=== PATIENT | female | born 1980 | race Caucasian/White ===

== ENCOUNTER 2022-03-02 10:07 | Outpatient (CLI) | payer BC, SELFPAY ==
--- NOTE | 2022-03-02 10:15 | CRLHL7_ITS ---
For Patients: As a result of the Century Cures Act, medical imaging exams and procedure reports are released immediately into your electronic medical record. You may view this report before your referring provider. If you have questions, please contact your health care provider. Indication: Neck pain and radiculopathy. Technique: MRI of the cervical spine was performed without the use of intravenous contrast. Comparison: None relevant available. Findings: The vertebral body heights appear maintained without evidence of fracture. No discrete T1 hypointense marrow infiltrating process. The disc space heights appear preserved. Hemangioma noted within the C4 vertebral body. No abnormal cord signal. C2-3: No spinal canal or neural foraminal narrowing. C3-4: No spinal canal or neural foraminal narrowing. C4-5: No spinal canal or neural foraminal narrowing. C5-6: Shallow disc bulge with minimal spinal canal narrowing. Mild neural foraminal narrowing secondary to uncovertebral joint and facet hypertrophy. C6-7: No spinal canal narrowing. Mild neural foraminal narrowing secondary to uncovertebral joint and facet hypertrophy. C7-T1: No spinal canal or neural foraminal narrowing. Impression: 1. At C5-6, shallow disc bulge with minimal spinal canal narrowing. Mild neural foraminal narrowing. 2. At C6-7, mild neural foraminal narrowing. 3. No abnormal cord signal. Dictated by Mariusz Cramer MD @ 03/02/2022 12:18:02 PM (Electronically Signed)
== END 2022-03-02 10:08 | disposition home or self-care (01) ==
PROVIDERS: PCP Physician Assistant Medical; Visit Provider Physician Assistant Medical
DX: M54.2 Cervicalgia (principal); M50.222 Other cervical disc displacement at C5-C6 level; M50.223 Other cervical disc displacement at C6-C7 level; R29.898 Other symptoms and signs involving the musculoskeletal system
CPT/HCPCS: 72141

== ENCOUNTER 2023-03-15 17:28 | Outpatient (CLI) | payer BC, SELFPAY | END 2023-03-15 17:29 | disposition home or self-care (01) | PROVIDERS: PCP Physician Assistant Medical; Visit Provider Emergency Medicine | DX: R25.3 Fasciculation (principal) | CPT/HCPCS: 82306; 82728; 83735; 84443 ==

== ENCOUNTER 2023-03-21 21:40 | Emergency (ER) | payer BC, SELFPAY ==
[2023-03-21 21:46] VITALS: BP 107/73; PULSE 81; RESP 18; TEMP 36.6; O2SAT 98; BMI 20.8
--- NOTE | 2023-03-21 22:00 | ED_ITS ---
HPI - General Adult General Time Seen by Provider: 22:01 Date Seen: 03/21/23 Chief complaint: Neuro Symptoms/Altered Deficit Stated complaint: Facial Numbness Time Seen by Provider: 03/21/23 21:41 Source: patient and RN notes reviewed Mode of arrival: ambulatory Limitations: no limitations History of Present Illness HPI narrative: This 42-year-old female is seen in exam room 5, coming in with symptoms that have been plaguing her for about a month now. She has had some numbness and tingling in her hands and feet, she has noticed it in her face. Last summer she had eye twitching, can not remember which 1. Now she notes she will get twitching muscles, can hit in different parts of her body. Mostly though she notes it in her feet and her legs at night. She did see a primary care provider in [place], notes reviewed. She had been concerned that the spironolactone that she had taken for acne had started this. She has been off this medicine for at least weeks now and symptoms have not changed. Over the course of the last couple weeks, is noticing more facial numbness, both sides of her face can be affected. Right now it seems to be largely her left cheek. She can feel her finger when she touches but she states it just feels numb otherwise. The refer of her mouth felt numb this morning. She denies any visual changes, no double vision. She denies any difficulty with speech or swallowing. She did go online, read about ALS. I have tried to reassure her that I do not think that this is likely ALS. She is not drinking any alcohol. She did try a gummy last night, she wonders if that is what affected her with a refer her mouth, she did not like the symptoms from this. She states she will never do that again. As far as sleeping, about every 4th night to get a good night sleep, she is up worried about her symptoms all night long. She notes that she has really had an increase in what is described as health anxiety, worrying about her health and different symptoms she is having. She had a fall on [place], did not hit her head. Her ferritin was found to be low, she was started on visit trauma and see about a week ago. I have advised her to continue taking that. We did discuss restless leg syndrome and low ferritin. She does not feel like her legs are necessarily restless legs syndrome, feels like it is more twitching. Related Data Home Medications Medication Instructions Recorded Confirmed cholecalciferol (vitamin D3) 25 25 mcg PO QDAY 01/29/22 03/21/23 mcg (1,000 unit) capsule elderberry fruit 350 mg capsule mg PO 01/29/22 03/15/23 magnesium 200 mg tablet 200 mg PO QDAY 01/29/22 03/21/23 omega-3 fatty acids-fish oil 300 cap PO 01/29/22 03/15/23 mg-500 mg capsule (Fish Oil) iron,carbonyl 65 mg-vitamin C 125 1 tab PO DAILY 03/21/23 03/21/23 mg tablet,delayed release (Vitron-C) Previous Rx's Medication Instructions Recorded trazodone 50 mg tablet 50 mg PO QHS PRN #14 tabs 03/21/23 Allergies Allergy/AdvReac Type Severity Reaction Status Date / Time Penicillins Allergy Mild Rash Verified 03/21/23 21:57 Review of Systems Narrative: [facility] per [facility]PI. [facility] Twitching ?R25.3 - Fasciculation (ICD-10) Surgical History History of ovarian cystectomy ?Z98.890 - Other specified postprocedural states (ICD-10) ?Z87.42 - Personal history of other diseases of the female genital tract (ICD-10) Social History Narrative: 2 children drinks alcohol occasionally non-smoker Smoking Status: Former smoker Do you use any of these nicotine containing products: None Second hand tobacco smoke exposure: No How often do you have a drink containing alcohol: monthly or less AUDIT-C Alcohol total score: 1 Non-prescribed substance use: denies use Little interest or pleasure in doing things: several days Feeling down, depressed, or hopeless: several days Exam Const: Vital Signs, click to edit/add: Vital Signs - 24 hr 03/21/23 21:46 Temperature 97.9 F Pulse Rate [Pulse Oximeter] 81 Respiratory Rate 18 Blood Pressure [Ri ght Upper Arm] 107/73 Pulse Oximetry 98 Oxygen Delivery Me thod Room Air This is a very pleasant 42-year-old female but do have a sense of anxiety. She is alert, interactive, ambulatory into the ED of her own accord. Pupils equal round reactive to light sclera clear extraocular muscles intact, symmetrical facial function. TMs canals normal. She can feel throughout her face, no true numbness. Neck is supple, no cervical adenopathy, no thyromegaly masses or nodules. Lungs are clear, good air entry, no wheezing or crackles. CV regular rate and rhythm, no murmur, normal S1-S2, no S3-S4. She has no lower extremity edema. DTRs are 1 to 2+ and symmetric throughout her extremities. Strength is 5 5 and symmetric. I do not see any tremor, no fasciculations or twitching while she is here. Documenting provider has reviewed patient's vital signs: yes Course Course ED Course: I spent some time discussing with patient and her her symptoms. I do think given that she is feeling numbness in not necessarily tingling in the face, would consider doing an MRI with and without to rule out any underlying [employer] disease. I unfortunately cannot order that for her, I do not have MRI capacity at this time to be able to do it and I cannot do outpatient orders for her. Discussed with her if her primary care provider does not want to do this, then perhaps she could ask for referral to Neurology and they could further evaluate her. I do think given her level of health anxiety, it might be necessary to do this either with a neurology consultation or just having a brain MRI done to ensure no underlying pathology. I have discussed trazodone for use of a sleep aid, encourage her to consider treatment of her anxiety. We discussed doing a head CT but given the nature of her symptoms, I highly doubt this is going to show anything it is just exposure to radiation. We discussed the rationale for deferring to an MRI. She does not need emergent MRI tonight. Vital Signs Vital signs: Initial Vital Signs Temperature 97.9 F 03/21/23 21:46 Temperature Source Temporal Artery Scan 03/21/23 21:46 Pulse Rate 81 03/21/23 21:46 Respiratory Rate 18 03/21/23 21:46 Blood Pressure 107/73 03/21/23 21:46 Blood Pressure Mean 84 03/21/23 21:46 Blood Pressure Position Sitting 03/21/23 21:46 Pulse Oximetry 98 03/21/23 21:46 Oxygen Delivery Method Room Air 03/21/23 21:46 Vital Signs Temperature 97.9 F 03/21/23 21:46 Pulse Rate 81 03/21/23 21:46 Respiratory Rate 18 03/21/23 21:46 Blood Pressure 107/73 03/21/23 21:46 Pulse Oximetry 98 03/21/23 21:46 Oxygen Delivery Method Room Air 03/21/23 21:46 Temperature 97.9 F 03/21/23 21:46 Pulse Rate 81 03/21/23 21:46 Respiratory Rate 18 03/21/23 21:46 Blood Pressure 107/73 03/21/23 21:46 Pulse Oximetry 98 03/21/23 21:46 Oxygen Delivery Method Room Air 03/21/23 21:46 Discharge Plan Discharge Clinical Impression: Facial numbness, Twitching, Numbness and tingling of both feet, Numbness and tingling of both legs Patient Disposition: Home, Self-Care Condition: Stable Instructions: Paresthesia (ED) Additional Instructions: Do recommend that you talk to her primary provider further and see if she would consider ordering MRI of your brain with and without IV contrast. This certainly will rule out any central process for your symptoms. Anxiety could be playing a large role but to affectively rule out any central nervous system abnormality, the MRI could be done. Neurology consultation could also be considered. I do think you should consider treating your anxiety regardless of workup of your symptoms. I will write for some trazodone which can be used to help with sleep. This is an old time antidepressant that has sleep properties. It does not necessarily have to be used every night. You could try melatonin and Tylenol p.m. or Benadryl. Activity Level: Activity as Tolerated Prescriptions: New trazodone 50 mg tablet 50 mg PO QHS PRNQty: 14 0RF No Action Fish Oil 300-500 mg capsule PO elderberry fruit 350 mg capsule PO cholecalciferol (vitamin D3) 25 mcg (1,000 unit) capsule 25 mcg PO QDAY Hold Instructions: Order Change magnesium 200 mg tablet 200 mg PO QDAY Hold Instructions: Order Change Vitron-C 65 mg iron- 125 mg tablet,delayed release (DR/EC) 1 tab PO DAILY Follow Up/Referrals: Hawa Dowling PA-C [Primary Care Provider] - Stand Alone Forms: MyHealth Info Instructions
== END 2023-03-21 22:54 | disposition home or self-care (01) ==
PROVIDERS: Emergency Provider Family Medicine; PCP Physician Assistant Medical
DX: G51.9 Disorder of facial nerve, unspecified (principal); R20.2 Paresthesia of skin; R25.3 Fasciculation
CPT/HCPCS: 99283; 99284

== ENCOUNTER 2023-05-17 15:49 | Outpatient (CLI) | payer BC, SELFPAY ==
--- NOTE | 2023-05-17 16:00 | US_ITS ---
Patient: JOSE L ROJAS Facility:?[facility] Patient ID:?[id number] Site Patient ID:?[id number]. Site :?[id number] Study:?US-Abdomen RUQ-05/17/2023 5:05:21 PM Ordering Physician:Hawa Osei Final Report: INDICATION: Abnormal appearing gallbladder wall on outside CT. TECHNIQUE: Ultrasound abdomen limited. Sonographic images of the right upper quadrant were obtained using putnam-scale and color Doppler images. COMPARISON: None. Specifically, the outside CT is not available. FINDINGS: Liver: Normal in size and echotexture. No masses. No intrahepatic biliary dilatation. Gallbladder: Gallbladder is incompletely distended. Adenomyomatosis in the gallbladder wall. No stones visible. Common bile duct: 5 mm. Pancreas: Normal. Right kidney: Normal in size. Normal echotexture and cortex. No suspicious masses, stones, or hydronephrosis. Vasculature: Proximal abdominal aorta and IVC are normal. IMPRESSION: Benign adenomyomatosis in the gallbladder wall. Otherwise normal. Dictated by Bari Malcolm MD @ 05/18/2023 11:40:48 AM Signed by:?Bari Malcolm MD @05/18/2023 11:40:48 AM (Electronic Signature)
== END 2023-05-17 15:50 | disposition home or self-care (01) ==
PROVIDERS: PCP Physician Assistant Medical; Visit Provider Physician Assistant Medical
DX: K82.8 Other specified diseases of gallbladder (principal)
CPT/HCPCS: 76705

== ENCOUNTER 2023-06-01 09:34 | Outpatient (CLI) | payer BC, SELFPAY | END 2023-06-01 09:35 | disposition home or self-care (01) | LOC: FRMREF 09:35 | PROVIDERS: PCP Physician Assistant Medical; Visit Provider Surgery | DX: R10.11 Right upper quadrant pain (principal) | CPT/HCPCS: 80076; 82728 ==

== ENCOUNTER 2023-06-15 08:50 | Outpatient (CLI) | payer BC, SELFPAY | END 2023-06-15 08:51 | disposition home or self-care (01) | LOC: NFLDREF 06-17 05:45 | PROVIDERS: PCP Physician Assistant Medical; Referring Provider Physician Assistant Medical; Visit Provider Physician Assistant Medical | DX: Z01.818 Encounter for other preprocedural examination (principal); R79.0 Abnormal level of blood mineral | CPT/HCPCS: 82728 ==

== ENCOUNTER 2023-06-20 06:16 | Day surgery (SDC) | payer BC, SELFPAY ==
[2023-06-20] VITALS (15 sets, daily range): BP systolic 91–113; BP diastolic 64–79; PULSE 60–77; RESP 12–16; TEMP 36.1–36.5; O2SAT 93–100; BMI 19.3
--- OUTSIDE RECORDS SUMMARY | 2023-06-20 06:18 | XMS_ITS | Clinical Summary ---
Author Name Unknown Organization [facility] Address [address] [place] [id number] Care Team Providers Care Manager Heavy Duty Name Role Phone Clinic, [facility] Primary Care Provider Allergies Active Allergy Reactions Criticality Noted Date Comments Blood-Group Specific Substance 06/09/2009 Patient has a Probable Passive Anti-D due to Rhogam. Blood product orders may be delayed. Penicillins Hives 04/21/2005 Medications Medication Sig Dispensed Refills Start Date End Date Status hydrOXYzine (ATARAX) 25 MG tablet Take 1 tablet (25 mg) by mouth 3 times daily as needed for anxiety 30 tablet 03/17/2022 Active Active Problems Problem Noted Date Diagnosed Date Myopia of both eyes with astigmatism 10/27/2015 Migraine headache 11/16/2005 Encounters Date Type Department Care Team Description 04/29/2023 2:51 PM CDT - 04/29/2023 5:09 PM CDT Emergency [facility] [address] [place] [address] Yazmin Whyte MD Generalized abdominal pain; Chest pain, unspecified type Discharge Disposition: Home or Self Care 04/29/2023 Travel 04/19/2023 9:26 AM SITE HEAD - 04/19/2023 11:59 PM SITE HEAD Hospital Encounter [facility] [address], [address] [place] [address] Jenelle Miranda MD Visit for screening mammogram Discharge Disposition: Home or Self Care 04/19/2023 Travel from Last 3 Months Immunizations Name Administration Dates Next Due [id number] Novel Flu 04/03/2009 HPV Quadrivalent 08/08/2008,09/21/2007, 8 Influenza (H1N1) 04/03/2009 Influenza (IIV3) PF 11/24/2005 Influenza Vaccine 18-64 (Flublok) 11/29/2019 Influenza,INJ,MDCK,PF,Quad >6mo(Flucelvax) 02/26,12/23/2017 TDAP (Adacel,Boostrix) 03/12/2020 Tdap (Adult) Unspecified Formulation 07/24/2007 Family History Medical History Relation Comments Depression Brother Unknown/Adopted Father Relation Status Comments Brother Alive Father Mother Alive Social History Tobacco Use Types Packs/Day Years Used Date Smoking Tobacco: Never Smokeless Tobacco: Never Alcohol Use Standard Drinks/Week Comments Yes 0 (1 standard drink = 0.6 oz pur e alcohol) occ. PHQ-2 Answer Date Recorded PHQ-2 Score 0 03/12/2020 Adolescent Education Answer Date Record ed Getting School Help Needed Not on file 11/27 Sex and Gender Information Value Date Recorded Sex Assigned at Not on file Gender Identity Not on file Sexual Orientation Not on file Last Filed Vital Signs Vital Sign Reading Time Taken Comments Blood Pressure 102/78 04/29/2023 5:06 PM CDT Pulse 85 04/29/2023 5:06 PM CDT Temperature 36.7 ??C (98 ??F) 04/29/2023 2:29 PM CDT Respiratory Rate 16 04/29/2023 5:06 PM CDT Oxygen Saturation 98% 04/29/2023 5:06 PM CDT Inhaled Oxygen Concentration - - Weight 63.9 kg (140 lb 14 oz) 04/29/2023 2:29 PM CDT Height 177.8 cm (5' 10) 04/29/2023 2:29 PM CDT Body Mass Index 20.21 04/29/2023 2:29 PM CDT Plan of Treatment Health Maintenance Due Date Last Done Comments ADVANCE CARE PLANNING 1981 ANNUAL REVIEW OF HM ORDERS 1981 HEPATITIS C SCREENING 11/07/1999 HEPATITIS B IMMUNIZATION (1 of 3 - 19+ 3-dose series) 2000 PAP 2002 COVID-19 Vaccine (1 - 2022- season) 2022 INFLUENZA VACCINE (#1) 2022 0, 02/26/2019, 12/23/2017, Additional history exists PHQ-2 (once per calendar year) 2023 03/12/2020 YEARLY PREVENTIVE VISIT 04/06/2023 04/06/19 23, 04/03/2021, 03/12/2020 LIPID 03/12/2025 03/12/2020 MAMMO SCREENING 04/18/2025 04/19/2023, 03/0 04/2022, 01/19/2017 GLUCOSE 04/28/2026 04/29/2023, 02/0 02/2022, 03/12/2020 DTAP/TDAP/TD IMMUNIZATION (3 - Td or Tdap) 03/12/2030 03/12/2020, 07/24/2007, 07/24/2007 HPV IMMUNIZATION Completed 08/08/2008, 08/2007, 07/24/2007 HIV SCREENING Completed 06/04/2009 IPV IMMUNIZATION Aged Out No longer e ligible based on patient's age to complete this topic MENINGITIS IMMUNIZATION Aged Out No l onger eligible based on patient's age to complete this topic Pneumococcal Vaccine: Pediatrics (0 to 5 Years) and At-Risk Patients (6 to 64 Years) Aged Out No longer eligible based on patient's age to complete this topic RSV MONOCLONAL ANTIBODY Aged Out No l onger eligible based on patient's age to complete this topic Procedures Procedure Name Priority Date/Time Associated Diagnosis Comments XR CHEST 2 VIEWS STAT 04/29/2023 4:[address] ABDOMEN PELVIS W CONTRAST STAT 04/29/2023 3:59 PM CDT EKG 12-LEAD, TRACING ONLY STAT 04/29/2023 3:37 PM CDT ROUTINE UA WITH MICROSCOPIC REFLEX TO CULTURE STAT 04/29/2023 3:21 PM CDT EXTRA RED TOP TUBE STAT 04/29/2023 3: 02 PM CDT CBC WITH PLATELETS & DIFFERENTIAL STAT 04/29/2023 2:58 PM CDT D DIMER QUANTITATIVE STAT 04/29/2023 2:58 PM CDT MAGNESIUM STAT 04/29/2023 2:58 PM CDT TSH WITH FREE T4 REFLEX STAT 04/29/2023 2:58 PM CDT HEPATIC FUNCTION PANEL STAT 04/29/2023 2:58 PM CDT EXTRA BLUE TOP TUBE STAT 04/29/2023 2 :58 PM CDT CBC WITH PLATELETS AND DIFFERENTIAL STAT 04/29/2023 2:58 PM CDT EXTRA TUBE STAT 04/29/2023 2:58 PM CDT HCG QUALITATIVE STAT 04/29/2023 2:58 PM CDT TROPONIN T, HIGH SENSITIVITY STAT 04/29/2023 2:58 PM CDT BASIC METABOLIC PANEL STAT 04/29/2023 2:58 PM CDT MA SCREENING WITH IMPLANTS BILATERAL W/ JOSE Routine 04/19/2023 10:07 AM SITE HEAD Visit for screening mammogram LIPID REFLEX TO DIRECT LDL PANEL Routine 03/12/2020 12:03 PM SITE HEAD Routine general medical examination at a health care facility REMOVE IMPACTED EAR WAX Routine 04/27/2000 1:35 PM SITE HEAD Impacted Cerumen from Last 3 Months or Most Recently Relevant to Health Maintenance Results * XR Chest 2 Views (04/29/2023 4:08 PM CDT) Anatomical Region Laterality Modality Chest Computed Radiogr aphy Impressions 04/29/2023 4:10 PM CDT IMPRESSION: No infiltrate, pleural effusion or pneumothorax. The cardiac and mediastinal silhouettes are normal. KAYLA EMERY MD Narrative 04/29/2023 4:10 PM CDT XR CHEST 2 VIEWS 04/29/2023 4:08 PM HISTORY: cp COMPARISON: 03/17/2022 Procedure Note Kayla Emery MD - 04/29/2023 XR CHEST 2 VIEWS 04/29/2023 4:08 PM HISTORY: cp COMPARISON: 03/17/2022 IMPRESSION: No infiltrate, pleural effusion or pneumothorax. The cardiac and mediastinal silhouettes are normal. KAYLA EMERY MD Yazmin Whyte MD IMG DIAGNOSTIC IMAGI NG ORDERABLES * CT Abdomen Pelvis w Contrast (04/29/2023 3:59 PM CDT) Anatomical Region Laterality Modality Abdomen/Pelvis, SUBRAD CT SOCRATES DY, UMP CT ABDOMEN PELVIS, RAD CT Computed Tomography Impressions 04/29/2023 4:13 PM CDT IMPRESSION: 1. ??Mild nonspecific circumferential bladder wall thickening which can be correlated with urinalysis as clinically indicated. 2. ??Otherwise, no acute findings within the abdomen or pelvis. 3. ??Focal soft tissue thickening of the gallbladder fundus which could represent gallbladder adenomyomatosis but should be further evaluated by right upper quadrant ultrasound which could be performed in the outpatient setting. SHANA GARCIA MD SYSTEM ID: ??[id number] Narrative 04/29/2023 4:[address] ABDOMEN PELVIS W CONTRAST 04/29/2023 3:59 PM CLINICAL HISTORY: Abdominal pain. abd pain, nausea TECHNIQUE: CT scan of the abdomen and pelvis was performed following injection of IV contrast. Multiplanar reformats were obtained. Dose reduction techniques were used. CONTRAST: 71mL Isovue-370 COMPARISON: None. FINDINGS: LOWER CHEST: Lung bases are clear. HEPATOBILIARY: Unremarkable liver. There is focal soft tissue thickening at the gallbladder at the fundus. No radiopaque gallstones. No biliary ductal dilatation. PANCREAS: No significant mass, duct dilatation, or inflammatory change. SPLEEN: Normal size. ADRENAL GLANDS: No significant nodules. KIDNEYS/BLADDER: Symmetric enhancement. No hydronephrosis. Right interpolar renal cyst, not requiring follow-up. Subcentimeter hypoattenuating lesion of the left kidney is too small to characterize but does not require specific follow-up. Mild circumferential wall thickening of the bladder. BOWEL: No obstruction or inflammatory change. Appendix is not definitely visualized; however, no focal inflammatory changes are seen in the right lower quadrant. PELVIC ORGANS: No pelvic masses. Tampon in the vagina. ADDITIONAL FINDINGS: No ascites. No adenopathy in the abdomen or pelvis. No abdominal aortic aneurysm. MUSCULOSKELETAL: No acute osseous findings. Partially imaged bilateral breast implants. Procedure Note Shana Garcia MD - 04/29/2023 CT ABDOMEN PELVIS W CONTRAST 04/29/2023 3:59 PM CLINICAL HISTORY: Abdominal pain. abd pain, nausea TECHNIQUE: CT scan of the abdomen and pelvis was performed following injection of IV contrast. Multiplanar reformats were obtained. Dose reduction techniques were used. CONTRAST: 71mL Isovue-370 COMPARISON: None. FINDINGS: LOWER CHEST: Lung bases are clear. HEPATOBILIARY: Unremarkable liver. There is focal soft tissue thickening at the gallbladder at the fundus. No radiopaque gallstones. No biliary ductal dilatation. PANCREAS: No significant mass, duct dilatation, or inflammatory change. SPLEEN: Normal size. ADRENAL GLANDS: No significant nodules. KIDNEYS/BLADDER: Symmetric enhancement. No hydronephrosis. Right interpolar renal cyst, not requiring follow-up. Subcentimeter hypoattenuating lesion of the left kidney is too small to characterize but does not require specific follow-up. Mild circumferential wall thickening of the bladder. BOWEL: No obstruction or inflammatory change. Appendix is not definitely visualized; however, no focal inflammatory changes are seen in the right lower quadrant. PELVIC ORGANS: No pelvic masses. Tampon in the vagina. ADDITIONAL FINDINGS: No ascites. No adenopathy in the abdomen or pelvis. No abdominal aortic aneurysm. MUSCULOSKELETAL: No acute osseous findings. Partially imaged bilateral breast implants. IMPRESSION: 1. Mild nonspecific circumferential bladder wall thickening which can be correlated with urinalysis as clinically indicated. 2. Otherwise, no acute findings within the abdomen or pelvis. 3. Focal soft tissue thickening of the gallbladder fundus which could represent gallbladder adenomyomatosis but should be further evaluated by right upper quadrant ultrasound which could be performed in the outpatient setting. SHANA GARCIA MD SYSTEM ID: [id number] Yazmin Whyte MD IMG CT ORDERABLES * EKG 12 lead (04/29/2023 3:37 PM CDT) Systolic Blood Pressure mmHg RADIOLOGY RESULTS Diastolic Blood Pressure mmHg RADIOLOGY RESULTS Ventricular Rate 70 BPM RAD IOLOGY RESULTS Atrial Rate 70 BPM RADIOLOG Y RESULTS CT Interval 158 ms RADIOLOG Y RESULTS QRS Duration 78 ms RADIOLO GY RESULTS QT 382 ms RADIOLOGY RESULTS QTc 412 ms RADIOLOGY RESULTS P [place] 70 degrees RADIOLOGY RESULTS R AXIS 66 degrees RADIOLOGY RESULTS T [place] 58 degrees RADIOLOGY RESULTS Interpretation ECG Sinus rhythm with sinus arrhythmia Normal ECG When compared with ECG of 17-MAR-2022 11:25, No significant change was found Unconfirmed report - interpretation of this ECG is computer generated - see medical record for final interpretation Confirmed by - EMERGENCY ROOM, PHYSICIAN ([id number]), legal editor [place] ([id number]) on 05/02/2023 7:38:39 AM RADIOLOGY RESULTS 04/29/2023 3:37 PM CDT 05/02/2023 7:38 AM CDT Yazmin Whyte MD ECG ORDERABLES RADIOLOGY RESULTS * UA with Microscopic reflex to Culture (04/29/2023 3:21 PM CDT) Color Urine Straw Colorless, Straw, Light Yellow, Yellow 04/29/2023 3:45 PM CDT [facility] Appearance Urine Clear Clear 04/29/19 24 3:45 PM CDT [facility] Glucose Urine Negative Negative mg/dL 04/29/2023 3:45 PM CDT [facility] Bilirubin Urine Negative Negative 3:45 PM CDT [facility] Ketones Urine Negative Negative mg/dL 04/29/2023 3:45 PM CDT [facility] Specific Honor Urine 1.004 1.003 - 1.035 04/29/2023 3:45 PM CDT [facility] Blood Urine Negative Negative 04/29/2023 3:45 PM CDT [facility] pH Urine 6.5 5.0 - 7.0 04/29/2023 3:45 PM CDT [facility] Protein Albumin Urine Negative Negative mg/dL 04/29/2023 3:45 PM CDT [facility] Urobilinogen Urine Normal Normal, 2.0 mg/dL 04/29/2023 3:45 PM CDT [facility] Nitrite Urine Negative Negative 04/29/2023 3:45 PM CDT [facility] Leukocyte Esterase Urine Negative Negative 04/29/2023 3:45 PM CDT [facility] RBC Urine 0 <=2 /HPF 04/29/2023 3:45 PM CDT [facility] WBC Urine <1 <=5 /HPF 04/29/2023 3:45 PM CDT [facility] Squamous Epithelials Urine 1 <=1 /HPF 04/29/2023 3:45 PM CDT [facility] Urine MID-STREAM URINE SPECIMEN / Unknown Non-blood Collection / Unknown 04/29/2023 3:21 PM CDT 04/29/2023 3:41 PM CDT Narrative [facility] - 04/29/2023 3:45 PM CDT Urine Culture not indicated Yazmin Whyte MD LAB - URINE ORDERABL ES [facility] [address] Lab (1st floor, no room number) [place] [address] [place] [address] * Extra Red Top Tube (04/29/2023 3:02 PM CDT) Hold Specimen [facility] 04/29/2023 4:06 PM CDT LABORATORY Blood BLOOD SPECIMEN / Unknown Venipuncture / Unknown 04/29/2023 3:02 PM CDT 04/29/2023 3:02 PM CDT Yazmin Whyte MD LAB - BLOOD ORDERABL ES [facility] [address] Lab (1st floor, no room number) [address] [place] [address] * Extra Blue Top Tube (04/29/2023 2:58 PM CDT) Hold Specimen [facility] 04/29/2023 4:06 PM CDT [facility] Blood STRUCTURE OF LEFT UPPER LIMB / Unknown Venipuncture / Unknown 04/29/2023 2:58 PM CDT 04/29/2023 3:03 PM CDT Yazmin Whyte MD LAB - BLOOD ORDERABL ES [facility] [address] Lab (1st floor, no room number) [place] [address], [facility] * CBC with platelets and differential (04/29/2023 2:58 PM CDT) WBC Count 5.4 4.0 - 11.0 10e3/uL 04/29/2023 3:06 PM CDT [facility] RBC Count 4.21 3.80 - 5.20 10e6/uL 04/29/2023 3:06 PM CDT [facility] Hemoglobin 13.4 11.7 - 15.7 g/dL 04/29/2023 3:06 PM CDT [facility] Hematocrit 40.0 35.0 - 47.0 % 04/29/2023 3:06 PM CDT [facility] MCV 95 78 - 100 fL 04/29/2023 3:06 PM CDT [facility] MCH 31.8 26.5 - 33.0 pg 04/29/2023 3:06 PM CDT [facility] MCHC 33.5 31.5 - 36.5 g/dL 04/29/2023 3:06 PM CDT [facility] RDW 13.2 10.0 - 15.0 % 04/29/2023 3:06 PM CDT [facility] Platelet Count 224 150 - 450 10e3/uL 04/29/2023 3:06 PM CDT [facility] % Neutrophils 70 % 04/29/2023 3:06 PM CDT [facility] % Lymphocytes 23 % 04/29/2023 3:06 PM CDT [facility] % Monocytes 6 % 04/29/2023 3:06 PM CDT [facility] % Eosinophils 1 % 04/29/2023 3:06 PM CDT [facility] % Basophils 0 % 04/29/2023 3:06 PM CDT [facility] % Immature Granulocytes 0 % 04/29/2023 3:06 PM CDT [facility] NRBCs per 100 WBC 0 <1 /100 024 3:06 PM CDT [facility] Absolute Neutrophils 3.8 1.6 - 8.3 10e3/uL 04/29/2023 3:06 PM CDT [facility] Absolute Lymphocytes 1.2 0.8 - 5.3 10e3/uL 04/29/2023 3:06 PM CDT [facility] Absolute Monocytes 0.3 0.0 - 1.3 10e3/uL 04/29/2023 3:06 PM CDT [facility] Absolute Eosinophils 0.1 0.0 - 0.7 10e3/uL 04/29/2023 3:06 PM CDT [facility] Absolute Basophils 0.0 0.0 - 0.2 10e3/uL 04/29/2023 3:06 PM CDT [facility] Absolute Immature Granulocytes 0.0 <=0.4 10e3/uL 04/29/2023 3:06 PM CDT [facility] Absolute NRBCs 0.0 10e3/uL 04/29/2023 3:06 PM CDT [facility] Blood STRUCTURE OF LEFT UPPER LIMB / Unknown Venipuncture / Unknown 04/29/2023 2:58 PM CDT 04/29/2023 3:03 PM CDT Yazmin Whyte MD LAB - BLOOD ORDERABL ES LABORATORY [facility] [address] [facility] Lab (1st floor, no room number) [place] [address] * Troponin T, High Sensitivity (now) (04/29/2023 2:58 PM CDT) Troponin T, High Sensitivity <6 <=14 ng/L 04/29/2023 3:33 PM CDT [facility] Comment: Either a High Sensitivity Troponin T baseline (0 hours) value = 100 ng/L, or an increase in High Sensitivity Troponin T = 7 ng/L at 2 hours compared to 0 hours (2-0 hours), suggests myocardial injury, and urgent clinical attention is required. ?? If the 2-0 hours increase is <7 ng/L, a High Sensitivity Troponin T result above gender-specific reference ranges warrants further evaluation. Recommendations for further evaluation include correlation with clinical decision-making tool (e.g., HEART), a 3rd High Sensitivity Troponin T test 2 hours after the 2nd (a 20% change from baseline would represent concern), admission for observation, close PCC/cardiology follow-up, or urgent outpatient provocative testing. Blood STRUCTURE OF LEFT UPPER LIMB / Unknown Venipuncture / Unknown 04/29/2023 2:58 PM CDT 04/29/2023 3:03 PM CDT Yazmin Whyte MD LAB - BLOOD ORDERABL ES [facility] [address] Lab (1st floor, no room number) [address] [place] [address] * TSH with free T4 reflex (04/29/2023 2:58 PM CDT) TSH 1.00 0.30 - 4.20 uIU/mL 04/29/2023 3:57 PM CDT [facility] Blood STRUCTURE OF LEFT UPPER LIMB / Unknown Venipuncture / Unknown 04/29/2023 2:58 PM CDT 04/29/2023 3:03 PM CDT Yazmin Whyte MD LAB - BLOOD ORDERABL ES Performing Organization Address City/[facility]/ZIP Co de Phone Number [facility] [address] Lab (1st floor, no room number) [place] [phone] [place] [address] * Magnesium (04/29/2023 2:58 PM CDT) Magnesium 2.3 1.7 - 2.3 mg/dL 04/29/2023 3:47 PM CDT [facility] Blood STRUCTURE OF LEFT UPPER LIMB / Unknown Venipuncture / Unknown 04/29/2023 2:58 PM CDT 04/29/2023 3:03 PM CDT Yazmin Whyte MD LAB - BLOOD ORDERABL ES [facility] [address] Lab (1st floor, no room number) [place] [phone] [place] [address] * Hepatic function panel (04/29/2023 2:58 PM CDT) Pathologist [facility] Protein Total 7.4 6.4 - 8.3 g/dL 04/29/2023 3:47 PM CDT [facility] Albumin 4.8 3.5 - 5.2 g/dL 04/29/2023 3:47 PM CDT [facility] Bilirubin Total 0.5 <=1.2 mg/dL 04/29/2023 3:47 PM CDT [facility] Alkaline Phosphatase 47 40 - 150 U/L 04/29/2023 3:47 PM CDT [facility] Comment:Reference intervals for this test were updated on 12/28/2022 to more accurately reflect our healthy population. There may be differences in the flagging of prior results with similar values performed with this method. Interpretation of those prior results can be made in the context of the updated reference intervals. AST 21 0 - 45 U/L 04/29/2023 3:47 PM CDT [facility] Comment:Reference intervals for this test were updated on 07/26/2022 to more accurately reflect our healthy population. There may be differences in the flagging of prior results with similar values performed with this method. Interpretation of those prior results can be made in the context of the updated reference intervals. ALT 14 0 - 50 U/L 04/29/2023 3:47 PM CDT [facility] Comment:Reference intervals for this test were updated on 07/26/2022 to more accurately reflect our healthy population. There may be differences in the flagging of prior results with similar values performed with this method. Interpretation of those prior results can be made in the context of the updated reference intervals. Bilirubin Direct <0.20 0.00 - 0.30 mg/dL 04/29/2023 3:47 PM CDT [facility] Blood STRUCTURE OF LEFT UPPER LIMB / Unknown Venipuncture / Unknown 04/29/2023 2:58 PM CDT 04/29/2023 3:03 PM CDT Yazmin Whyte MD LAB - BLOOD ORDERABL ES [facility] [address] [facility] [facility] Lab (1st floor, no room number) [place] [address], [place] * HCG QUALitative (blood) (04/29/2023 2:58 PM CDT) hCG Serum Qualitative Negative Negative MYRA 04/29/2023 3:38 PM CDT [facility] Comment:This test is for scr eening purposes. Results should be interpreted along with the clinical picture. Confirmation testing is available if warranted by ordering [id number], HCG Quantitative . Blood STRUCTURE OF LEFT UPPER LIMB / Unknown Venipuncture / Unknown 04/29/2023 2:58 PM CDT 04/29/2023 3:03 PM CDT Yazmin Whyte MD LAB - BLOOD ORDERABL ES Performing Organization Address City/[facility]/ZIP Co de Phone Number LABORATORY [facility] [address] Lab (1st floor, no room number) [place] [phone] * D dimer quantitative (04/29/2023 2:58 PM CDT) Pathologist [facility] D-Dimer Quantitative <0.27 0.00 - 0.50 ug/mL FEU 04/29/2023 3:31 PM CDT LABORATORY Blood STRUCTURE OF LEFT UPPER LIMB / Unknown Venipuncture / Unknown 04/29/2023 2:58 PM CDT 04/29/2023 3:03 PM CDT Narrative [facility] - 04/29/2023 3:31 PM CDT This D-dimer assay is intended for use in conjunction with a clinical pretest probability assessment model to exclude pulmonary embolism (PE) and deep venous thrombosis (DVT) in outpatients suspected of PE or DVT. The cut-off value is 0.50 ug/mL FEU. Yazmin Whyte MD LAB - BLOOD ORDERABL ES LABORATORY [facility] [address] Lab (1st floor, no room number) [place] [address], [facility] * Basic metabolic panel (BMP) (04/29/2023 2:58 PM CDT) Pathologist [facility] Sodium 140 135 - 145 mmol/L 04/29/2023 3:33 PM CDT [facility] Comment:Reference intervals for this test were updated on 11/09/2022 to more accurately reflect our healthy population. There may be differences in the flagging of prior results with similar values performed with this method. Interpretation of those prior results can be made in the context of the updated reference intervals. Potassium 4.3 3.4 - 5.3 mmol/L 04/29/2023 3:33 PM CDT [facility] Chloride 105 98 - 107 mmol/L 04/29/2023 3:33 PM CDT [facility] Carbon Dioxide (CO2) 25 22 - 29 mmol/L 04/29/2023 3:33 PM CDT [facility] Anion Gap 10 7 - 15 mmol/L 04/29/2023 3:33 PM CDT [facility] Urea Nitrogen 6.5 6.0 - 20.0 mg/dL 04/29/2023 3:33 PM CDT [facility] Creatinine 0.91 0.51 - 0.95 mg/dL 04/29/2023 3:33 PM CDT [facility] GFR Estimate 81 >60 mL/min/1. 73m2 04/29/2023 3:33 PM CDT [facility] Calcium 9.5 8.6 - 10.0 mg/dL 04/29/2023 3:33 PM CDT LABORATORY Glucose 96 70 - 99 mg/dL 04/29/2023 3:33 PM CDT LABORATORY Blood STRUCTURE OF LEFT UPPER LIMB / Unknown Venipuncture / Unknown 04/29/2023 2:58 PM CDT 04/29/2023 3:03 PM CDT Yazmin Whyte MD LAB - BLOOD ORDERABL ES LABORATORY [facility] [address] Lab (1st floor, no room number) [place] [address], [facility] * MA Screen with Implants Bilateral w/Jose (04/19/2023 10:07 AM SITE HEAD) Anatomical Region Laterality Modality Breast Bilateral Mammography Impressions 04/19/2023 10:30 AM SITE HEAD IMPRESSION: ACR BI-RADS Category 2: Benign BREAST CANCER SCREENING RECOMMENDATION: Routine yearly mammography beginning at age 40 or as discussed with your provider. The results and recommendations of this examination will be communicated to the patient. Reji Knight MD Narrative 04/19/2023 10:30 AM SITE HEAD BILATERAL FULL FIELD DIGITAL SCREENING MAMMOGRAM WITH TOMOSYNTHESIS Performed on: 04/19/23 Compared to: 04/16/2022 and 01/19/2017 Technique: ??This study was evaluated with the assistance of Computer-Aided Detection. ??Breast Tomosynthesis was used in interpretation. Findings: The breasts are heterogeneously dense, which may obscure small masses. ??There are breast augmentation changes in both breasts. There is no radiographic evidence of malignancy. Jenelle Miranda MD IMG MAMMOGRAPHY ANTOINE [facility] * Lipid panel reflex to direct LDL Fasting (03/12/2020 12:03 PM SITE HEAD) Cholesterol 149 <200 mg/dL 03/13/2020 11:22 AM SITE HEAD [facility] Triglycerides 63 <150 mg/dL 03/13/2020 11:22 AM SITE HEAD [facility] Comment:Non Fasting HDL Cholesterol 59 >49 mg/dL 11:29 AM SITE HEAD [facility] LDL Cholesterol Calculated 77 <100 mg/dL 03/13/2020 11:29 AM SITE HEAD [facility] Comment:Desirable: <100 mg/d l Non HDL Cholesterol 90 <130 mg/dL 03/13/2020 11:29 AM SITE HEAD [facility] Blood specimen (specimen) 03/12/2020 12:03 PM SITE HEAD 03/12/2020 12:04 PM SITE HEAD Asha Ashton APRN [employer] LAB - BLOO D ORDERABLES [facility] [address] [place] [address] from Last 3 Months or Most Recently Relevant to Health Maintenance Care Teams Manager Heavy Duty Relationship Specialty Start Date End Date Clinic, [address] [address] PCP - General 03/17/22
--- OUTSIDE RECORDS SUMMARY | 2023-06-20 06:19 | XMS_ITS | Encounter Summary ---
Author Name Unknown Organization [facility] Address [address] [place] [id number] Care Team Providers Care Adobe Layer Name Role Phone [facility] Primary Care Provider Encounter Details Date Type Department Care Team (Latest Contact Info) Description 04/29/2023 Travel Social History Tobacco Use Types Packs/Day Years [...] on file Sexual Orientation Not on file documented as of this encounter Plan of Treatment Not on file documented as of this encounter Visit Diagnoses Not on filedocumented in this encounter Care Teams Adobe Layer Relationship Specialty Start Date End Date [address] [id number] PCP - General 03/17/22 documented as of this encounter
--- OUTSIDE RECORDS SUMMARY | 2023-06-20 06:19 | XMS_ITS | Referral Summary ---
Author Name Unknown Organization [facility] Address [address] [place] [id number] Care Team Providers Care Mechanical Developer Prover Name Role Phone Clinic, [facility] Primary Care Provider Encounters Date Type Department Care Team Description 04/29/2023 Travel 04/29/2023 2:51 PM CDT - 04/29/2023 5:09 PM CDT Emergency [facility] Emergency Dept [address] [place] [address] Yazmin Whyte MD Generalized abdominal pain; Chest pain, unspecified type Discharge Disposition: Home or Self Care 04/19/2023 Travel 04/19/2023 9:26 AM DRAWING MACHINE OPERATOR - 04/19/2023 11:59 PM [facility] Hospital Encounter [facility] [address] [facility] [address] [place] [address] Jenelle Miranda MD Visit for screening mammogram Discharge Disposition: Home or Self Care from Last 3 Months Allergies Active Allergy Reactions Criticality Noted Date [...] eyes with astigmatism 10/27/2015 Migraine headache 11/16/2005 Immunizations Name Administration Dates Next Due [id number] Novel Flu 04/03/2009 HPV Quadrivalent 08/08/2008,09/21/2007, 8 Influenza (H1N1) 04/03/2009 Influenza (IIV3) PF 11/24/2005 Influenza Vaccine 18-64 (Flublok) 11/29/2019 Influenza,INJ,MDCK,PF,Quad >6mo(Flucelvax) 02/26,12/23/2017 TDAP (Adacel,Boostrix) 03/12/2020 Tdap (Adult) Unspecified Formulation 07/24/2007 Social History Tobacco Use Types Packs/Day Years [...] 04/29/2023 2:29 PM CDT Plan of Treatment Not on file Procedures Procedure Name Priority Date/Time Associated Diagnosis [...] BILATERAL W/ JOSE Routine 04/19/2023 10:07 AM DRAWING MACHINE OPERATOR Visit for screening mammogram LIPID REFLEX TO DIRECT LDL PANEL Routine 03/12/2020 12:03 PM DRAWING MACHINE OPERATOR Routine general medical examination at a health care facility REMOVE IMPACTED EAR WAX Routine 04/27/2000 1:35 PM DRAWING MACHINE OPERATOR Impacted Cerumen from Last 3 Months or [...] outpatient setting. SHANA GARCIA MD SYSTEM ID: [id number] Narrative 04/29/2023 4:[address] ABDOMEN [...] outpatient setting. SHANA GARCIA MD SYSTEM ID: [id number] Yazmin Whyte MD IMG CT ORDERABLES * EKG 12 lead (04/29/2023 3:37 PM CDT) Systolic Blood Pressure mmHg RADIOLOGY RESULTS Diastolic Blood Pressure mmHg RADIOLOGY RESULTS Ventricular Rate 70 BPM RAD IOLOGY RESULTS Atrial Rate 70 BPM RADIOLOG Y RESULTS WA Interval 158 ms RADIOLOG Y RESULTS QRS Duration 78 ms RADIOLO GY RESULTS QT 382 ms RADIOLOGY RESULTS QTc 412 ms RADIOLOGY RESULTS P [place] 70 degrees RADIOLOGY RESULTS R AXIS 66 degrees RADIOLOGY RESULTS T [place] 58 degrees RADIOLOGY RESULTS Interpretation ECG Sinus rhythm with sinus arrhythmia Normal ECG When compared with ECG of 17-MAR-2022 11:25, No significant change was found Unconfirmed report - interpretation of this ECG is computer generated - see medical record for final interpretation Confirmed by - EMERGENCY ROOM, PHYSICIAN ([id number]), department editor [place] ([id number]) on 05/02/2023 7:38:39 AM RADIOLOGY RESULTS 04/29/2023 [...] CDT [facility] Bilirubin Urine Negative Negative 4 3:45 PM CDT [facility] Ketones Urine Negative Negative mg/dL 04/29/2023 3:45 PM CDT [facility] Specific [place] Urine 1.004 1.003 - 1.035 04/29/2023 3:45 [...] 1 <=1 /HPF 04/29/2023 3:45 PM CDT LABORATORY Urine MID-STREAM URINE SPECIMEN / Unknown Non-blood Collection / Unknown 04/29/2023 3:21 PM CDT 04/29/2023 3:41 PM CDT Narrative [facility] - 04/29/2023 3:45 PM CDT Urine Culture not indicated Yazmin Whyte MD LAB - URINE ORDERABL ES [facility] [address] Lab (1st floor, no room number) [place] [address] * Extra Red Top Tube (04/29/2023 3:02 PM CDT) Pathologist [facility] Hold Specimen [facility] 04/29/2023 4:06 PM CDT LABORATORY Blood BLOOD SPECIMEN / Unknown Venipuncture / Unknown 04/29/2023 3:02 PM CDT 04/29/2023 3:02 PM CDT Yazmin Whyte MD LAB - BLOOD ORDERABL ES [facility] [address] Lab (1st floor, no room number) [place] [address], [facility] * Extra Blue Top Tube (04/29/2023 2:58 PM CDT) Hold Specimen [facility] 04/29/2023 4:06 PM CDT [facility] Blood STRUCTURE OF LEFT UPPER LIMB / Unknown Venipuncture / Unknown 04/29/2023 2:58 PM CDT 04/29/2023 3:03 PM CDT Yazmin Whyte MD LAB - BLOOD ORDERABL ES [facility] [address] Lab (1st floor, no room number) [place] [address], [facility] * CBC with platelets and differential (04/29/2023 [...] MD LAB - BLOOD ORDERABL ES LABORATORY [facility] [address] [facility] Lab (1st floor, no room number) [place] [address], [facility] * Troponin T, High Sensitivity (now) (04/29/2023 2:58 PM CDT) Pathologist [facility] Troponin T, High Sensitivity <6 <=14 ng/L [...] - BLOOD ORDERABL ES Performing Organization Address City/[facility]/ZIP Co de Phone Number [facility] Lab [address] Lab (1st floor, no room number) [address] [place] [address] * TSH with free T4 reflex (04/29/2023 2:58 PM CDT) TSH 1.00 0.30 - 4.20 uIU/mL 04/29/2023 3:57 PM CDT LABORATORY Blood STRUCTURE OF LEFT UPPER LIMB / Unknown Venipuncture / Unknown 04/29/2023 2:58 PM CDT 04/29/2023 3:03 PM CDT Yazmin Whyte MD LAB - BLOOD ORDERABL ES Performing Organization Address City/[facility]/ZIP Co de Phone Number [facility] [address] Lab (1st floor, no room number) [place] [phone] [place] [address] * Magnesium (04/29/2023 2:58 PM CDT) Magnesium 2.3 1.7 - 2.3 mg/dL 04/29/2023 3:47 PM CDT LABORATORY Blood STRUCTURE OF LEFT UPPER LIMB / Unknown Venipuncture / Unknown 04/29/2023 2:58 PM CDT 04/29/2023 3:03 PM CDT Yazmin Whyte MD LAB - BLOOD ORDERABL ES [facility] [address] Lab (1st floor, no room number) [place] [address], [facility] * Hepatic function panel (04/29/2023 2:58 PM CDT) Pathologist [facility] Protein Total 7.4 6.4 - 8.3 [...] - BLOOD ORDERABL ES Performing Organization Address [facility]/ZIP Co de Phone Number [facility] [address] Lab (1st floor, no room number) [place] [phone] * HCG QUALitative (blood) (04/29/2023 2:58 PM CDT) Pathologist [facility] hCG Serum Qualitative Negative Negative MYRA 04/29/2023 3:38 PM CDT [facility] Comment:This test is for scr eening purposes. Results should be interpreted along with the clinical picture. Confirmation testing is available if warranted by ordering [id number], HCG Quantitative . Blood STRUCTURE OF LEFT UPPER LIMB / Unknown Venipuncture / Unknown 04/29/2023 2:58 PM CDT 04/29/2023 3:03 PM CDT Yazmin Whyte MD LAB - BLOOD ORDERABL ES Performing Organization Address [facility] Co de Phone Number [facility] [address] Lab (1st floor, no room number) [place] [phone] * D dimer quantitative (04/29/2023 2:58 PM CDT) Pathologist [facility] D-Dimer Quantitative <0.27 0.00 - 0.50 ug/mL FEU 04/29/2023 3:31 PM CDT [facility] Blood STRUCTURE OF [...] LAB - BLOOD ORDERABL ES [facility] [address] Lab (1st floor, no room number) [place] [address], [facility] * Basic metabolic panel (BMP) (04/29/2023 2:58 PM CDT) Sodium 140 135 - 145 mmol/L 04/29/2023 [...] - 5.3 mmol/L 04/29/2023 3:33 PM CDT LABORATORY Chloride 105 98 - 107 mmol/L 04/29/2023 3:33 PM CDT LABORATORY Carbon Dioxide (CO2) 25 22 - 29 mmol/L 04/29/2023 3:33 PM CDT LABORATORY Anion Gap 10 7 - 15 mmol/L 04/29/2023 3:33 PM CDT [facility] Urea Nitrogen 6.5 6.0 - 20.0 mg/dL 04/29/2023 3:33 PM CDT [facility] Creatinine 0.91 0.51 - 0.95 mg/dL 04/29/2023 3:33 PM CDT LABORATORY GFR Estimate 81 >60 mL/min/1. 73m2 04/29/2023 3:33 PM CDT LABORATORY Calcium 9.5 8.6 - 10.0 mg/dL 04/29/2023 3:33 PM CDT LABORATORY Glucose 96 70 - 99 mg/dL 04/29/2023 3:33 PM CDT LABORATORY Blood STRUCTURE OF LEFT UPPER LIMB / Unknown Venipuncture / Unknown 04/29/2023 2:58 PM CDT 04/29/2023 3:03 PM CDT Yazmin Whyte MD LAB - BLOOD ORDERABL ES LABORATORY [facility] [address] Lab (1st floor, no room number) [place] [address], [facility] * MA Screen with Implants Bilateral w/Jose (04/19/2023 10:07 AM DRAWING MACHINE OPERATOR) Anatomical Region Laterality Modality Breast Bilateral Mammography Impressions 04/19/2023 10:30 AM DRAWING MACHINE OPERATOR IMPRESSION: ACR BI-RADS Category 2: Benign BREAST CANCER SCREENING RECOMMENDATION: Routine yearly mammography beginning at age 40 or as discussed with your provider. The results and recommendations of this examination will be communicated to the patient. Reji Knight MD Narrative 04/19/2023 10:30 AM DRAWING MACHINE OPERATOR BILATERAL FULL FIELD DIGITAL SCREENING MAMMOGRAM WITH [...] of malignancy. Jenelle Miranda MD IMG MAMMOGRAPHY [facility]FE * Lipid panel reflex to direct LDL Fasting (03/12/2020 12:03 PM DRAWING MACHINE OPERATOR) Cholesterol 149 <200 mg/dL 03/13/2020 11:22 AM DRAWING MACHINE OPERATOR [facility] Triglycerides 63 <150 mg/dL 03/13/2020 11:22 AM DRAWING MACHINE OPERATOR [facility] Comment:Non Fasting HDL Cholesterol 59 >49 mg/dL 11:29 AM DRAWING MACHINE OPERATOR [facility] LDL Cholesterol Calculated 77 <100 mg/dL 03/13/2020 11:29 AM DRAWING MACHINE OPERATOR [facility] Comment:Desirable: <100 mg/d l Non HDL Cholesterol 90 <130 mg/dL 03/13/2020 11:29 AM DRAWING MACHINE OPERATOR [facility] Blood specimen (specimen) 03/12/2020 12:03 PM DRAWING MACHINE OPERATOR 03/12/2020 12:04 PM DRAWING MACHINE OPERATOR Asha Ashton APRN INSURANCE CLAIMS ASSISTANT LAB - BLOO D ORDERABLES [facility] [address] [place] [address] from Last 3 Months or Most Recently Relevant to Health Maintenance Care Teams Mechanical Developer Prover Relationship Specialty Start Date End Date Clinic, [address] [address] PCP - General 03/17/22
--- OUTSIDE RECORDS SUMMARY | 2023-06-20 06:19 | XMS_ITS | Encounter Summary ---
Author Name Unknown Organization [facility] Address [address] [place] [address] Care Team Providers Care Information Technology Intern Name Role Phone Clinic, [facility] Primary Care Provider Reason for Referral * Diagnostic Imaging Ultrasound (Routine) - Pending Review Specialty Diagnoses / Procedures Referred By Contac t Referred To Contact Radiology. Diagnoses Generalized abdominal pain Procedures US Abdomen Complete Yazmin Whyte MD [facility] [address] [place] [address] Referral ID Status Reason Start Date Expiration Date V isits Requested Visits Authorized [id number] Pending Review 04/29/2023 04/28/2024 1 1 Reason for Visit * Reason Comments Abdominal Pain Encounter Details Date Type Department Care Team (Late st Contact Info) Description 04/29/2023 2:51 PM CDT - 04/29/2023 5:09 PM CDT Emergency [facility] Emergency Dept [address] [place] [address] Yazmin Whyte MD [facility] [address] [address] Generalized abdominal pain; Chest pain, unspecified type Discharge Disposition: Home or Self Care Social History Tobacco Use Types Packs/Day Years [...] on file documented as of this encounter Last Filed Vital Signs Vital Sign Reading [...] Mass Index 20.21 04/29/2023 2:29 PM CDT documented in this encounter Discharge Instructions * Discharge Instructions* Yazmin Whyte MD - 04/29/2023 4:53 PM CDT Radiology will call you to schedule ultrasound of your abdomen Follow up with your doctor next week * Attachments The following attachments cannot be sent through Care Everywhere. * Chest Pain (Tuvaluan) * Abdominal Pain ([place]uan) documented in this encounter Medications at Time of Discharge Medication Sig Dispensed Refills Start Date End Date hydrOXYzine (ATARAX) 25 MG tablet Take 1 tablet (25 mg) by mouth 3 times daily as needed for anxiety 30 tablet 03/17/2022 documented as of this encounter ED Notes * Yesenia Carrion RN - 04/29/2023 5:03 PM CDT Pt discharged with written instructions and order for an abdominal ultrasound. Pt verbalizes understanding of follow up and although nervous, states she will get the ultrasound to check her galbladder. No further questions at this time. Pt was able to walk to the ED lobby without issue. * Audra Barrera RN - 04/29/2023 2:28 PM CDT Arrives from home for several days of abd pain, palpitations, and dizziness. She states she pain inher abd is a intermittent twitching. Denies N/V. Mild diarrhea. ABCs intact. BP 124/89 Pulse 94 Temp 98 ??F (36.7 ??C) (Temporal) Resp 20 Ht 1.778 m (5' 10) Wt 63.9 kg (140 lb 14 oz) SpO2 100% BMI 20.21 kg/m?? Triage Assessment (Adult) Row Name 04/29/23 1428 Triage Assessment Airway WDL WDL Respiratory WDL Respiratory WDL WDL Cardiac WDL Cardiac WDL WDL Cognitive/Neuro/Behavioral WDL Cognitive/Neuro/Behavioral WDL WDL * Yazmin Whyte MD - 04/29/2023 2:24 PM CDT History Chief Complaint: Abdominal Pain HPI Anh Calderon is a 42 year old female who presents to the ED for evaluation of abdominal pain. Patient states for the last few days she began having pulsating pain in her central abdomen along with intermittent chest pain and palpitations. States she has also had some diarrhea, lightheadedness, andshortness of breath with exertion. States her symptoms are not due to anything in particular and not exacerbated with eating. Notes she had low iron the last time she had blood work done in March and has been taking iron supplements since. Denies nausea, vomiting, dizziness, urinary symptoms, and fever. Also denies recent abdominal surgery or history of heart problems. Independent Historian: None Review of External Notes: none Medications: Vitamin D Iron supplement Past Medical History: Myopia (B) Migraines Physical Exam Patient Vitals for the past 24 hrs: BP Temp Temp src Pulse Resp SpO2 Height Weight 04/29/23 1706 102/78 -- -- 85 16 98 % -- -- 04/29/23 1429 124/89 98 ??F (36.7 ??C) Temporal 94 20 100 % 1.778 m (5' 10) 63.9 kg (140 lb 14 oz) Physical Exam Constitutional: Appearance: She is well-developed. HENT: Right Ear: External ear normal. Left Ear: External ear normal. Mouth/Throat: Mouth: Mucous membranes are moist. Pharynx: Oropharynx is clear. No oropharyngeal exudate or posterior oropharyngeal erythema. Eyes: General: No scleral icterus. Extraocular Movements: Extraocular movements intact. Conjunctiva/sclera: Conjunctivae normal. Pupils: Pupils are equal, round, and reactive to light. Cardiovascular: Rate and Rhythm: Normal rate and regular rhythm. Heart sounds: Normal heart sounds. No murmur heard. No friction rub. No gallop. Pulmonary: Effort: Pulmonary effort is normal. No respiratory distress. Breath sounds: Normal breath sounds. No stridor. No wheezing, rhonchi or rales. Abdominal: General: Bowel sounds are normal. There is no distension. Palpations: Abdomen is soft. There is no mass. Tenderness: There is abdominal tenderness. There is no right CVA tenderness or left CVA tenderness. Comments: Mild diffuse BUQ TTP Musculoskeletal: General: Normal range of motion. Cervical back: Normal range of motion and neck supple. Skin: General: Skin is warm and dry. Capillary Refill: Capillary refill takes less than 2 seconds. Findings: No rash. Neurological: General: No focal deficit present. Mental Status: She is alert. Emergency Department Course ECG ECG taken at 1537, ECG read at 1542 Normal sinus rhythm with sinus arrhythmia Rate 70 bpm. IA interval 158 ms. QRS duration 78 ms. QT/QTc 382/412 ms. P-R-T axes 70 66 58. Imaging: XR Chest 2 Views Final Result IMPRESSION: No infiltrate, pleural effusion or pneumothorax. The cardiac and mediastinal silhouettes are normal. KAYLA EMERY MD CT Abdomen Pelvis w Contrast Final Result IMPRESSION: 1. Mild nonspecific circumferential bladder wall [...] outpatient setting. SHANA GARCIA MD SYSTEM ID: [id number] US Abdomen Complete (Results Pending) Laboratory: Labs Ordered and Resulted from Time of ED Arrival to Time of ED Departure BASIC METABOLIC PANEL - Normal Result Value Sodium 140 Potassium 4.3 Chloride 105 Carbon Dioxide (CO2) 25 Anion Gap 10 Urea Nitrogen 6.5 Creatinine 0.91 GFR Estimate 81 Calcium 9.5 Glucose 96 TROPONIN T, HIGH SENSITIVITY - Normal Troponin T, High Sensitivity <6 HCG QUALITATIVE - Normal hCG Serum Qualitative Negative HEPATIC FUNCTION PANEL - Normal Protein Total 7.4 Albumin 4.8 Bilirubin Total 0.5 Alkaline Phosphatase 47 AST 21 ALT 14 Bilirubin Direct <0.20 TSH WITH FREE T4 REFLEX - Normal TSH 1.00 MAGNESIUM - Normal Magnesium 2.3 ROUTINE UA WITH MICROSCOPIC REFLEX TO CULTURE - Normal Color Urine Straw Appearance Urine Clear Glucose Urine Negative Bilirubin Urine Negative Ketones Urine Negative Specific [place] Urine 1.004 Blood Urine Negative pH Urine 6.5 Protein Albumin Urine Negative Urobilinogen Urine Normal Nitrite Urine Negative Leukocyte Esterase Urine Negative RBC Urine 0 WBC Urine <1 Squamous Epithelials Urine 1 D DIMER QUANTITATIVE - Normal D-Dimer Quantitative <0.27 CBC WITH PLATELETS AND DIFFERENTIAL WBC Count 5.4 RBC Count 4.21 Hemoglobin 13.4 Hematocrit 40.0 MCV 95 MCH 31.8 MCHC 33.5 RDW 13.2 Platelet Count 224 % Neutrophils 70 % Lymphocytes 23 % Monocytes 6 % Eosinophils 1 % Basophils 0 % Immature Granulocytes 0 NRBCs per 100 WBC 0 Absolute Neutrophils 3.8 Absolute Lymphocytes 1.2 Absolute Monocytes 0.3 Absolute Eosinophils 0.1 Absolute Basophils 0.0 Absolute Immature Granulocytes 0.0 Absolute NRBCs 0.0 Emergency Department Course & Assessments: Interventions: Medications sodium chloride 0.9% BOLUS 1,000 mL (0 mLs Intravenous Stopped 04/29/23 165) CT Scan Flush (58 mLs Intravenous $Given 04/29/23 1553) iopamidol (ISOVUE-370) solution 500 mL (71 mLs Intravenous $Given 04/29/23 1553) Assessments: 1500 I obtained history and performed physical exam as noted above. 1645 I rechecked the patient and explained findings. Independent Interpretation (X-rays, CTs, rhythm strip): none Consultations/Discussion of Management or Tests: None Social Determinants of Health affecting care: None Disposition: The patient was discharged. Impression & Plan Medical Decision Making: Patient presents today for above complaints. She had mild upper abdominal tenderness on exam although she is more concerned about the pulsatile feeling that she has in her abdomen. I felt her aorta and it did not not feel enlarged and it was nontender. I reassured her. Her workup so far is negativeincluding a negative CT scan of the abdomen pelvis. There was a question about some thickening in her gallbladder wall. I refer her for an outpatient ultrasound. She is reassured that her labs today look normal. Her EKG and troponin were normal as well. I felt this is not consistent with ACS or anyconcerning pathology. D-dimer was negative therefore no need to further evaluate for PE. She is advised follow-up with her doctor next week. She can continue all her medications for now. Return precaution provided. Diagnosis: ICD-10-CM 1. Generalized abdominal pain R10.84 US Abdomen Complete 2. Chest pain, unspecified type R07.9 Discharge Medications: Discharge Medication List as of 04/29/2023 4:55 PM Scribe Disclosure: Mychal Bailey, am serving as a scribe animal trainer supervisor for Latanya Cardozo at 3:21 PM on 04/29/2023 Latanya Bailey, am serving as a scribe at 3:21 PM on 04/29/2023 to document services personally performed by Yazmin Whyte MD based on my observations and the provider's statements to me. 04/29/2023 Yazmin Whyte MD Cheng, Wenlan, MD 04/29/23 1800 documented in this encounter Plan of Treatment Scheduled Orders Name Type Priority Associated Diagnoses Orde r Schedule US Abdomen Complete Imaging Routine Generalized abdominal pain Expected: 04/29/2023 (Approximate), Expires: 07/28/2023 documented as of this encounter Procedures Procedure Name Priority Date/Time Associated Diagnosis Comments XR CHEST 2 VIEWS STAT 04/29/2023 4:[address] ABDOMEN PELVIS W CONTRAST STAT 04/29/2023 3:59 PM CDT EKG 12-LEAD, TRACING ONLY STAT 04/29/2023 3:37 PM CDT ROUTINE UA WITH MICROSCOPIC REFLEX TO CULTURE STAT 04/29/2023 3:21 PM CDT EXTRA RED TOP TUBE STAT 04/29/2023 3: 02 PM CDT EXTRA TUBE STAT 04/29/2023 2:58 PM CDT EXTRA BLUE TOP TUBE STAT 04/29/2023 2 :58 PM CDT CBC WITH PLATELETS AND DIFFERENTIAL STAT 04/29/2023 2:58 PM CDT TROPONIN T, HIGH SENSITIVITY STAT 04/29/2023 2:58 PM CDT CBC WITH PLATELETS & DIFFERENTIAL STAT 04/29/2023 2:58 PM CDT TSH WITH FREE T4 REFLEX STAT 04/29/2023 2:58 PM CDT MAGNESIUM STAT 04/29/2023 2:58 PM CDT HEPATIC FUNCTION PANEL STAT 04/29/2023 2:58 PM CDT HCG QUALITATIVE STAT 04/29/2023 2:58 PM CDT D DIMER QUANTITATIVE STAT 04/29/2023 2:58 PM CDT BASIC METABOLIC PANEL STAT 04/29/2023 2:58 PM CDT documented in this encounter Results * XR Chest 2 Views (04/29/2023 4:08 PM CDT) Anatomical Region Laterality Modality Chest Computed Radiogr aphy Impressions 04/29/2023 4:10 PM CDT IMPRESSION: No infiltrate, pleural effusion or pneumothorax. The cardiac and mediastinal silhouettes are normal. KAYLA EMERY MD Narrative 04/29/2023 4:10 PM CDT XR CHEST 2 VIEWS 04/29/2023 4:08 PM HISTORY: cp COMPARISON: 03/17/2022 Procedure Note Kayla Emeyr MD - 04/29/2023 XR CHEST 2 VIEWS [...] outpatient setting. SHANA GARCIA MD SYSTEM ID: [id number] Narrative 04/29/2023 4:[address] ABDOMEN [...] outpatient setting. SHANA GARCIA MD SYSTEM ID: [id number] Yazmin Whyte MD IMG CT ORDERABLES * EKG 12 lead (04/29/2023 3:37 PM CDT) Systolic Blood Pressure mmHg RADIOLOGY RESULTS Diastolic Blood Pressure mmHg RADIOLOGY RESULTS Ventricular Rate 70 BPM RAD IOLOGY RESULTS Atrial Rate 70 BPM RADIOLOG Y RESULTS IA Interval 158 ms RADIOLOG Y RESULTS QRS Duration 78 ms RADIOLO GY RESULTS QT 382 ms RADIOLOGY RESULTS QTc 412 ms RADIOLOGY RESULTS P Sheldon 70 degrees RADIOLOGY RESULTS R AXIS 66 degrees RADIOLOGY RESULTS T Sheldon 58 degrees RADIOLOGY RESULTS Interpretation ECG Sinus rhythm with sinus arrhythmia Normal ECG When compared with ECG of 17-MAR-2022 11:25, No significant change was found Unconfirmed report - interpretation of this ECG is computer generated - see medical record for final interpretation Confirmed by - EMERGENCY ROOM, PHYSICIAN ([id number]), science editor [place] ([id number]) on 05/02/2023 7:38:39 AM RADIOLOGY RESULTS 04/29/2023 3:37 PM CDT 05/02/2023 7:38 AM CDT Yazmin Whyte MD ECG ORDERABLES RADIOLOGY RESULTS * UA with Microscopic reflex to Culture (04/29/2023 3:21 PM CDT) Color Urine Straw Colorless, Straw, Light Yellow, Yellow 04/29/2023 3:45 PM CDT [facility] Appearance Urine Clear Clear 04/29/19 3:45 PM CDT [facility] Glucose Urine Negative Negative mg/dL 04/29/2023 3:45 PM CDT [facility] Bilirubin Urine Negative Negative 3:45 PM CDT [facility] Ketones Urine Negative Negative mg/dL 04/29/2023 3:45 PM CDT [facility] Specific [place] Urine 1.004 1.003 - 1.035 04/29/2023 3:45 [...] Whyte MD LAB - URINE ORDERABL ES [facility] Care Lab [address] Lab (1st floor, no room number) [address] [place] [address] * Extra Red Top Tube (04/29/2023 3:02 PM CDT) Hold Specimen JIC 04/29/2023 4:06 PM CDT [facility] Blood BLOOD SPECIMEN / Unknown Venipuncture / Unknown 04/29/2023 3:02 PM CDT 04/29/2023 3:02 PM CDT Yazmin Whyte MD LAB - BLOOD ORDERABL ES [facility] Care Lab [address] Lab (1st floor, no room number) [place] [id number] [place] [address] * D dimer quantitative (04/29/2023 2:58 PM CDT) D-Dimer Quantitative <0.27 0.00 - 0.50 ug/mL [...] - BLOOD ORDERABL ES Performing Organization Address City/[facility]/ZIP Co de Phone Number [facility] Acute Care Lab [address] Lab (1st floor, no room number) [address] [place] [address] * Magnesium (04/29/2023 2:58 PM CDT) Magnesium 2.3 1.7 - 2.3 mg/dL 04/29/2023 3:47 PM CDT LABORATORY Blood STRUCTURE OF LEFT UPPER LIMB / Unknown Venipuncture / Unknown 04/29/2023 2:58 PM CDT 04/29/2023 3:03 PM CDT Yazmin Whyte MD LAB - BLOOD ORDERABL ES Performing Organization Address [facility]/ZIP Co de Phone Number [facility] Lab [address] Lab (1st floor, no room number) [address] [place] [address] * TSH with free T4 reflex (04/29/2023 2:58 PM CDT) TSH 1.00 0.30 - 4.20 uIU/mL 04/29/2023 3:57 PM CDT LABORATORY Blood STRUCTURE OF LEFT UPPER LIMB / Unknown Venipuncture / Unknown 04/29/2023 2:58 PM CDT 04/29/2023 3:03 PM CDT Yazmin Whyte MD LAB - BLOOD ORDERABL ES Performing Organization Address City/[facility]/ZIP Co de Phone Number [facility] Care Lab [address] Lab (1st floor, no room number) [place] [address] [place] [address] * Hepatic function panel (04/29/2023 2:58 PM CDT) [facility] Protein Total 7.4 6.4 - 8.3 g/dL [...] MD LAB - BLOOD ORDERABL ES LABORATORY [facility] Acute Care Lab [address] [facility] Lab (1st floor, no room number) [place] [address], [facility] * Extra Blue Top Tube (04/29/2023 2:58 PM CDT) Hold Specimen JIC 04/29/2023 4:06 PM CDT [facility] Blood STRUCTURE OF LEFT UPPER LIMB / Unknown Venipuncture / Unknown 04/29/2023 2:58 PM CDT 04/29/2023 3:03 PM CDT Yazmin Whyte MD LAB - BLOOD ORDERABL ES [facility] Acute Care Lab [address] Lab (1st floor, no room number) [place] [address], [facility] * CBC with platelets and differential [...] LAB - BLOOD ORDERABL ES [facility] Acute Care Lab [address] [facility] Lab (1st floor, no room number) [place] [address], [facility] * HCG QUALitative (blood) (04/29/2023 2:58 PM CDT) hCG Serum Qualitative Negative Negative MYRA 04/29/2023 3:38 PM CDT [facility] Comment:This test is for scr eening purposes. Results should be interpreted along with the clinical picture. Confirmation testing is available if warranted by ordering [id number], HCG Quantitative . Blood STRUCTURE OF LEFT UPPER LIMB / Unknown Venipuncture / Unknown 04/29/2023 2:58 PM CDT 04/29/2023 3:03 PM CDT Yazmin Whyte MD LAB - BLOOD ORDERABL ES Performing Organization Address [facility]/ZIP Co de Phone Number LABORATORY [facility] Acute Care Lab [address] Lab (1st floor, no room number) [place] [address], [facility] * Troponin T, High Sensitivity (now) (04/29/2023 2:58 PM CDT) Troponin T, High Sensitivity <6 <=14 ng/L 04/29/2023 3:33 PM CDT LABORATORY Comment: Either a High Sensitivity Troponin [...] - BLOOD ORDERABL ES Performing Organization Address [facility]/ZIP Co de Phone Number [facility] Care Lab [address] Lab (1st floor, no room number) [place] [address], [facility] * Basic metabolic panel (BMP) (04/29/2023 2:58 PM CDT) Sodium 140 135 - 145 mmol/L 04/29/2023 3:33 PM CDT LABORATORY Comment:Reference intervals for this test were [...] - 15 mmol/L 04/29/2023 3:33 PM CDT LABORATORY Urea Nitrogen 6.5 6.0 - 20.0 mg/dL 04/29/2023 3:33 PM CDT LABORATORY Creatinine 0.91 0.51 - 0.95 mg/dL [...] MD LAB - BLOOD ORDERABL ES LABORATORY [facility] Acute Care Lab [address] [facility] Lab (1st floor, no room number) [place] [address], [facility] documented in this encounter Visit Diagnoses Diagnosis Generalized abdominal pain Abdominal pain, generalized Chest pain, unspecified type documented in this encounter Administered Medications Inactive Administered Medications - up to 3 most recent administrations Medication Order MAR Action Action Date Dose Rate Site CT Scan Flush Intravenous, 100 mL, ONCE, On Tue04/29/23 at 1555, For 1 dose, This entry is for use by Radiology to intermittently used as a flush in patients receiving a CT scan. $Given 04/29/2023 3:53 PM CDT 58 mLs iopamidol (ISOVUE-370) solution 500 mL 500 mL, Intravenous, ONCE, On Tue04/29/23 at 1555, For 1 dose $Given 04/29/2023 3:53 PM CDT 71 mLs sodium chloride 0.9% BOLUS 1,000 mL Intravenous, 1,000 mL, ONCE, at 1,000 mL/hr, Administer over 1 Hours, On Tue04/29/23 at 1515, For 1 dose $New Bag 04/29/2023 3:20 PM CDT 1,000 mLs 1000 mL/hr documented in this encounter Active and Recently Administered Medications Times are shown in CDT. Scheduled Medication Order 04/27/2023 04/28/2023 04/29/2023 CT Scan Flush (COMPLETED) Intravenous, 100 mL, ONCE, On Tue04/29/23 at 1555, For 1 dose, This entry is for use by Radiology to intermittently used as a flush in patients receiving a CT scan. 1553 ($Given - Provi marcela: Anais Cameron Flores) iopamidol (ISOVUE-370) solution 500 mL (COMPLETED) 500 mL, Intravenous, ONCE, On Tue04/29/23 at 1555, For 1 dose 1553 ($Given - Provi marcela: Anais A Mark) sodium chloride 0.9% BOLUS 1,000 mL (COMPLETED) Intravenous, 1,000 mL, ONCE, at 1,000 mL/hr, Administer over 1 Hours, On Tue04/29/23 at 1515, For 1 dose 1520 ($New Bag - Pro vider: Natasha Villanueva RN)[id number] (Stopped - Provider: Natasha Villanueva RN) documented in this encounter Care Teams Information Technology Intern Relationship Specialty Start Date End Date [facility], [place] [address] PCP - General 03/17/22 documented as of this encounter
--- OUTSIDE RECORDS SUMMARY | 2023-06-20 06:19 | XMS_ITS | Clinical Summary ---
Author Name Unknown Organization [facility] Address [place], [place] [address] Care Team Providers Care Hardboard Press Operator Name Role Phone Modesto Borjas MD Primary Care Provider [phone] Allergies Active Allergy Reactions Criticality Noted Date Comments Blood-Group Specific Substance 06/09/2009 Patient has a Probable Passive Anti-D due to Rhogam. Blood product orders may be delayed. Penicillins Hives 04/21/2005 Medications Medication Sig Dispensed Refills Start Date End Date Status ORSYTHIA 0.1-20 mg-mcg tablet TAKE 1 TABLET BY MOUTH ONCE DAILY. TAKE CONTINUOUSLY 0 08/20/2015 Active fluticasone (50 mcg per actuation) nasal solution (FLONASE)Indication s:Acute pansinusitis, recurrence not specified Inhale 2 Sprays into both nostrils once daily. 1 Bottle 08/21/2018 Active hydrocortisone (ANUSOL-HC) 2.5 % rectal cream APPLY TO AFFECTED AREA(S) TOPICALLY THREE TIMES A DAY NEEDED . 04/12/2021 Active clindamycin 1% (CLEOCIN-T) 1 % lotion APPLY TOPICALLY TO FACE EVERY MORNING 03/14/2021 Active hydrocortisone valerate (WESTCORT) 0.2 % ointment APPLY TO AFFECTED AREA(S) TOPICALLY TWO TIMES A DAY FOR ONE WEEK , THEN NEEDED 10/22/2020 Active Active Problems Problem Noted Date Diagnosed Date Myopia of both eyes with astigmatism 10/27/2015 Supervision of other normal 06/01/2006 Migraine, unspecified, witho ut mention of intractable migraine without mention of status migrainosus 11/16/2005 Immunizations Name Administration Dates Next Due Human Papilloma Virus Vaccine 08/08/2008, 008,07/24/2007 01/23/2008 Influenza A (H1N1), Inactiva catrachito (Age >=3 Years) 04/03/2009 Influenza, IIV3 (Age >=3 years) 11/24/2005 Tdap 07/24/2007 Family History Medical History Relation Name Comments Asthma Brother 2 Other Brother 3 HBV 21/glaucoma and cararacts Diabetes Maternal Grandfather Other Sister 2 Lazy eye Cancer Sister 3 cyst Relation Name Status Comments Brother 1 Alive four brothers Brother 2 Brother 3 Father Alive Maternal Grandfather Maternal Grandmother Alive Mother Alive Paternal Grandfather Alive Paternal Grandmother Alive Sister 1 Alive Sister 2 Sister 3 Social History Tobacco Use Types Packs/Day Years Used Date Smoking Tobacco: Former Cigarettes Q uit: 09/14/2005 Comments:Social Smoking Alcohol Use Standard Drinks/Week Comments Yes 2 (1 standard drink = 0.6 oz pur e alcohol) Sex and Gender Information Value Date Recorded Sex Assigned at Not on file Gender Identity Not on file Sexual Orientation Not on file Obstetrics History Para Term AB IAB SAB Ectopic Multiple Livin g Live Births 2 1 1 0 0 0 0 0 1 1 Date Outcome GA Total Labor Labor/2nd/3rd Weight Sex Delivery Anes PTL Deena A1 A5 Name Cl in Comments:System Genera catrachito. Please review and update details. 06/07 Term 40w 0d 24h 00m/ 3.71 kg (8 lb 3 oz) F Vag Angi ng Summe r [facility] ty Delivery Location:[place] Last Filed Vital Signs Vital Sign Reading Time Taken Comments Blood Pressure 104/70 08/21/2018 11:07 AM CDT Pulse 74 08/21/2018 11:07 AM CDT Temperature 36.7 ??C (98.1 ??F) 08/21/2018 11:07 AM C DT Respiratory Rate 18 08/21/2018 11:07 AM CDT Oxygen Saturation 97% 08/21/2018 11:07 AM CDT Inhaled Oxygen Concentration - - Weight 63.2 kg (139 lb 6.4 oz) 06/04/2009 11:02 AM CDT Height 176.5 cm (5' 9.5) 08/08/2008 8:36 AM CDT Body Mass Index 20.29 08/08/2008 8:36 AM CDT Plan of Treatment Health Maintenance Due Date Last Done Comments Depression screening for age 12+ 1993 BMI (ht and wt on same day) for age 18+ 11/07/1999 Hepatitis C screening for age 18-79 11/07/1999 Pap test for age 21-65 08/09/2011 9, 07/24/2007, 07/21/2006, Additional history exists Tetanus booster 07/23/2017 07/24/2007 COVID-19 vaccine series (2022-24 season) 2022 Influenza for age 9-49 10/16/2023 04/03/2009, 2005 Tdap Completed 07/24/2007 HIV for age 15-65 Completed 06/04/2009 Pneumococcal series for age 6-64 Aged Out No longer eligible based on patient's age to complete this topic Procedures Procedure Name Priority Date/Time Associated Diagnosis Comments ANTI HIV 1/2 Routine 06/04/2009 12:03 PM CDT Supervision of other normal CALL CENTER ASSOCIATE THIN PREP PAP SCREEN IMAGED Routine 08/08/2008 10:11 AM CDT Screening for Malignant Neoplasm of the Cervix from Last 3 Months or Most Recently Relevant to Health Maintenance Results * ANTI HIV 1/2 (06/04/2009 12:03 PM CDT) ANTI HIV 1/2 Non-reacti ve [facility] Blood specimen (specimen) BLOOD SPECIMEN / Unknown 06/04/2009 12:03 PM CDT 06/04/2009 11:49 AM CDT Adelina Worthington MD SEND OUTS [facility] INTERNAL ZIP [address] [address] * CALL CENTER ASSOCIATE THIN PREP PAP SCREEN IMAGED (08/08/2008 10:11 AM CDT) CYTOLOGY ??CYTOPATHOLOGY REPORT ??[facility] ?? Status: Final Report ? [id number] ?? CLINICAL INFORMATION ?Date of Last LMP ?: 07/22/08 ?Last Pap Date ? : 07/24/07 ?Last Pap Result ? : NIL ?ABN [place]/Bx Past 5 YRS: None ?Hormone Usage ? : None ?Menstrual Status ?: Regular Periods ?[place]/Bx done today ?: No ?Additional Data ? : None given ?? HPV Request ?: HPV if ASCUS ?? SPECIMEN SOURCE ?: Cervical/vaginal ThinPrep Vial, screening ?? SPECIMEN ADEQUACY ?: Satisfactory for evaluation Endocervical ?component present. ? INTERPRETATION/RES ULT: ?Negative for intraepithelial lesion or malignancy (NIL) ? Cytology 1st Screener : ??cml ?? Cytology 2nd Screener : ??gn ?? Signed by: ? gn ?? This specimen was screened by the FDA approved ThinPrep Imaging ?? System and manually reviewed. ?? NOTE: The Pap test is a screening technique, not a diagnostic ?? procedure. It is used primarily to screen for squamous cancers and ?? precursor lesions. Published studies have shown that it is subject to ?? both false negative and false positive results. The pap test should ?? not be used as the sole means to diagnose or exclude pre-malignant and ?? malignant lesions. ?? COLLECTED: 08/08/08 ?? ACCESSIONED: 08/08/08 ?? SIGNED: 08/15/08 [facility] PAP [place] CODE NIL [facility] Cervical/Vaginal (Cervical/Vagina l) 08/08/2008 10:11 AM CDT 08/08/2008 10:08 AM CDT Ayana Duggan MD PATHOLOGY/CYT OLOGY [facility] INTERNAL ZIP [address] [address] from Last 3 Months or Most Recently Relevant to Health Maintenance Care Teams Hardboard Press Operator Relationship Specialty [place] [id number] [address] [id number] PCP - General Family Practice 10/27/15
--- OUTSIDE RECORDS SUMMARY | 2023-06-20 06:19 | XMS_ITS | Encounter Summary ---
Author Name Unknown Organization [place] Address [address] [place] [address] Care Team Providers Care Director Of Instructional Technology Name Role Phone Clinic, [facility] Primary Care Provider Reason for Referral * Diagnostic Imaging Mammo (Routine) - Pending Review Specialty Diagnoses / Procedures Referred By Travis smith Referred To Contact Radiology. Diagnoses Visit for screening mammogram Procedures MA Screen with Implants Bilateral w/Jenelle Guido MD [address] [facility][1] [address] [place] [address] Referral ID Status Reason Start Date Expiration Date V isits Requested Visits Authorized [id number] Pending Review 04/07/2023 04/06/2024 1 1 INSPECTOR Reason for Visit * Diagnostic Imaging Mammo (Routine) - Pending Review Specialty Diagnoses / Procedures Referred By Travis t Referred To Contact Radiology. Diagnoses Visit for screening mammogram Procedures MA Screen with Implants Bilateral marques/Jenelle Guido MD [address] [employer] [address] [place] [address] Referral ID Status Reason Start Date Expiration Date V isits Requested Visits Authorized [id number] Pending Review 04/07/2023 04/06/2024 1 1 Encounter Details Date Type Department Care Team (Latest Contact Info) Description 04/19/2023 9:26 AM LEAD INSPECTOR - 04/19/2023 11:59 PM LEAD INSPECTOR Hospital Encounter [facility] [address] [facility] [place] [id number] Jenelle Miranda MD [address] [facility] [address] [place] [address] Visit for screening mammogram Discharge Disposition: Home or Self Care Social [...] on file documented as of this encounter Medications at Time of Discharge Medication Sig Dispensed Refills Start Date End Date hydrOXYzine (ATARAX) 25 MG tablet Take 1 tablet (25 mg) by mouth 3 times daily as needed for anxiety 30 tablet 03/17/2022 documented as of this encounter Plan of Treatment Not on file documented as of this encounter Procedures Procedure Name Priority Date/Time Associated Diagnosis Comments MA SCREENING WITH IMPLANTS BILATERAL W/ JOSE Routine 04/19/2023 10:07 AM LEAD INSPECTOR Visit for screening mammogram documented in this encounter Results * MA Screen with Implants Bilateral w/Jose (04/19/2023 10:07 AM LEAD INSPECTOR) Anatomical Region Laterality Modality Breast Bilateral Mammography Impressions 04/19/2023 10:30 AM LEAD INSPECTOR IMPRESSION: ACR BI-RADS Category 2: Benign BREAST CANCER SCREENING RECOMMENDATION: Routine yearly mammography beginning at age 40 or as discussed with your provider. The results and recommendations of this examination will be communicated to the patient. Reji Knight MD Narrative 04/19/2023 10:30 AM LEAD INSPECTOR BILATERAL FULL FIELD DIGITAL SCREENING MAMMOGRAM WITH [...] Jenelle Miranda MD IMG MAMMOGRAPHY ANTOINE MAYBERRY documented in this encounter Visit Diagnoses Diagnosis Visit for screening mammogram Other screening mammogram documented in this encounter Care Teams Director Of Instructional Technology Relationship Specialty Start Date End Date Clinic, [place] [id number] PCP - General 03/17/22 documented as of this encounter
--- OUTSIDE RECORDS SUMMARY | 2023-06-20 06:19 | XMS_ITS | Encounter Summary ---
Author Name Unknown Organization [place] Address [address] [place] [address] Care Team Providers Care Founder Name Role Phone [facility] Primary Care Provider Encounter Details Date Type Department Care Team (Latest Contact Info) Description 04/19/2023 Travel Social History Tobacco Use Types Packs/Day [...] on filedocumented in this encounter Care Teams Founder Relationship Specialty Start Date End Date [address] [id number] PCP - General 03/17/22 documented as of this encounter
--- OUTSIDE RECORDS SUMMARY | 2023-06-20 06:19 | XMS_ITS | Continuity of Care Document ---
Author Name Unknown Organization [facility] Address [address] [address] [place] [address] Phone Care Team Providers Care Filament Maker Name Role Phone Yordan Membreno MD Unavailable Unavailabl e Allergies, Adverse Reactions, Alerts Substance Reaction Status Criticality Penicillins rash,hives Active No Information Medications Medication Instructions Dosage Effective Dates (start - stop) Status Comments Control Pill Oral take 1 tablet daily by mouth - Active DEXILANT (unknown strength) take 1 capsule by oral route every day Not Available - Active Procedures Procedure Date Ugi Endo; W/bx 1/mx Level Iv-surg Path Gross/micro 14 Advance Directives Directive Yes / No Effective Date File Name No Information Encounters Encounter Description Practice Location Reason(s) For Visit Diagnoses Date Provider Providers Copied on Encounter [facility], [address] [address], [place], [place], [id number], [place] tel:[phone] [facility] No Information 4 Sherwin Farr. [address] [facility], [facility] [address], [place], [place], [id number] , [place]. tel:[phone] [facility], [address] [address], [place], [place], [id number], [place] tel:[phone] [facility] Abdominal Pain, UnspecifiedFla tul/eructat/ga s PainAbdominal Pain, UnspecifiedFla tul/eructat/ga s Pain 0-201 4 Brock Shepherd. [address] [facility], [address], [facility] [place], [id number] , [place]. [phone] Referring Provider: [place], [address] [place], [address]. tel:[phone] Family History Family Member Type Diagnosis Age At Onset No Information Payers Payer name Insurance type Covered green party ID Authoriza tion(s) No Information Social History Type Description Quantity Date Captured Comments Sex Female Smoking Status No Information Chief Complaint And Reason For Visit No Information Reason For Referral Reason For Referral No Information History Of Present Illness Encounter Date Complaint History Of Prese nt Illness No Information Functional Status Date Functional Assessmen t No Information Instructions Date Instruction Additional Infor mation No Information Assessments Type Assessment Date No Information Patient Care Teams Name Effective Dates (start - stop) Status Members No Information
--- OUTSIDE RECORDS SUMMARY | 2023-06-20 06:20 | XMS_ITS | Continuity of Care Document ---
Author Name Unknown Organization [facility] Address [address] [address] [place] [address] Phone Care Team Providers Care Energy Projects Lead Name Role Phone Yordan Membreno MD Unavailable [...] Diagnoses Date Provider Providers Copied on Encounter [facility], [address] [address], [place], [place], [id number], [place] tel:[phone] [facility] No Information 4 Sherwin Farr. [address] [facility], [facility] [address], [place], [place], [id number] , [place]. tel:[phone] [facility], [address] [address], [place], [place], [id number], [place] tel:[phone] [place] [facility] Abdominal Pain, UnspecifiedFla tul/eructat/ga s PainAbdominal Pain, UnspecifiedFla tul/eructat/ga s Pain 0-201 4 Brock Shepherd. [address] [facility], [address], [facility] [place], [id number] , [place]. [phone] Referring [place]: [place], [address] [place], [address]. tel:[phone] Family History Family Member Type Diagnosis Age At Onset No Information Payers Payer name Insurance type Covered libertarian ID Authoriza tion(s) No Information Social History [...]
[2023-06-20] MEDS: SODIUM CHLORIDE 0.9 % (FLUSH) 10 ML SYRINGE IVF (06:45)
[2023-06-20] MEDS: LACTATED RINGERS 1000 ML 1,000 ML 100 ML IV ×2 (06:45→10:04)
--- NOTE | 2023-06-20 06:55 | SUR.PREOP ---
pt declined HCG testing, has vasectomy. form signed.
--- NOTE | 2023-06-20 07:53 | W.PM.H&PU ---
History & Physical Update History & Physical Update H&P Reviewed and patient assessed: No changes noted
--- NOTE | 2023-06-20 07:54 | P.GSOP_ITS ---
Operative Note Date of procedure: 06/20/23 Pre-op diagnosis: Symptomatic gallbladder adenomyosis Post-op diagnosis: Same Type of Procedure: Laparoscopic cholecystectomy Indications: The patient is a 42-year-old female who has right upper quadrant pain after eating. A recent episode let her to the emergency department where CT scan showed a thickened gallbladder wall. She was sent home for follow-up and underwent ultrasound which showed adenomyomatosis. After discussion of options, because her symptoms do seem consistent with biliary disease, she elected to proceed with cholecystectomy. Procedure Description: After discussing the risks and benefits of the procedure, the patient signed informed consent.? The operative site was marked and the patient was brought to the operating room and placed on the operating table in supine position.? Care was taken to pad the patient's pressure points.?? The patient was then intubated by anesthesia.?? The operative site was then prepped and draped in the usual sterile fashion.? A time-out was then performed. Entrance to the abdomen was gained via a 5 mm Visiport in the left upper quadrant. The abdomen was insufflated and briefly surveyed for signs of injury. There was none. A 10 mm umbilical port was placed as well as 2 working ports along the right costal margin, all under direct vision. The patient was then placed in reverse Trendelenburg position with the right side up. The gallbladder fundus was grasped and retracted cephalad. A small amount of dissection was needed to free omental adhesions from the gallbladder. The infundibulum was grasped. A combination of hook cautery and blunt dissection was used to carefully dissect out the cystic duct and artery until they could clearly be seen entering the gallbladder without any intervening structures. The gallbladder was dissected off the cystic plate to achieve the critical view. Once this was achieved the cystic duct and artery were each clipped with 2 clips proximally and 1 clip distally and transected with the scissors. The gallbladder was then taken off of the liver bed and removed from the abdomen using an Endo- Catch bag. The gallbladder bed was surveyed for hemostasis which appeared adequate. The ports were then removed and the abdomen desufflated. The umbilical port site fascia was closed with 0 Vicryl. The skin was closed with absorbable subcuticular suture. Sterile dressings were then applied. Instrument sponge and needle counts were correct at the end of the case. The patient was then woken and transferred to the PACU in stable condition. The patient tolerated the procedure well. Findings: Omental adhesions to the gallbladder Anesthesia: JOSE ARMANDO Surgeon: Columba Prakash MD Estimated blood loss (mL): 5 Specimen: Gallbladder Condition: stable Disposition: PACU
[2023-06-20] MEDS: CLINDAMYCIN 900 MG/50 ML-D5W IVPB (08:11)
[2023-06-20] MEDS: BUPIVACAINE 0.25% 30 ML INJECTION (08:50)
--- NOTE | 2023-06-20 09:09 | W.ANESCHARGE ---
Anesthesia Charges Start Date/Time Anesthesia Start Date: 06/20/23 Anesthesia Start Time: 07:58 Stop Date/Time Anesthesia Stop Date: 06/20/23 Anesthesia Stop Time: 09:08
[2023-06-20] MEDS: fentaNYL 100 MCG/2 ML inj 50 MCG IVP ×3 (09:21→10:03)
[2023-06-20] MEDS: ACETAMINOPHEN 325 MG TABLET 650 MG PO (10:00)
[2023-06-20] MEDS: METOCLOPRAMIDE HCL 5 MG/ML INJ 10 MG IVP (11:33)
== END 2023-06-20 11:52 | disposition home or self-care (01) ==
PROVIDERS: PCP Physician Assistant Medical; Visit Provider Surgery
PROC: 0FT44ZZ Resection of Gallbladder, Percutaneous Endoscopic Approach (ICD-10-PCS; CPT 47562; principal; 2023-06-20 07:30)
DX: K82.8 Other specified diseases of gallbladder (principal)
CPT/HCPCS: 47562; 00790; 81025; 88304; A9270; J0665; J0736; J1100; J1885; J2250; J2405; J2704; J2710; J2765; J3010; J7120

== ENCOUNTER 2023-12-12 12:43 | Emergency (ER) | payer BC, SELFPAY ==
--- OUTSIDE RECORDS SUMMARY | 2023-12-12 12:46 | XMS_ITS | Referral Summary ---
Author Organization [place] Address [address] [place] [address]. [place] [address] Care Team Providers Care Crm Marketing Manager Name Role Phone Clinic, [facility] Primary Care Provider William Fowler DO Unavailable + Encounters Date Type Department Care Team Description 10/07/2023 Medical Correspondence [facility] Info [facility] [address] [place] [phone] Scan, Non-Provider from Last 3 Months Allergies Active Allergy Reactions Criticality Noted Date Comments Blood-Group Specific Substance 06/09/2009 Patient has a Probable Passive Anti-D due to Rhogam. Blood product orders may be delayed. Penicillins Hives 04/21/2005 Medications hydrOXYzine (ATARAX) 25 MG tablet Take 1 tablet (25 mg) by mouth 3 times daily as needed for anxiety 30 tablet 03/17/2022 Active Active Problems Problem Noted Date Diagnosed Date Myopia of both eyes with astigmatism 10/27/2015 Migraine headache 11/16/2005 Immunizations Name Administration Dates Next Due [id number] Novel Flu 04/03/2009 HPV Quadrivalent 08/08/2008,09/21/2007, 8 [...] School Help Needed Not on file 11/27 Comments No Sex and Gender Information Value Date Recorded Sex Assigned at Not on file Legal Sex Female 4:28 AM PERINATAL NURSE Gender Identity Not on file Sexual Orientation Not on file Last Filed Vital Signs Vital Sign Reading Time Taken Comments Blood Pressure 107/89 07/01/2023 11:58 AM CDT Pulse 80 07/01/2023 11:58 AM CDT Temperature 37 ??C (98.6 ??F) 07/01/2023 11:58 AM CDT Respiratory Rate 18 07/01/2023 11:58 AM CDT Oxygen Saturation 98% 07/01/2023 11:58 AM CDT Inhaled Oxygen Concentration - - Weight 63.9 kg (140 lb 14 oz) 04/29/2023 2:29 PM CDT Height 177.8 cm (5' 10) 04/29/2023 2:29 PM CDT Body Mass Index 20.21 04/29/2023 2:29 PM CDT Plan of Treatment Not on file Procedures Procedure Name Priority Date/Time Associated Diagnosis Comments MRI IMAGING - HIM SCAN 10/11/2023 12:00 AM CDT EMG - HIM SCAN 09/22/2023 12:00 AM CDT BASIC METABOLIC PANEL STAT 04/29/2023 2:58 PM CDT MA SCREENING WITH IMPLANTS BILATERAL W/ JOSE Routine 04/19/2023 10:07 AM PERINATAL NURSE Visit for screening mammogram LIPID REFLEX TO DIRECT LDL PANEL Routine 03/12/2020 12:03 PM PERINATAL NURSE Routine general medical examination at a health care facility from Last 3 Months or Most Recently Relevant to Health Maintenance Results * MRI Imaging - HIM Scan (10/11/2023 12:00 AM CDT) Anatomical Region Laterality Modality Other 10/11/2023 us Provider Outside IMG MRI ORDERABLES Final Result * EMG - HIM Scan (09/22/2023 12:00 AM CDT) 09/22/2023 us Provider Outside IP NEUROLOGY ORDERABLES Final R esult * Basic metabolic panel (BMP) (04/29/2023 2:58 [...] - 10.0 mg/dL 04/29/2023 3:33 PM CDT [facility] Glucose 96 70 - 99 mg/dL 04/29/2023 3:33 PM CDT [facility] Blood STRUCTURE OF LEFT UPPER LIMB / Unknown Venipuncture / Unknown 04/29/2023 2:58 PM CDT 04/29/2023 3:03 PM CDT us Yazmin Whyte MD LAB - BLOOD ORDERABLES Final Res ult [facility] [address] Lab (1st floor, no room number) [place] [address], [facility] * MA Screen with Implants Bilateral w/Jose (04/19/2023 10:07 AM PERINATAL NURSE) Anatomical Region Laterality Modality Breast Bilateral Mammography Impressions 04/19/2023 10:30 AM PERINATAL NURSE IMPRESSION: ACR BI-RADS Category 2: Benign BREAST CANCER SCREENING RECOMMENDATION: Routine yearly mammography beginning at age 40 or as discussed with your provider. The results and recommendations of this examination will be communicated to the patient. Reji Knight MD Narrative 04/19/2023 10:30 AM PERINATAL NURSE BILATERAL FULL FIELD DIGITAL SCREENING MAMMOGRAM WITH TOMOSYNTHESIS Performed on: 04/19/23 Compared to: 04/16/2022 and 01/19/2017 Technique: ??This study was evaluated with the assistance of Computer-Aided Detection. ??Breast Tomosynthesis was used in interpretation. Findings: The breasts are heterogeneously dense, which may obscure small masses. ??There are breast augmentation changes in both breasts. There is no radiographic evidence of malignancy. us Jenelle Miranda MD IMG MAMMOGRAPHY ORDERABLES Final Result * Lipid panel reflex to direct LDL Fasting (03/12/2020 12:03 PM PERINATAL NURSE) Cholesterol 149 <200 mg/dL 03/13/2020 11:22 AM PERINATAL NURSE [facility] Triglycerides 63 <150 mg/dL 03/13/2020 11:22 AM PERINATAL NURSE [facility] Comment:Non Fasting HDL Cholesterol 59 >49 mg/dL 11:29 AM PERINATAL NURSE [facility] LDL Cholesterol Calculated 77 <100 mg/dL 03/13/2020 11:29 AM PERINATAL NURSE [facility] Comment:Desirable: <100 mg/d l Non HDL Cholesterol 90 <130 mg/dL 03/13/2020 11:29 AM PERINATAL NURSE [facility] Blood specimen (specimen) 03/12/2020 12:03 PM PERINATAL NURSE 03/12/2020 12:04 PM PERINATAL NURSE Ashaerick Henderson Poli DAILY RELEASE AND DUPE PRINTER CNC SERVICE TECHNICIAN LAB - BLOOD ORDERA BLES Final Result [facility] [address] [place] [address] from Last 3 Months or Most Recently Relevant to Health Maintenance Insurance BCBS OF [place] BCBS [place] Care Teams Crm Marketing Manager Relationship Specialty Start Date End Date [facility], [address] [phone] PCP - General 03/17/22 William Fowler DO [address] [place] [address] Physician Neurology 07/04/23
--- OUTSIDE RECORDS SUMMARY | 2023-12-12 12:46 | XMS_ITS | Encounter Summary ---
Author Organization [place] Address [address] [place] [address]. [place] [address] Care Team Providers Care Gold Marker Name Role Phone [facility] Primary Care Provider William Fowler DO Unavailable + Encounter Details Date Type Department Care Team ([facility] Contact Info) Description 10/07/2023 Medical Correspondence [facility] Info [facility] [address] [place] [phone] Scan, Non-Provider Social History Tobacco Use Types Packs/Day Years [...] on file Legal Sex Female 4:28 AM BIOLOGY RESEARCH ASSISTANT Gender Identity Not on file Sexual Orientation Not on file documented as of this encounter Plan of Treatment Not on file documented as of this encounter Visit Diagnoses Not on filedocumented in this encounter Care Teams Gold Marker Relationship Specialty Start Date End Date [facility], [facility] [address] [place] [address] PCP - General 03/17/22 William Fowler DO [address] [place], [place] [phone] Physician Neurology 07/04/23 documented as of this encounter
--- OUTSIDE RECORDS SUMMARY | 2023-12-12 12:46 | XMS_ITS | Clinical Summary ---
Author Organization [place] Address [address] [place] [address]. [place] [address] Care Team Providers Care Design Cell Engineer Name Role Phone [facility], [facility] Primary Care Provider William Fowler DO Unavailable + Allergies Active Allergy Reactions Criticality Noted Date [...] Department Care Team Description 10/07/2023 Medical Correspondence [facility] [address] [place] [phone] Scan, Non-Provider from Last 3 Months Immunizations Name Administration Dates Next Due [id number] Novel Flu 04/03/2009 HPV Quadrivalent 08/08/2008,09/21/2007, 8 [...] on file Legal Sex Female 4:28 AM GANTRY RIGGER Gender Identity Not on file Sexual Orientation [...] 3 - 19+ 3-dose series) 2000 PAP 08/09/2011 08/08/2008 YEARLY PREVENTIVE VISIT 04/03/2022 04/03/2021, 03/12 PHQ-2 (once per calendar year) 2023 03/12/2020 COVID-19 Vaccine ( - season) 2023 INFLUENZA VACCINE (#1) 2023 , 02/26/2019, 02/26/2019, Additional history exists LIPID 03/12/2025 03/12/2020 MAMMO SCREENING 04/18/2025 04/19/2023, 03/0 04/2022, 01/19/2017 GLUCOSE 04/28/2026 04/29/2023, 02/0 02/2022, 03/12/2020 DTAP/TDAP/TD IMMUNIZATION (3 - Td or Tdap) 03/12/2030 03/12/2020, 07/24/2007, 07/24/2007 RSV VACCINE (1 - 1-dose 75+ series) 2056 HPV IMMUNIZATION Completed 08/08/2008, 08/2007, 07/24/2007 HIV SCREENING Completed 06/04/2009 MENINGITIS IMMUNIZATION Aged Out No l onger [...] BILATERAL W/ JOSE Routine 04/19/2023 10:07 AM GANTRY RIGGER Visit for screening mammogram LIPID REFLEX TO DIRECT LDL PANEL Routine 03/12/2020 12:03 PM GANTRY RIGGER Routine general medical examination at a health care facility from Last 3 Months or Most Recently Relevant to Health Maintenance Results * MRI Imaging - HIM Scan (10/11/2023 12:00 AM CDT) Anatomical Region Laterality Modality Other 10/11/2023 us Provider Outside IM MRI ORDERABLES Final Result * EMG - [...] LAB - BLOOD ORDERABLES Final Res ult [facility] [address] Lab (1st floor, no room number) [place] [address], [facility] * MA Screen with Implants Bilateral w/Jose (04/19/2023 10:07 AM GANTRY RIGGER) Anatomical Region Laterality Modality Breast Bilateral Mammography Impressions 04/19/2023 10:30 AM GANTRY RIGGER IMPRESSION: ACR BI-RADS Category 2: Benign BREAST CANCER SCREENING RECOMMENDATION: Routine yearly mammography beginning at age 40 or as discussed with your provider. The results and recommendations of this examination will be communicated to the patient. Reji Knight MD Narrative 04/19/2023 10:30 AM GANTRY RIGGER BILATERAL FULL FIELD DIGITAL SCREENING MAMMOGRAM WITH [...] to direct LDL Fasting (03/12/2020 12:03 PM GANTRY RIGGER) Cholesterol 149 <200 mg/dL 03/13/2020 11:22 AM GANTRY RIGGER [facility] Triglycerides 63 <150 mg/dL 03/13/2020 11:22 AM GANTRY RIGGER [facility] Comment:Non Fasting HDL Cholesterol 59 >49 mg/dL 11:29 AM GANTRY RIGGER [facility] LDL Cholesterol Calculated 77 <100 mg/dL 03/13/2020 11:29 AM GANTRY RIGGER [facility] Comment:Desirable: <100 mg/d l Non HDL Cholesterol 90 <130 mg/dL 03/13/2020 11:29 AM GANTRY RIGGER [facility] Blood specimen (specimen) 03/12/2020 12:03 PM GANTRY RIGGER 03/12/2020 12:04 PM GANTRY RIGGER us Asha Ashton APRN CHEMICAL PLANT OPERATOR SUPERVISOR LAB - BLOOD ORDERA BLES Final Result [facility] [address] [place] [address] from Last 3 Months or Most Recently Relevant to Health Maintenance [place] Care Teams Design Cell Engineer Relationship Specialty Start Date End Date Clinic, [address] [phone] PCP - General 03/17/22 William Fowler DO [address] [place] [address] Physician Neurology 07/04/23
--- OUTSIDE RECORDS SUMMARY | 2023-12-12 12:46 | XMS_ITS | Clinical Summary ---
Author Organization [facility] Address [place], [place] [address] Care Team Providers Care Cable Wirer Name Role Phone Modesto Borjas MD Primary Care Provider [phone] Allergies Active Allergy Reactions Criticality Noted Date [...] Outcome GA Total Labor Labor/2nd/3rd Weight Sex Type Anes PTL Deena A1 A5 Name Clin Comments:System Genera catrachito. Please review and update details. 2006 Term 40w 0d 24h 00m/ 3.71 kg (8 lb 3 oz) F Vag Livin g Summer Varun y Delivery Location:[place] Last Filed Vital Signs Vital Sign Reading [...] Tetanus booster 07/23/2017 07/24/2007 COVID-19 vaccine series (2023- season) 2023 Influenza for age 9-49 10/16/2023 04/03/2009, 2005 Tdap Completed 07/24/2007 HIV for age 15-65 Completed 06/04/2009 Pneumococcal series for age 6-64 Aged Out No longer eligible based on patient's age to complete this topic Procedures Procedure Name Priority Date/Time Associated Diagnosis Comments ANTI HIV 1/2 Routine 06/04/2009 12:03 PM CDT Supervision of other normal PERSONAL COMPANION THIN PREP PAP SCREEN IMAGED Routine 08/08/2008 10:11 AM CDT Screening for Malignant Neoplasm of the Cervix from Last 3 Months or Most Recently Relevant to Health Maintenance Results * ANTI HIV 1/2 (06/04/2009 12:03 PM CDT) ANTI HIV 1/2 Non-reacti ve [facility] Blood specimen (specimen) BLOOD SPECIMEN / Unknown 06/04/2009 12:03 PM CDT 06/04/2009 11:49 AM CDT Adelina Worthington MD SEND OUTS [facility] INTERNAL ZIP [address] [address] * PERSONAL COMPANION THIN PREP PAP SCREEN IMAGED (08/08/2008 10:11 AM CDT) CYTOLOGY ??CYTOPATHOLOGY REPORT ??[email or web address] ?? Status: Final Report ? [id number] ?? CLINICAL INFORMATION ?Date of Last LMP ?: 07/22/08 ?Last Pap Date ? : 07/24/07 ?Last Pap Result ? : NIL ?ABN [place]/Bx Past 5 YRS: None ?Hormone Usage ? : None ?Menstrual Status ?: Regular Periods ?[place]/Bx done today ?: No ?Additional Data ? [...] 08/08/08 ?? ACCESSIONED: 08/08/08 ?? SIGNED: 08/15/08 [facility] PAP [place] CODE NIL [facility] Cervical/Vaginal (Cervical/Vagina l) 08/08/2008 10:11 AM CDT 08/08/2008 10:08 AM CDT Ayana Duggan MD PATHOLOGY/CYT OLOGY [facility] INTERNAL ZIP [address] [address] from Last 3 Months or Most Recently Relevant to Health Maintenance Care Teams Cable Wirer Relationship Specialty [place] [id number] [address] [phone] PCP - General Family Practice 10/27/15
[2023-12-12 13:15] VITALS: BP 114/74; PULSE 89; RESP 16; TEMP 37; O2SAT 99; BMI 21.5
[2023-12-12 13:29] VITALS: O2SAT 93
--- NOTE | 2023-12-12 13:29 | CRLHL7_ITS ---
For Patients: As a result of the Century Cures Act, medical imaging exams and procedure reports are released immediately into your electronic medical record. You may view this report before your referring provider. If you have questions, please contact your health care provider. Indication: Shortness of breath and left rib pain Technique: Chest 2 views Comparison: Chest x-ray 06/14/2016 Findings/Impression: Cardiovascular and mediastinum: Heart size and vasculature are normal in caliber and appearance. Mediastinum is within normal limits. Lungs and pleural spaces: Lungs are clear. No sign of infiltrate or mass. No sign of pleural effusion. No pneumothorax. Bones and soft tissues: Right upper quadrant surgical clips. Dictated by Joao Sosa MD @ 12/12/2023 2:43:39 PM (Electronically Signed)
--- NOTE | 2023-12-12 13:49 | ED.GENADULT ---
HPI - General Adult General Chief complaint: Chest Pain Stated complaint: Chest upper ribcage gastro pain, short of breath Time Seen by Provider: 12/12/23 13:24 Source: patient Mode of arrival: ambulatory Limitations: no limitations History of Present Illness HPI narrative: 43-year-old female presenting today with chest pain going on for approximately 2 months. Patient has been dealing with significant reflux and had a GI appointment this morning where she mentioned her symptoms. GI recommended she be evaluated in the emergency department for her symptoms. She states that for 2 months she has significant reflux and burning her chest that sometimes she has a pressure in her chest. It occurs every day. It is not associated with physical activity. She states that she exercises regularly by taking long, fast walks with her and by doing workout videos at home. She states that she can get through her videos without having to stop. She states that she can have a conversation while she is doing her brisk walking and does not have to stop. This does not cause her to feel increased shortness of breath or increased chest pain when she is exercising. Sometimes she wakes up with the chest pain when it waxes and wanes throughout the day. It is central and does not really radiate. When it is at its worst she does not feel dizzy, lightheaded or short of breath. Patient has been dealing with other symptoms as well including tingling and ?buzzing? of her extremities, her face. This comes and goes as well. She has been worked up by a neurologist for this. This has been going on for several months. She denies any significant weight changes, no changes in her appetite. She denies tobacco use. She denies any family history or personal history of blood clots. Related Data Home Medications ?Medication ?Instructions ?Recorded ?Confirmed Saccharomyces boulardii 250 mg 250 mg PO BID 05/03/23 12/12/23 capsule (Daily Probiotic (S. boulardii)) clindamycin phosphate 1 % lotion topical 11/15/23 11/15/23 pantoprazole 40 mg tablet,delayed mg PO 11/15/23 11/15/23 release levonorgestrel 0.15 mg-ethinyl 1 tab PO DAILY 12/12/23 12/12/23 estradiol 30 mcg tablets,3 mos pack(91) Allergies Allergy/AdvReac Type Severity Reaction Status Date / Time Penicillins Allergy Mild Rash Verified 11/15/23 10:49 shellfish Allergy Intermediate throat Uncoded 11/15/23 10:49 itchiness, vomiting Review of Systems Status of ROS: Reports: 10 or more systems reviewed and unremarkable except as noted in History and below [facility] Medical History Adenomyomatosis of gallbladder ?D13.5 - Benign neoplasm of extrahepatic bile ducts (ICD-10) RUQ pain ?R10.11 - Right upper quadrant pain (ICD-10) Surgical History History of cholecystectomy ?Z90.49 - Acquired absence of other specified parts of digestive tract (ICD-10) History of ovarian cystectomy ?Z98.890 - Other specified postprocedural states (ICD-10) ?Z87.42 - Personal history of other diseases of the female genital tract (ICD-10) Social History Narrative: 2 children drinks alcohol occasionally non-smoker Smoking Status: Former smoker Do you use any of these nicotine containing products: None Second hand tobacco smoke exposure: No How often do you have a drink containing alcohol: monthly or less AUDIT-C Alcohol total score: 1 Non-prescribed substance use: denies use Little interest or pleasure in doing things: several days Feeling down, depressed, or hopeless: several days Are you using contraception or practicing any form of control: No (hubs vasectomy.) Exam Narrative: Exam Narrative: Well-nourished well-developed patient in no acute distress. Alert and oriented. Answers questions appropriately. Mood and affect are appropriate. Thoughts are goal oriented and rational. No tangential or magical thinking noted. Patient speaks in full sentences without needing to catch her breath. HEENT: Normocephalic atraumatic. Pupils are equally round reactive to light. Extraocular muscles are intact. Conjunctivae are moist without any icterus noted. Moist mucous membranes. Posterior pharynx is normal. Neck is soft without any lymphadenopathy or thyromegaly. No masses are appreciated. Cardiovascular: Heart is regular rate and rhythm S1 and S2 are present without any murmurs. Lungs: Clear to auscultation bilaterally no wheezes rhonchi or rales are appreciated. Patient takes deep breaths without any discomfort. Abdomen: Soft and nontender nondistended with normal bowel sounds. No guarding or rebound. No masses or organomegaly appreciated. Extremities: Bilateral lower extremities are without edema. Normal DP and PT pulses. Skin: Well perfused without any obvious rashes. Const: Vital Signs, click to edit/add: Vital Signs - 24 hr 12/12/23 13:15 12/12/23 13:29 12/12/23 15:16 Temperature 98.6 F 98.7 F Pulse Rate [Pulse Oximeter] 89 80 Respiratory Rate 16 18 Blood Pressure [Ri t Upper Arm] 114/74 102/77 Pulse Oximetry 99 93 100 Oxygen Delivery Me thod Room Air Room Air Course Course ED Course: EKG, read by me, shows normal sinus rhythm, occasionally notched P wave, with a pulse of 70. Chest x-ray, read by me, does not show any acute pathology. Her blood work was entirely normal. TSH results significantly delayed, so still pending at time of discharge. Vital Signs Vital signs: Initial Vital Signs Temperature 98.6 F 12/12/23 13:15 Temperature Source Temporal Artery Scan 12/12/23 13:15 Pulse Rate 89 12/12/23 13:15 Respiratory Rate 16 12/12/23 13:15 Blood Pressure 114/74 12/12/23 13:15 Blood Pressure Mean 87 12/12/23 13:15 Blood Pressure Position Sitting 12/12/23 13:15 Pulse Oximetry 99 12/12/23 13:15 Oxygen Delivery Method Room Air 12/12/23 13:15 Vital Signs Temperature 98.6 F 12/12/23 13:15 Pulse Rate 89 12/12/23 13:15 Respiratory Rate 16 12/12/23 13:15 Blood Pressure 114/74 12/12/23 13:15 Pulse Oximetry 99 12/12/23 13:15 Oxygen Delivery Method Room Air 12/12/23 13:15 Temperature 98.7 F 12/12/23 15:16 Pulse Rate 80 12/12/23 15:16 Respiratory Rate 18 12/12/23 15:16 Blood Pressure 102/77 12/12/23 15:16 Pulse Oximetry 100 12/12/23 15:16 Oxygen Delivery Method Room Air 12/12/23 15:16 Medical Decision Making MDM Narrative Medical decision making narrative: 43-year-old female with atypical chest pain, likely secondary to reflux. We discussed following up with GI as scheduled. Lab Data Lab results reviewed: Yes I reviewed the patient's lab results Labs: Lab Results 12/12/23 Range/Units 14:05 WBC 6.45 (4.50-11.00) K/uL RBC 4.06 (4.00-5.20) m/uL Hgb 12.7 (12.0-16.0) gm/dL Hct 38.3 (33.0-51.0) % MCV 94 (80-100) fL MCH 31 (26-34) pg MCHC 33 (32-36) gm/dL RDW Coeff of Stefani 12.0 (11.5-15.5) % Plt Count 191 (140-440) K/uL Neut % (Auto) 72.7 H (42.0-72.0) % Lymph % (Auto) 21.1 (20-44) % [place] % (Auto) 5.1 (0.0-11.0) % Eos % (Auto) 0.6 (0.0-7.0) % Baso % (Auto) 0.3 (0.0-3.0) % Neut # (Auto) 4.70 (1.7-7.0) K/uL Lymph # (Auto) 1.36 (0.90-2.90) K/uL [place] # (Auto) 0.30 (0.00-0.90) K/UL Eos # (Auto) 0.04 (0.00-0.50) K/uL Baso # (Auto) 0.02 (0.00-0.30) K/uL Abs Immat Gran (auto) 0.01 (0.00-0.30) K/uL Imm/Tot Granulo (auto) 0.2 % ESR 2 (2-20) mm/hr D-Dimer Quant (PE/DVT) < 0.27 (0.00-0.50) ug/ml Sodium 135 (135-149) mmol/L Potassium 4.3 (3.6-5.1) mmol/L Chloride 104 (96-114) mmol/L Carbon Dioxide 22 (20-32) mmol/L Anion Gap 9 (7-15) mEq/L BUN 11 (5-24) mg/dL Creatinine 0.8 (0.5-1.5) mg/dL Estimated Creat Clear 98.40 Estimated GFR 94 ml/min Glucose 93 (60-115) mg/dL Lactate 0.6 (0.5-1.9) mmol/L Calcium 9.3 (8.4-10.6) mg/dL Magnesium 2.1 (1.5-2.6) mg/dL Total Bilirubin 0.7 (0.1-1.5) mg/dL Direct Bilirubin 0.1 (0.0-0.5) mg/dL AST 22 (12-35) U/L ALT 12 (4-35) U/L Alkaline Phosphatase 40 (40-150) U/L Troponin I < 0.01 L (0.01-0.04) ng/mL C-Reactive Protein < 0.5 L (0.5-1.0) mg/dL Total Protein 7.2 (6.0-8.3) g/dL Albumin 4.5 (3.3-5.0) g/dL Lipase 86 (23-300) U/L Urine HCG, Qual Negative (Negative) SARS-CoV-2 (PCR) Negative SARS-CoV-2 (Negative) Influenza Type A (PCR) Negative PCR FLU A (Negative) Influenza Type B (PCR) Negative PCR FLU B (Negative) Imaging Data Chest x-ray: Attestation: I have reviewed the pertinent imaging results. Radiologist's impression: Chest 2 views Comparison: Chest x-ray 06/14/2016 Findings/Impression: Cardiovascular and mediastinum: Heart size and vasculature are normal in caliber and appearance. Mediastinum is within normal limits. Lungs and pleural spaces: Lungs are clear. No sign of infiltrate or mass. No sign of pleural effusion. No pneumothorax. Bones and soft tissues: Right upper quadrant surgical clips. ECG Data Attestation: I personally reviewed and interpreted this ECG as follows: Discharge Plan Discharge Clinical Impression: Atypical chest pain Additional Instructions: No evidence of lung or heart causes of your chest discomfort. Chest discomfort is likely due to reflux. Recommend following up with GI as scheduled. Prescriptions: No Action Saccharomyces boulardii [Daily Probiotic (S. boulardii)] 250 mg capsule 250 mg PO BID pantoprazole 40 mg tablet,delayed release (DR/EC) PO clindamycin phosphate 1 % lotion topical levonorgestrel-ethinyl estrad 0.15 mg-30 mcg (91) tablets,dose pack,3 month 1 tab PO DAILY Follow Up/Referrals: Hawa Dowling PA-C [Primary Care Provider] - Stand Alone Forms: [employer] Info Instructions
--- OUTSIDE RECORDS SUMMARY | 2023-12-12 13:56 | XMS_ITS | Referral Summary ---
Author Organization [place] Address [address] [place] [address]. [place] [address] Care Team Providers Care Public Speaker Name Role Phone Clinic, [facility] Primary Care Provider Wililam Fowler DO Unavailable + Encounters Date Type Department Care Team Description 10/07/2023 Medical Correspondence [facility] Info [facility] [address] [place] [phone] Scan, Non-Provider from Last 3 Months [...] 11/16/2005 Immunizations Name Administration Dates Next Due D0w6-30 Novel Flu 04/03/2009 HPV Quadrivalent 08/08/2008,09/21/2007, 8 [...] on file Legal Sex Female 4:28 AM FIXTURE FABRICATOR REPAIRER Gender Identity Not on file Sexual Orientation [...] BILATERAL W/ JOSE Routine 04/19/2023 10:07 AM FIXTURE FABRICATOR REPAIRER Visit for screening mammogram LIPID REFLEX TO DIRECT LDL PANEL Routine 03/12/2020 12:03 PM FIXTURE FABRICATOR REPAIRER Routine general medical examination at a health [...] LAB - BLOOD ORDERABLES Final Res ult [facility] [address] Lab (1st floor, no room number) [place] [address], [facility] * [place] Screen with Implants Bilateral w/Jose (04/19/2023 10:07 AM FIXTURE FABRICATOR REPAIRER) Anatomical Region Laterality Modality Breast Bilateral Mammography Impressions 04/19/2023 10:30 AM FIXTURE FABRICATOR REPAIRER IMPRESSION: ACR BI-RADS Category 2: Benign BREAST CANCER SCREENING RECOMMENDATION: Routine yearly mammography beginning at age 40 or as discussed with your provider. The results and recommendations of this examination will be communicated to the patient. Reji Knight MD Narrative 04/19/2023 10:30 AM FIXTURE FABRICATOR REPAIRER BILATERAL FULL FIELD DIGITAL SCREENING MAMMOGRAM WITH [...] to direct LDL Fasting (03/12/2020 12:03 PM FIXTURE FABRICATOR REPAIRER) Cholesterol 149 <200 mg/dL 03/13/2020 11:22 AM FIXTURE FABRICATOR REPAIRER [facility] Triglycerides 63 <150 mg/dL 03/13/2020 11:22 AM FIXTURE FABRICATOR REPAIRER [facility] Comment:Non Fasting HDL Cholesterol 59 >49 mg/dL 11:29 AM FIXTURE FABRICATOR REPAIRER [facility] LDL Cholesterol Calculated 77 <100 mg/dL 03/13/2020 11:29 AM FIXTURE FABRICATOR REPAIRER [facility] Comment:Desirable: <100 mg/d l Non HDL Cholesterol 90 <130 mg/dL 03/13/2020 11:29 AM FIXTURE FABRICATOR REPAIRER [facility] Blood specimen (specimen) 03/12/2020 12:03 PM FIXTURE FABRICATOR REPAIRER 03/12/2020 12:04 PM FIXTURE FABRICATOR REPAIRER Ashaerick Henderson Poli IT INFRASTRUCTURE SPECIALIST SHIPPING TRACK SUPERVISOR LAB - BLOOD ORDERA BLES Final Result [facility] [address] [place] [address] from Last 3 Months or Most Recently Relevant to Health Maintenance [place] Care Teams Public Speaker Relationship Specialty Start Date End Date [facility], [address] [phone] PCP - General 03/17/22 William Fowler DO [address] [place] [id number] Physician Neurology 07/04/23
--- OUTSIDE RECORDS SUMMARY | 2023-12-12 13:56 | XMS_ITS | Encounter Summary ---
Author Organization [place] Address [address] [place] [address]. 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
--- OUTSIDE RECORDS SUMMARY | 2023-12-12 13:56 | XMS_ITS | Clinical Summary ---
Author Organization [place] Address [address] [place] [address]. [place] [address] Care Team Providers Care Operations/Dispatch Name Role Phone [facility], [facility] Primary Care Provider William Fowler DO [...] Department Care Team Description 10/07/2023 Medical Correspondence [facility] [address] [place] [phone] Scan, Non-Provider from Last 3 Months Immunizations Name Administration Dates Next Due [id number] Novel Flu 04/03/2009 HPV Quadrivalent 08/08/2008,09/21/2007, 8 [...] on file Legal Sex Female 4:28 AM MANAGER CONTRACT Gender Identity Not on file Sexual Orientation [...] BILATERAL W/ JOSE Routine 04/19/2023 10:07 AM MANAGER CONTRACT Visit for screening mammogram LIPID REFLEX TO DIRECT LDL PANEL Routine 03/12/2020 12:03 PM MANAGER CONTRACT Routine general medical examination at a health [...] BLOOD ORDERABLES Final Res ult [facility] Acute Care Lab [address] Lab (1st floor, no room number) [place] [address], [facility] * [place] Screen with Implants Bilateral w/Jose (04/19/2023 10:07 AM MANAGER CONTRACT) Anatomical Region Laterality Modality Breast Bilateral Mammography Impressions 04/19/2023 10:30 AM MANAGER CONTRACT IMPRESSION: ACR BI-RADS Category 2: Benign BREAST CANCER SCREENING RECOMMENDATION: Routine yearly mammography beginning at age 40 or as discussed with your provider. The results and recommendations of this examination will be communicated to the patient. Reji Knight MD Narrative 04/19/2023 10:30 AM MANAGER CONTRACT BILATERAL FULL FIELD DIGITAL SCREENING MAMMOGRAM WITH [...] to direct LDL Fasting (03/12/2020 12:03 PM MANAGER CONTRACT) Cholesterol 149 <200 mg/dL 03/13/2020 11:22 AM MANAGER CONTRACT [facility] Triglycerides 63 <150 mg/dL 03/13/2020 11:22 AM MANAGER CONTRACT [facility] Comment:Non Fasting HDL Cholesterol 59 >49 mg/dL 11:29 AM MANAGER CONTRACT [facility] LDL Cholesterol Calculated 77 <100 mg/dL 03/13/2020 11:29 AM MANAGER CONTRACT [facility] Comment:Desirable: <100 mg/d l Non HDL Cholesterol 90 <130 mg/dL 03/13/2020 11:29 AM MANAGER CONTRACT [facility] Blood specimen (specimen) 03/12/2020 12:03 PM MANAGER CONTRACT 03/12/2020 12:04 PM MANAGER CONTRACT us Asha Ashton APRN BOTTLING EQUIPMENT SALES REPRESENTATIVE LAB - BLOOD ORDERA BLES Final Result [facility] [address] [place] [address] from Last 3 Months or Most Recently Relevant to Health Maintenance [place] Care Teams Operations/Dispatch Relationship Specialty Start Date End Date Clinic, [address] [phone] PCP - General 03/17/22 William Fowler DO [address] [place] [address] Physician Neurology 07/04/23
--- OUTSIDE RECORDS SUMMARY | 2023-12-12 13:57 | XMS_ITS | Clinical Summary ---
Author Organization [facility] Address [place], [place] [address] Care Team Providers Care Scientific Illustrator Name Role Phone Modesto Borjas MD Primary Care Provider [phone]- [phone] Allergies Active Allergy Reactions Criticality Noted Date [...] Vag Livin g Summer Varun y Delivery Location:[place] Last Filed Vital Signs Vital Sign Reading [...] 12:03 PM CDT Supervision of other normal RESPIRATORY THERAPY ASSISTANT THIN PREP PAP SCREEN IMAGED Routine 08/08/2008 10:11 AM CDT Screening for Malignant Neoplasm of the Cervix from Last 3 Months or Most Recently Relevant to Health Maintenance Results * ANTI HIV 1/2 (06/04/2009 12:03 PM CDT) ANTI HIV 1/2 Non-reacti ve [facility] Blood specimen (specimen) BLOOD SPECIMEN / Unknown 06/04/2009 12:03 PM CDT 06/04/2009 11:49 AM CDT Adelina Worthington MD SEND OUTS [facility] LAB[facility] INTERNAL ZIP [address] [address] * RESPIRATORY THERAPY ASSISTANT THIN PREP PAP SCREEN IMAGED (08/08/2008 10:11 AM CDT) CYTOLOGY ??CYTOPATHOLOGY REPORT ??[employer] ?? Status: Final Report ? [id number] ?? CLINICAL INFORMATION ?Date of Last LMP ?: 07/22/08 ?Last Pap Date ? : 07/24/07 ?Last Pap Result ? : NIL ?ABN [place]/Bx Past 5 YRS: None ?Hormone Usage ? : None ?Menstrual Status ?: Regular Periods ?[place]/Bx done today ?: No ?Additional Data ? [...] 08/08/08 ?? ACCESSIONED: 08/08/08 ?? SIGNED: 08/15/08 [facility] PAP BETHESDA CODE NIL [facility] Cervical/Vaginal (Cervical/Vagina l) 08/08/2008 10:11 AM CDT 08/08/2008 10:08 AM CDT Ayana Duggan MD PATHOLOGY/CYT OLOGY [facility] INTERNAL ZIP [address] [address] from Last 3 Months or Most Recently Relevant to Health Maintenance Care Teams Scientific Illustrator Relationship Specialty [place] [id number] [address] Carnes [phone] PCP - General Family Practice 10/27/15
[2023-12-12 14:16] LABS: Lactate* 0.6 mmol/L (0.5-1.9)
[2023-12-12 14:20] LABS: Basophils Absolute Auto 0.02 K/uL (0.00-0.30); Basophils Percent Auto 0.3 % (0.0-3.0); Eosinophils Absolute Auto 0.04 K/uL (0.00-0.50); Eosinophils Percent Auto 0.6 % (0.0-7.0); Hematocrit 38.3 % (33.0-51.0); Hemoglobin* 12.7 gm/dL (12.0-16.0); Immature Granulocytes Abs Auto 0.01 K/uL (0.00-0.30); Immature Granulocytes Pct Auto 0.2 %; Lymphocytes Absolute Auto 1.36 K/uL (0.90-2.90); Lymphocytes Percent Auto 21.1 % (20-44); Mean Corpuscular HGB Conc 33 gm/dL (32-36); Mean Corpuscular Hemoglobin 31 pg (26-34); Mean Corpuscular Volume 94 fL (80-100); Monocytes Percent Auto 5.1 % (0.0-11.0); Neutrophils Percent Auto 72.7 % (42.0-72.0); Platelet Count* 191 K/uL (140-440); Red Blood Count 4.06 m/uL (4.00-5.20); White Blood Count* 6.45 K/uL (4.50-11.00)
[2023-12-12 14:21] LABS: Ur HCG Qualitative* Negative (Negative)
[2023-12-12 14:25] LABS: Slide Review Reflex No
[2023-12-12 14:41] LABS: Albumin* 4.5 g/dL (3.3-5.0); Chloride* 104 mmol/L (96-114)
[2023-12-12 14:42] LABS: Potassium* 4.3 mmol/L (3.6-5.1); Sodium* 135 mmol/L (135-149)
[2023-12-12 14:44] LABS: Creatinine* 0.8 mg/dL (0.5-1.5); Estimated Glomerular Filt Rate 94 ml/min
[2023-12-12 14:45] LABS: Alanine Aminotransferase* 12 U/L (4-35); Alkaline Phosphatase* 40 U/L (40-150); Anion Gap 9 mEq/L (7-15); Aspartate Amino Transferase* 22 U/L (12-35); Bilirubin Direct* 0.1 mg/dL (0.0-0.5); Bilirubin Total* 0.7 mg/dL (0.1-1.5); Blood Urea Nitrogen* 11 mg/dL (5-24); Calcium* 9.3 mg/dL (8.4-10.6); Carbon Dioxide* 22 mmol/L (20-32); Glucose* 93 mg/dL (60-115); Lipase* 86 U/L (23-300); Total Protein* 7.2 g/dL (6.0-8.3)
[2023-12-12 14:46] LABS: Magnesium* 2.1 mg/dL (1.5-2.6)
[2023-12-12 14:53] LABS: C Reactive Protein* < 0.5 mg/dL (0.5-1.0)
[2023-12-12 15:01] LABS: PCR FLU A Negative PCR FLU A (Negative); PCR FLU B Negative PCR FLU B (Negative); SARS PCR* Negative SARS-CoV-2 (Negative); Troponin I* < 0.01 ng/mL (0.01-0.04)
[2023-12-12 15:12] LABS: D Dimer Quantitative* < 0.27 ug/ml (0.00-0.50)
[2023-12-12 15:16] VITALS: BP 102/77; PULSE 80; RESP 18; TEMP 37.1; O2SAT 100
[2023-12-12 15:32] LABS: Erythrocyte SedimentationRate* 2 mm/hr (2-20)
== END 2023-12-12 16:10 | disposition home or self-care (01) ==
PROVIDERS: Emergency Provider Family Medicine; PCP Physician Assistant Medical
DX: R07.89 Other chest pain (principal)
CPT/HCPCS: 36415; 71046; 80048; 80076; 81025; 83605; 83690; 83735; 84443; 84484; 85025; 85379; 85651; 86140; 87631; 93005; 94761; 99284; 99285

== ENCOUNTER 2023-12-17 14:43 | Emergency (ER) | payer BC, SELFPAY ==
[2023-12-17 14:47] VITALS: BP 125/78; PULSE 76; RESP 18; TEMP 36.6; O2SAT 99; BMI 21.5
--- NOTE | 2023-12-17 15:27 | CRLHL7_ITS ---
For Patients: As a result of the Century Cures Act, medical imaging exams and procedure reports are released immediately into your electronic medical record. You may view this report before your referring provider. If you have questions, please contact your health care provider. INDICATION: Left upper quadrant pain. TECHNIQUE: CT abdomen and pelvis acquired with 100 cc Omnipaque 350 IV contrast. COMPARISON: None. FINDINGS: Lower chest: Scattered atelectasis. Liver: Unremarkable. Normal in size and attenuation. No suspicious masses. Gallbladder and bile ducts: Prior cholecystectomy. Pancreas: Unremarkable. No mass or inflammation. Spleen: Unremarkable. Normal in size. No masses. Adrenal glands: Unremarkable. No nodules. Kidneys: Tiny cortical hypodensities, too small to characterize. No suspicious masses, stones, or hydronephrosis. GI tract: Moderate colonic stool burden.. Normal in caliber. No sign of mass or inflammation. Appendix not definitely seen, however no right lower quadrant inflammatory stranding to suggest appendicitis. Vasculature: Abdominal aorta is normal in caliber. Mesenteric arteries are patent. Lymph nodes: No lymphadenopathy. Peritoneum/Abdominal Wall: Unremarkable. No sign of mass or infiltration. No free air or significant free fluid. Pelvis: Mildly distended bladder with circumferential wall thickening. Recommend correlation with urinalysis for UTI if suspected. Tiny right ovarian cyst with trace free fluid in the pelvis, likely physiologic. Bones: Unremarkable for age. IMPRESSION: No acute intra-abdominal/pelvic abnormality. Moderate colonic stool burden. Mildly distended bladder with circumferential wall thickening. Recommend correlation with urinalysis for UTI if suspected. Tiny right ovarian cyst with trace free fluid in the pelvis, likely physiologic. Please note that all CT scans at this facility use dose modulation, iterative reconstruction, and/or weight-based dosing when appropriate to reduce radiation dose to as low as reasonably achievable. Dictated by Mike Mackey MD @ 12/17/2023 4:07:42 PM (Electronically Signed)
--- NOTE | 2023-12-17 15:38 | ED.ABDPAIN ---
HPI - Abdominal Pain General Chief Complaint: Abdominal Pain Stated Complaint: abdominal pain Time Seen by Provider: 12/17/23 14:44 History of Present Illness HPI narrative: This 43-year-old female comes in with concern about upper epigastric abdominal pain. She states that this pain is been bothering her on and off for a few years. She does have reflux symptoms and is taking a proton pump inhibitor. She did see a guest experience captain recently who referred her back here to the emergency department because she was reporting some chest pain related to her symptoms. She had a workup done here including chest x-ray and labs about a week ago all with normal results. She states that currently her upper abdominal pain is become more constant. She does report frequent small burping. She did have her gallbladder removed earlier this year and states that these symptoms are not similar to the symptoms she was having then. Related Data Home Medications ?Medication ?Instructions ?Recorded ?Confirmed Saccharomyces boulardii 250 mg 250 mg PO BID 05/03/23 12/17/23 capsule (Daily Probiotic (S. boulardii)) clindamycin phosphate 1 % lotion topical 11/15/23 11/15/23 pantoprazole 40 mg tablet,delayed 40 mg PO 11/15/23 11/15/23 release levonorgestrel 0.15 mg-ethinyl 1 tab PO DAILY 12/12/23 12/12/23 estradiol 30 mcg tablets,3 mos pack(91) Allergies Allergy/AdvReac Type Severity Reaction Status Date / Time Penicillins Allergy Mild Rash Verified 11/15/23 10:49 shellfish Allergy Intermediate throat Uncoded 11/15/23 10:49 itchiness, vomiting Review of Systems Status of ROS Reports: 10 or more systems reviewed and unremarkable except as noted in History and below Narrative Constitutional: No fevers, no weight gain or loss. Eyes: No discharge. No vision changes. HENT: No congestion, no sore throat, no ear pain. Cardiovascular: No chest pain, no palpitations. Respiratory: No shortness of breath, no wheezes, no cough. Gastrointestinal: No vomiting, no diarrhea. Abdominal pain as described above. Genitourinary: No dysuria, no hematuria. Musculoskeletal: Normal range of motion. Skin: No rashes, no pruritis. Neurological: No dizziness, weakness, sensory change, speech change. Endo/Heme/Allergies: No bruising or bleeding. No polydipsia. Pysch: no suicidality, no anxiety, no insomnia. All other systems reviewed and are negative. [facility] Medical History Adenomyomatosis of gallbladder ?D13.5 - Benign neoplasm of extrahepatic bile ducts (ICD-10) RUQ pain ?R10.11 - Right upper quadrant pain (ICD-10) Surgical History History of cholecystectomy ?Z90.49 - Acquired absence of other specified parts of digestive tract (ICD-10) History of ovarian cystectomy ?Z98.890 - Other specified postprocedural states (ICD-10) ?Z87.42 - Personal history of other diseases of the female genital tract (ICD-10) Social History Narrative: 2 children drinks alcohol occasionally non-smoker Smoking Status: Former smoker Do you use any of these nicotine containing products: None Second hand tobacco smoke exposure: No How often do you have a drink containing alcohol: monthly or less AUDIT-C Alcohol total score: 1 Non-prescribed substance use: denies use Little interest or pleasure in doing things: several days Feeling down, depressed, or hopeless: several days Are you using contraception or practicing any form of control: No (hubs vasectomy.) Exam Narrative: Exam Narrative: Constitutional: Well-developed, well-nourished, no acute distress. HEENT: Normocephalic, atraumatic. Neck: Normal range of motion. Nontender. Supple. Heart: Regular. No murmurs. Normal rate. Intact distal pulses. Lungs: Clear to auscultation. No chest discomfort. No wheezes, rhonchi, or rales. Abdomen: Normal bowel sounds. No rebound tenderness. Mild upper epigastric abdominal pain. Genitalia: Deferred. Back: No midline tenderness. Normal range of motion. Extremities: Normal range of motion. No injury. Skin: Intact. No rash. Warm. No erythema or pallor. Neurologic: No altered sensation. No weakness. Alert and oriented. Psychiatric: No suicidality. No anxiety or depression. No insomnia. Nursing notes and vitals signs are reviewed. Const: Vital Signs, click to edit/add: Vital Signs - 24 hr 12/17/23 14:47 Temperature 97.9 F Pulse Rate [Right Pulse Oximeter] 76 Respiratory Rate 18 Blood Pressure [Ri ght Upper Arm] 125/78 Pulse Oximetry 99 Oxygen Delivery Me thod Room Air Course Vital Signs Vital signs: Initial Vital Signs Temperature 97.9 F 12/17/23 14:47 Temperature Source Temporal Artery Scan 12/17/23 14:47 Pulse Rate 76 12/17/23 14:47 Respiratory Rate 18 12/17/23 14:47 Blood Pressure 125/78 12/17/23 14:47 Blood Pressure Mean 93 12/17/23 14:47 Blood Pressure Position Sitting 12/17/23 14:47 Pulse Oximetry 99 12/17/23 14:47 Oxygen Delivery Method Room Air 12/17/23 14:47 Vital Signs Temperature 97.9 F 12/17/23 14:47 Pulse Rate 76 12/17/23 14:47 Respiratory Rate 18 12/17/23 14:47 Blood Pressure 125/78 12/17/23 14:47 Pulse Oximetry 99 12/17/23 14:47 Oxygen Delivery Method Room Air 12/17/23 14:47 Temperature 97.9 F 12/17/23 14:47 Pulse Rate 76 12/17/23 14:47 Respiratory Rate 18 12/17/23 14:47 Blood Pressure 125/78 12/17/23 14:47 Pulse Oximetry 99 12/17/23 14:47 Oxygen Delivery Method Room Air 12/17/23 14:47 MDM - Abdominal Pain MDM Narrative Medical decision making narrative: This patient comes in because a triage nurse on the phone said she should come in and may be would need a CT scan. She has had abdominal symptoms in the upper abdomen on and off for a couple years and did see a guest experience captain and has an endoscopy scheduled toward the end of this month. She does state that she has a fair amount of anxiety regarding symptoms this year. These symptoms include some paresthesias and upper abdominal pain. I did discuss lab and imaging options with her and reviewed previous studies that were done. She would like to have a CT scan of her abdomen and pelvis done just to rule out her concerns as she did read on the Internet about various things that triggered even more anxiety. An IV was established and labs are acquired and CT imaging is done. These results of all returned with normal findings. She is sufficiently reassured with these results. She is currently taking a proton pump inhibitor. She does also report some back pain and I indicated that sometimes her abdominal symptoms could also be coming from her back rather than radiating to her back. I did provide a prescription for a Medrol Dosepak. Lab Data Labs: Lab Results 12/17/23 Range/Units 15:36 WBC 6.08 (4.50-11.00) K/uL RBC 4.27 (4.00-5.20) m/uL Hgb 13.2 (12.0-16.0) gm/dL Hct 40.1 (33.0-51.0) % MCV 94 (80-100) fL MCH 31 (26-34) pg MCHC 33 (32-36) gm/dL RDW Coeff of Stefani 11.8 (11.5-15.5) % Plt Count 199 (140-440) K/uL Neut % (Auto) 65.5 (42.0-72.0) % Lymph % (Auto) 26.0 (20-44) % Woodruff % (Auto) 6.3 (0.0-11.0) % Eos % (Auto) 1.5 (0.0-7.0) % Baso % (Auto) 0.5 (0.0-3.0) % Neut # (Auto) 3.99 (1.7-7.0) K/uL Lymph # (Auto) 1.58 (0.90-2.90) K/uL Woodruff # (Auto) 0.40 (0.00-0.90) K/UL Eos # (Auto) 0.09 (0.00-0.50) K/uL Baso # (Auto) 0.03 (0.00-0.30) K/uL Abs Immat Gran (auto) 0.01 (0.00-0.30) K/uL Imm/Tot Granulo (auto) 0.2 % Sodium 137 (135-149) mmol/L Potassium 3.7 (3.6-5.1) mmol/L Chloride 103 (96-114) mmol/L Carbon Dioxide 24 (20-32) mmol/L Anion Gap 10 (7-15) mEq/L BUN 10 (5-24) mg/dL Creatinine 0.9 (0.5-1.5) mg/dL Estimated Creat Clear 87.46 Estimated GFR 82 ml/min Glucose 92 (60-115) mg/dL Calcium 9.4 (8.4-10.6) mg/dL Total Bilirubin 0.7 (0.1-1.5) mg/dL Direct Bilirubin 0.2 (0.0-0.5) mg/dL AST 26 (12-35) U/L ALT 14 (4-35) U/L Alkaline Phosphatase 40 (40-150) U/L Total Protein 7.9 (6.0-8.3) g/dL Albumin 4.9 (3.3-5.0) g/dL Lipase 116 (23-300) U/L Imaging Data CT scan - abdomen: Radiologist's impression: No acute intra-abdominal/pelvic abnormality. Moderate colonic stool burden. Mildly distended bladder with circumferential wall thickening. Recommend correlation with urinalysis for UTI if suspected. Tiny right ovarian cyst with trace free fluid in the pelvis, likely physiologic. Discharge Plan Discharge Clinical Impression: Abdominal pain Additional Instructions: Take medication as prescribed. Follow up with MD as scheduled or return if worsening. Prescriptions: No Action Saccharomyces boulardii [Daily Probiotic (S. boulardii)] 250 mg capsule 250 mg PO BID pantoprazole 40 mg tablet,delayed release (DR/EC) 40 mg PO clindamycin phosphate 1 % lotion topical levonorgestrel-ethinyl estrad 0.15 mg-30 mcg (91) tablets,dose pack,3 month 1 tab PO DAILY Follow Up/Referrals: Hawa Dowling PA-C [Primary Care Provider] -
[2023-12-17 15:41] LABS: Basophils Absolute Auto 0.03 K/uL (0.00-0.30); Basophils Percent Auto 0.5 % (0.0-3.0); Eosinophils Absolute Auto 0.09 K/uL (0.00-0.50); Eosinophils Percent Auto 1.5 % (0.0-7.0); Hematocrit 40.1 % (33.0-51.0); Hemoglobin* 13.2 gm/dL (12.0-16.0); Immature Granulocytes Abs Auto 0.01 K/uL (0.00-0.30); Immature Granulocytes Pct Auto 0.2 %; Lymphocytes Absolute Auto 1.58 K/uL (0.90-2.90); Mean Corpuscular HGB Conc 33 gm/dL (32-36); Mean Corpuscular Hemoglobin 31 pg (26-34); Mean Corpuscular Volume 94 fL (80-100); Monocytes Percent Auto 6.3 % (0.0-11.0); Neutrophils Absolute Auto 3.99 K/uL (1.7-7.0); Neutrophils Percent Auto 65.5 % (42.0-72.0); Platelet Count* 199 K/uL (140-440); RDW Coefficient of Variation % 11.8 % (11.5-15.5); Red Blood Count 4.27 m/uL (4.00-5.20); White Blood Count* 6.08 K/uL (4.50-11.00)
[2023-12-17 15:49] LABS: Slide Review Reflex No
--- OUTSIDE RECORDS SUMMARY | 2023-12-17 15:53 | XMS_ITS | Encounter Summary ---
Author Organization [facility] Address [address] [place] [address]. 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
--- OUTSIDE RECORDS SUMMARY | 2023-12-17 15:53 | XMS_ITS | Clinical Summary ---
Author Organization [facility] Address [address] [place] [address]. [place] [address] Care Team Providers Care Pattern Cutter Name Role Phone [facility], [facility] Primary Care Provider William Fowler DO [...] Department Care Team Description 10/07/[address] [facility] [address] [place] [phone] Scan, Non-Provider from Last 3 Months Immunizations Name Administration Dates Next Due [id number] Novel Flu 04/03/2009 HPV Quadrivalent 08/08/2008,09/21/2007, 8 [...] on file Legal Sex Female 4:28 AM GLASS LAMINATING OPERATOR Gender Identity Not on file Sexual [...] BILATERAL W/ JOSE Routine 04/19/2023 10:07 AM GLASS LAMINATING OPERATOR Visit for screening mammogram LIPID REFLEX TO DIRECT LDL PANEL Routine 03/12/2020 12:03 PM GLASS LAMINATING OPERATOR Routine general medical examination at a [...] BLOOD ORDERABLES Final Res ult [facility] Acute Care Lab [address] Lab (1st floor, no room number) [place] [address], [facility] * [place] Screen with Implants Bilateral w/Jose (04/19/2023 10:07 AM GLASS LAMINATING OPERATOR) Anatomical Region Laterality Modality Breast Bilateral Mammography Impressions 04/19/2023 10:30 AM GLASS LAMINATING OPERATOR IMPRESSION: ACR BI-RADS Category 2: Benign BREAST CANCER SCREENING RECOMMENDATION: Routine yearly mammography beginning at age 40 or as discussed with your provider. The results and recommendations of this examination will be communicated to the patient. Reji Knight MD Narrative 04/19/2023 10:30 AM GLASS LAMINATING OPERATOR BILATERAL FULL FIELD DIGITAL SCREENING MAMMOGRAM [...] to direct LDL Fasting (03/12/2020 12:03 PM GLASS LAMINATING OPERATOR) Cholesterol 149 <200 mg/dL 03/13/2020 11:22 AM GLASS LAMINATING OPERATOR [facility] Triglycerides 63 <150 mg/dL 03/13/2020 11:22 AM GLASS LAMINATING OPERATOR [facility] Comment:Non Fasting HDL Cholesterol 59 >49 mg/dL 11:29 AM GLASS LAMINATING OPERATOR [facility] LDL Cholesterol Calculated 77 <100 mg/dL 03/13/2020 11:29 AM GLASS LAMINATING OPERATOR [facility] Comment:Desirable: <100 mg/d l Non HDL Cholesterol 90 <130 mg/dL 03/13/2020 11:29 AM GLASS LAMINATING OPERATOR [facility] Blood specimen (specimen) 03/12/2020 12:03 PM GLASS LAMINATING OPERATOR 03/12/2020 12:04 PM GLASS LAMINATING OPERATOR us Asha Ashton APRN GRAINING OPERATOR LAB - BLOOD ORDERA BLES Final Result [facility] [address] [place] [address] from Last 3 Months or Most Recently Relevant to Health Maintenance [place] Care Teams Pattern Cutter Relationship Specialty Start Date End Date Clinic, [address] [phone] PCP - General 03/17/22 William Fowler DO [address] [place] [address] Physician Neurology 07/04/23
--- OUTSIDE RECORDS SUMMARY | 2023-12-17 15:53 | XMS_ITS | Clinical Summary ---
Author Organization [facility] Address [place], [place] [address] Care Team Providers Care Pipelayer Name Role Phone Modesto Borjas MD Primary Care Provider +1- [phone] Allergies Active Allergy Reactions Criticality Noted Date [...] Vag Livin g Summer Varun y Delivery Location:[place] Last Filed Vital Signs Vital Sign Reading [...] 12:03 PM CDT Supervision of other normal RAILWAY SWITCHMAN THIN PREP PAP SCREEN IMAGED Routine 08/08/2008 10:11 AM CDT Screening for Malignant Neoplasm of the Cervix from Last 3 Months or Most Recently Relevant to Health Maintenance Results * ANTI HIV 1/2 (06/04/2009 12:03 PM CDT) ANTI HIV 1/2 Non-reacti ve [facility] Blood specimen (specimen) BLOOD SPECIMEN / Unknown 06/04/2009 12:03 PM CDT 06/04/2009 11:49 AM CDT Adelina Worthington MD SEND OUTS [facility]OR[facility] INTERNAL ZIP [address] [address] * RAILWAY SWITCHMAN THIN PREP PAP SCREEN IMAGED (08/08/2008 10:11 AM CDT) CYTOLOGY ??CYTOPATHOLOGY REPORT ??[employer] ?? Status: Final Report ? [id number] ?? CLINICAL INFORMATION ?Date of Last LMP ?: 07/22/08 ?Last Pap Date ? : 07/24/07 ?Last Pap Result ? : NIL ?ABN [place]/Bx Past 5 YRS: None ?Hormone Usage ? : None ?Menstrual Status ?: Regular Periods ?[place]/Bx done today ?: No ?Additional Data ? [...] 08/08/08 ?? ACCESSIONED: 08/08/08 ?? SIGNED: 08/15/08 [facility] PAP BETHESDA CODE NIL [facility] Cervical/Vaginal (Cervical/Vagina l) 08/08/2008 10:11 AM CDT 08/08/2008 10:08 AM CDT Ayana Duggan MD PATHOLOGY/CYT OLOGY [facility] INTERNAL ZIP [address] [address] from Last 3 Months or Most Recently Relevant to Health Maintenance Care Teams Pipelayer Relationship Specialty Start [place] [id number] [address] Carnes [id number] PCP - General Family Practice 10/27/15
--- OUTSIDE RECORDS SUMMARY | 2023-12-17 15:53 | XMS_ITS | Referral Summary ---
Author Organization [facility] Address [address] [place] [address]. [place] [address] Care Team Providers Care Allergist Immunologist Name Role Phone Clinic, 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 Gender Identity Not on file Sexual Orientation [...] BILATERAL W/ JOSE Routine 04/19/2023 10:07 AM TUMBLING BARREL PAINTER Visit for screening mammogram LIPID REFLEX TO DIRECT LDL PANEL Routine 03/12/2020 12:03 PM TUMBLING BARREL PAINTER Routine general medical examination at a health [...] LAB - BLOOD ORDERABLES Final Res ult [facility] Acute Care Lab [address] Lab (1st floor, no room number) [place] [address], [facility] * MA Screen with Implants Bilateral w/Jose (04/19/2023 10:07 AM TUMBLING BARREL PAINTER) Anatomical Region Laterality Modality Breast Bilateral Mammography Impressions 04/19/2023 10:30 AM TUMBLING BARREL PAINTER IMPRESSION: ACR BI-RADS Category 2: Benign BREAST CANCER SCREENING RECOMMENDATION: Routine yearly mammography beginning at age 40 or as discussed with your provider. The results and recommendations of this examination will be communicated to the patient. Reji Knight MD Narrative 04/19/2023 10:30 AM TUMBLING BARREL PAINTER BILATERAL FULL FIELD DIGITAL SCREENING MAMMOGRAM WITH [...] to direct LDL Fasting (03/12/2020 12:03 PM TUMBLING BARREL PAINTER) Cholesterol 149 <200 mg/dL 03/13/2020 11:[address] [facility] Triglycerides 63 <150 mg/dL 03/13/2020 11:22 [address] [facility] Comment:Non Fasting HDL Cholesterol 59 >49 mg/dL 11:29 AM TUM[address]ING [address] [facility] LDL Cholesterol Calculated 77 <100 mg/dL 03/13/2020 11:29 AM TUMBLING [address] [facility] Comment:Desirable: <100 mg/d l Non HDL Cholesterol 90 <130 mg/dL 03/13/2020 11:29 [address] [facility] Blood specimen (specimen) 03/12/2020 12:03 PM TUMBLING BARREL PAINTER 03/12/2020 12:04 PM TUMBLING BARREL PAINTER Ashaerick Henderson Poli CONSTRUCTION CHECKER HEEL CUTTER LAB - BLOOD ORDERA BLES Final Result [facility] [address] [place] [address] from Last 3 Months or Most Recently Relevant to Health Maintenance [place] Care Teams Allergist Immunologist Relationship Specialty Start Date End Date [facility], [address] [phone] PCP - General 03/17/22 William Fowler DO [address] [place] [address] Physician Neurology 07/04/23
[2023-12-17 15:54] LABS: Albumin* 4.9 g/dL (3.3-5.0); Chloride* 103 mmol/L (96-114)
[2023-12-17 15:55] LABS: Potassium* 3.7 mmol/L (3.6-5.1); Sodium* 137 mmol/L (135-149)
[2023-12-17 15:57] LABS: Alkaline Phosphatase* 40 U/L (40-150); Anion Gap 10 mEq/L (7-15); Aspartate Amino Transferase* 26 U/L (12-35); Bilirubin Direct* 0.2 mg/dL (0.0-0.5); Bilirubin Total* 0.7 mg/dL (0.1-1.5); Blood Urea Nitrogen* 10 mg/dL (5-24); Carbon Dioxide* 24 mmol/L (20-32); Creatinine* 0.9 mg/dL (0.5-1.5); Est. Creatinine Clearance* 87.46; Estimated Glomerular Filt Rate 82 ml/min; Glucose* 92 mg/dL (60-115); Total Protein* 7.9 g/dL (6.0-8.3)
[2023-12-17 15:58] LABS: Alanine Aminotransferase* 14 U/L (4-35); Calcium* 9.4 mg/dL (8.4-10.6); Lipase* 116 U/L (23-300)
[2023-12-17 17:13] VITALS: BP 105/69; PULSE 64; RESP 16; O2SAT 99
== END 2023-12-17 17:17 | disposition home or self-care (01) ==
PROVIDERS: Emergency Provider Emergency Medicine Emergency Medical Services; PCP Physician Assistant Medical
DX: R10.9 Unspecified abdominal pain (principal)
CPT/HCPCS: 36415; 74177; 80048; 80076; 83690; 85025; 99284; 99285; Q9967

== ENCOUNTER 2023-12-27 11:39 | Outpatient (CLI) | payer BC, SELFPAY ==
--- OUTSIDE RECORDS SUMMARY | 2023-12-27 11:42 | XMS_ITS | Referral Summary ---
Author Organization [facility] Address [address] [place] [address]. 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 BOAT 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 Gender Identity Not on file Sexual Orientation [...] - HIM SCAN 10/11/2023 12:00 AM CDT BASIC METABOLIC PANEL STAT 04/29/2023 2:58 PM CDT MA SCREENING WITH IMPLANTS BILATERAL W/ JOSE Routine 04/19/2023 10:07 AM DERRICK BOAT CAPTAIN Visit for screening mammogram LIPID REFLEX TO DIRECT LDL PANEL Routine 03/12/2020 12:03 PM DERRICK BOAT CAPTAIN Routine general medical examination at a health care facility from Last 3 Months or Most Recently Relevant to Health Maintenance Results * MRI Imaging - HIM Scan (10/11/2023 12:00 AM CDT) Anatomical Region Laterality Modality Other 10/11/2023 us Provider Outside IMG MRI ORDERABLES Final Result * Basic metabolic panel (BMP) (04/29/2023 2:58 [...] BLOOD ORDERABLES Final Res ult [facility] Acute Care Lab [address] Lab (1st floor, no room number) [place] [address], [facility] * MA Screen with Implants Bilateral w/Jose (04/19/2023 10:07 AM DERRICK BOAT CAPTAIN) Anatomical Region Laterality Modality Breast Bilateral Mammography Impressions 04/19/2023 10:30 AM DERRICK BOAT CAPTAIN IMPRESSION: ACR BI-RADS Category 2: Benign BREAST CANCER SCREENING RECOMMENDATION: Routine yearly mammography beginning at age 40 or as discussed with your provider. The results and recommendations of this examination will be communicated to the patient. Reji Knight MD Narrative 04/19/2023 10:30 AM DERRICK BOAT CAPTAIN BILATERAL FULL FIELD DIGITAL SCREENING MAMMOGRAM WITH [...] to direct LDL Fasting (03/12/2020 12:03 PM DERRICK BOAT CAPTAIN) Cholesterol 149 <200 mg/dL 03/13/2020 11:22 AM DERRICK BOAT CAPTAIN [facility] Triglycerides 63 <150 mg/dL 03/13/2020 11:22 AM DERRICK BOAT CAPTAIN [facility] Comment:Non Fasting HDL Cholesterol 59 >49 mg/dL 11:29 AM DERRICK BOAT CAPTAIN [facility] LDL Cholesterol Calculated 77 <100 mg/dL 03/13/2020 11:29 AM DERRICK BOAT CAPTAIN [facility] Comment:Desirable: <100 mg/d l Non HDL Cholesterol 90 <130 mg/dL 03/13/2020 11:29 AM DERRICK BOAT CAPTAIN [facility] Blood specimen (specimen) 03/12/2020 12:03 PM DERRICK BOAT CAPTAIN 03/12/2020 12:04 PM DERRICK BOAT CAPTAIN us Asha Ashton APRN HAND ORNAMENT MAKER LAB - BLOOD ORDERA BLES Final Result [facility] [address] [place] [address] from Last 3 Months or Most Recently Relevant to Health Maintenance [place] Care Teams Housekeeper Child Care Relationship Specialty Start Date End Date Clinic, [address] [phone] PCP - General 03/17/22 William Fowler DO [address] [place] [address] Physician Neurology 07/04/23
--- OUTSIDE RECORDS SUMMARY | 2023-12-27 11:42 | XMS_ITS | Encounter Summary ---
Author Organization [facility] Address [address] [place] [address]. [place] [address] Care Team Providers Care Revenue Cycle Specialist Name Role Phone 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
--- OUTSIDE RECORDS SUMMARY | 2023-12-27 11:42 | XMS_ITS | Clinical Summary ---
Author Organization [facility] Address [address] [place] [address]. [place] [address] Care Team Providers Care Customer Relations Assistant Name Role Phone [facility], 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 Gender Identity Not on file Sexual Orientation [...] LIPID 03/12/2025 03/12/2020 MAMMO SCREENING 04/18/2025 04/19/2023, 0304/2022, 01/19/2017 GLUCOSE 04/28/2026 04/29/2023, 02/0 02/2022, 03/12/2020 [...] BILATERAL W/ JOSE Routine 04/19/2023 10:07 AM SLIPPER MAKER Visit for screening mammogram LIPID REFLEX TO DIRECT LDL PANEL Routine 03/12/2020 12:03 PM SLIPPER MAKER Routine general medical examination at a health [...] LAB - BLOOD ORDERABLES Final Res ult LABORATORY [facility] Acute Care Lab [address] Lab (1st floor, no room number) [place] [address], [facility] * MA Screen with Implants Bilateral w/Jose (04/19/2023 10:07 AM SLIPPER MAKER) Anatomical Region Laterality Modality Breast Bilateral Mammography Impressions 04/19/2023 10:30 AM SLIPPER MAKER IMPRESSION: ACR BI-RADS Category 2: Benign BREAST CANCER SCREENING RECOMMENDATION: Routine yearly mammography beginning at age 40 or as discussed with your provider. The results and recommendations of this examination will be communicated to the patient. Reji Knight MD Narrative 04/19/2023 10:30 AM SLIPPER MAKER BILATERAL FULL FIELD DIGITAL SCREENING MAMMOGRAM WITH [...] to direct LDL Fasting (03/12/2020 12:03 PM SLIPPER MAKER) Cholesterol 149 <200 mg/dL 03/13/2020 11:22 AM SLIPPER MAKER [facility] Triglycerides 63 <150 mg/dL 03/13/2020 11:22 AM SLIPPER MAKER [facility] Comment:Non Fasting HDL Cholesterol 59 >49 mg/dL 11:29 AM SLIPPER MAKER [facility] LDL Cholesterol Calculated 77 <100 mg/dL 03/13/2020 11:29 AM SLIPPER MAKER [facility] Comment:Desirable: <100 mg/d l Non HDL Cholesterol 90 <130 mg/dL 03/13/2020 11:29 AM SLIPPER MAKER [facility] Blood specimen (specimen) 03/12/2020 12:03 PM SLIPPER MAKER 03/12/2020 12:04 PM SLIPPER MAKER us Asha Ashton CARE REP LEVELMAN LAB - BLOOD ORDERA BLES Final Result [facility] [address] [place] [address] from Last 3 Months or Most Recently Relevant to Health Maintenance [place] Care Teams Customer Relations Assistant Relationship Specialty Start Date End Date Clinic, [address] [address] PCP - General 03/17/22 William Fowler DO [address] [place] [address] Physician Neurology 07/04/23
--- OUTSIDE RECORDS SUMMARY | 2023-12-27 11:42 | XMS_ITS | Clinical Summary ---
Author Organization [facility] Address [place], [place] [address] Care Team Providers Care Procurement Assistant Name Role Phone Modesto Borjas MD Primary Care Provider [phone] Allergies Active Allergy Reactions Criticality Noted Date [...] Vag Livin g Summer Varun y Delivery Location:[place] Last Filed Vital Signs Vital Sign Reading [...] 12:03 PM CDT Supervision of other normal PAPER HANGER THIN PREP PAP SCREEN IMAGED Routine 08/08/2008 10:11 AM CDT Screening for Malignant Neoplasm of the Cervix from Last 3 Months or Most Recently Relevant to Health Maintenance Results * ANTI HIV 1/2 (06/04/2009 12:03 PM CDT) ANTI HIV 1/2 Non-reacti ve [facility] Blood specimen (specimen) BLOOD SPECIMEN / Unknown 06/04/2009 12:03 PM CDT 06/04/2009 11:49 AM CDT Adelina Worthington MD SEND OUTS [facility] LABORATORY INTERNAL ZIP [id number] [address] * PAPER HANGER THIN PREP PAP SCREEN IMAGED (08/08/2008 10:11 AM CDT) CYTOLOGY ??CYTOPATHOLOGY REPORT ??[facility] ?? Status: Final Report ? [id number] ?? CLINICAL INFORMATION ?Date of Last LMP ?: 07/22/08 ?Last Pap Date ? : 07/24/07 ?Last Pap Result ? : NIL ?ABN [place]/Bx Past 5 YRS: None ?Hormone Usage ? : None ?Menstrual Status ?: Regular Periods ?[place]/Bx done today ?: No ?Additional Data ? [...] 08/08/08 ?? ACCESSIONED: 08/08/08 ?? SIGNED: 08/15/08 [facility] PAP [place] CODE NIL [facility] Cervical/Vaginal (Cervical/Vagina l) 08/08/2008 10:11 AM CDT 08/08/2008 10:08 AM CDT Ayana Duggan MD PATHOLOGY/CYT OLOGY [facility] LABOR[facility] INTERNAL ZIP [address] [address] from Last 3 Months or Most Recently Relevant to Health Maintenance Care Teams Procurement Assistant Relationship Specialty [place] [id number] [address] [phone] PCP - General Family Practice 10/27/15
== END 2023-12-27 11:40 | disposition home or self-care (01) ==
PROVIDERS: PCP Physician Assistant Medical; Visit Provider Family Medicine
DX: R79.0 Abnormal level of blood mineral (principal); R50.9 Fever, unspecified; R25.3 Fasciculation
CPT/HCPCS: 82306; 82607; 82728; 87086

== ENCOUNTER 2024-02-22 10:07 | Outpatient (CLI) | payer BC, SELFPAY ==
--- NOTE | 2024-02-22 10:15 | CRLHL7_ITS ---
For Patients: As a result of the Century Cures Act, medical imaging exams and procedure reports are released immediately into your electronic medical record. You may view this report before your referring provider. If you have questions, please contact your health care provider. Technique: Double-contrast esophagram performed after the uneventful administration of effervescent crystals and thick barium followed by thin barium. Barium tablet also administered. Fluoroscopy time 0.52 minutes. Indication: dysphagia, celiac disease, heartburn, belching, abdominal bloating Comparison: None. Findings: Esophagus: Normal morphology and motility. No stricture or mass. Barium tablet swallowed normally. Gastroesophageal reflux: None. Impression: Normal double-contrast esophagram. Dictated by Beniot Hutcihnson MD @ 02/22/2024 12:58:49 PM (Electronically Signed)
== END 2024-02-22 10:08 | disposition home or self-care (01) ==
LOC: RAD 10:08
PROVIDERS: PCP Physician Assistant Medical
DX: R13.10 Dysphagia, unspecified (principal); R14.3 Flatulence; K90.0 Celiac disease
CPT/HCPCS: 74221

== ENCOUNTER 2024-06-19 18:43 | Emergency (ER) | payer BC, SELFPAY ==
--- OUTSIDE RECORDS SUMMARY | 2024-06-19 18:45 | XMS_ITS | Encounter Summary ---
Author Organization [facility] Address [address] [place] [address] Care Team Providers Care Dental Laboratory Technology Teacher Name Role Phone William Fowler DO Unavailable + Darrian Garrison MD Unavailable Hawa Dowling PA-C Primary Care Provider [phone] Darrian Garrison MD Unavailable Encounter Details Date Type Department Care Team (Latest Contact Info) Description 06/05/2024 Travel Social History Tobacco Use Types Packs/Day Years Used Date Smoking Tobacco: Never Smokeless Tobacco: Never Alcohol Use Standard Drinks/Week Comments Yes 0 (1 standard drink = 0.6 oz pur e alcohol) occ. 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 Gender Identity Not on file Sexual Orientation Not on file documented as of this encounter Plan of Treatment Not on file documented as of this encounter Visit Diagnoses Not on filedocumented in this encounter Care Teams Dental Laboratory Technology Teacher Relationship Specialty Start Date End Date Hawa Dowling PA-C [address] [place] [address] PCP - General 03/27/24 William Fowler DO [address] [place] [address] Physician Neurology 07/04/23 Darrian Garrison MD [address] [place] [address] Physician Interventional Cardiology 03/26/24 Darrian Garrison MD [address] [place] [address] Assigned Heart and Vascular Provider 04/08/24 documented as of this encounter
--- OUTSIDE RECORDS SUMMARY | 2024-06-19 18:45 | XMS_ITS | Patient Health Record ---
Author Organization [facility] Address [address] [address] Care Team Providers Care Transportation Engineering Technician Name Role Phone Bulmaro Suggs [facility] [phone] Reason For Referral No Information Encounters Encounter Location Date Provider Diagnosis [facility] [address] [facility] [address] [place] [address] 06/30/2023 Bulmaro Suggs Plan Of Treatment No Information
--- OUTSIDE RECORDS SUMMARY | 2024-06-19 18:45 | XMS_ITS | Encounter Summary ---
Author Organization [facility] Address [address] [place] [address] Care Team Providers Care Associate Director Data & Analytics Name Role Phone Farhan Fowlerony Lewis CHADWICK Unavailable + Darrian Garrison MD Unavailable Hawa Dowling PA-C Primary Care Provider [phone] Darrian Garrison MD Unavailable Reason for Visit * Reason Comments Abdominal Pain Encounter Details Date Type Department Care Team (Late st Contact Info) Description 06/05/2024 2:10 PM CDT - 06/05/2024 4:58 PM CDT Emergency [facility] Emergency Dept [address] [place] [id number] Erwin Muniz MD [address] [place], [place] [id number] Epigastric pain Discharge Disposition: Home or Self Care Social [...] on file 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 Gender Identity Not on file Sexual Orientation Not on file documented as of this encounter Last Filed Vital Signs Vital Sign Reading Time Taken Comments Blood Pressure 118/88 06/05/2024 4:57 PM CDT Pulse 88 06/05/2024 4:57 PM CDT Temperature 36.9 C (98.4 F) 06/05/2024 1:12 PM CDT Respiratory Rate 116 06/05/2024 4:57 PM CDT Oxygen Saturation 98% 06/05/2024 4:57 PM CDT Inhaled Oxygen Concentration - - Weight 71.2 kg (156 lb 15.5 oz) 06/05/2024 1:12 PM CDT Height 177.8 cm (5' 10) 06/05/2024 1:12 PM CDT Body Mass Index 22.52 06/05/2024 1:12 PM CDT documented in this encounter Discharge Instructions * Discharge Instructions* Erwin Muniz MD - 06/05/2024 4:32 PM CDT Return to the ER for new or worsening pain Please contact your public information relations manager to arrange a repeat endoscopy in the next month. Omeprazole and Protonix are from the same class of medications. From our conversation it seems mostlikely that you are using Pepcid (famotidine). You should be taking 20 mg of Pepcid twice daily along with either omeprazole or Protonix once daily. * Attachments The following attachments cannot be sent through Care Everywhere. * Dyspepsia (Armenian) documented in this encounter Medications at Time of Discharge hydrOXYzine (ATARAX) 25 MG tablet Take 1 tablet (25 mg) by mouth 3 times daily as needed for anxiety 30 tablet 03/17/2022 omeprazole (PRILOSEC) [address] capsule Take 1 capsule (20 mg) by mouth daily. 30 capsule 06/05/2024 07/05/2024 documented as of this encounter ED Notes * Erwin Muniz MD - 06/05/2024 2:23 PM CDT Emergency Department Note History of Present Illness Chief Complaint Abdominal Pain HPI Anh Calderon is a 43 year old female who presents to the ED for evaluation of upper abdominal painmost prominent on the left side. She does have a history of a prior cholecystectomy little over a year ago. She says she has followed with gastroenterology and was diagnosed with celiac disease by biopsy and endoscopy. She avoids gluten but is not on any other specific treatment. She also was found to have gastritis. She tried which she believes was omeprazole without significant relief of her symptoms. She stopped that and says she believes she is on Pepcid twice daily now. Over the last 2 to 3 months patient has had progressive upper abdominal pain. It is most often present after meals although not consistently provoked by certain type of meal. She notes a gassy sensation and belching with acid reflux in her throat. She has not been known to have peptic ulcer disease specifically. Review of External Notes Prior notes reviewed from April 29, 2023 when the patient had a CT scan showing questionable abnormality of the gallbladder. The patient says she followed up with an ultrasound and ended up having a cholecystectomy last year. Past Medical History Medical History and Problem List GERD Medications Pepcid twice daily Surgical History Cholecystectomy Physical Exam Patient Vitals for the past 24 hrs: BP Temp Temp src Pulse Resp SpO2 Height Weight 06/05/24 1657 118/88 -- -- 88 (!) 116 98 % -- -- 06/05/24 1312 117/79 98.4 ??F (36.9 ??C) Oral 89 16 98 % 1.778 m (5' 10) 71.2 kg (156 lb 15.5 oz) Physical Exam Constitutional: General: She is not in acute distress. Appearance: Normal appearance. She is not diaphoretic. HENT: Head: Atraumatic. Mouth/Throat: Mouth: Mucous membranes are moist. Eyes: General: No scleral icterus. Conjunctiva/sclera: Conjunctivae normal. Cardiovascular: Rate and Rhythm: Normal rate and regular rhythm. Heart sounds: Normal heart sounds. Pulmonary: Effort: No respiratory distress. Breath sounds: Normal breath sounds. Abdominal: General: Abdomen is flat. Comments: Mild epigastric tenderness. No guarding or rebound. No palpable mass Musculoskeletal: Cervical back: Neck supple. Right lower leg: No edema. Left lower leg: No edema. Skin: General: Skin is warm. Capillary Refill: Capillary refill takes less than 2 seconds. Findings: No rash. Neurological: General: No focal deficit present. Mental Status: She is alert and oriented to person, place, and time. Psychiatric: Mood and Affect: Mood normal. Behavior: Behavior normal. Diagnostics Lab Results Labs Ordered and Resulted from Time of ED Arrival to Time of ED Departure ROUTINE UA WITH MICROSCOPIC REFLEX TO CULTURE - Abnormal Result Value Color Urine Straw Appearance Urine Clear Glucose Urine Negative Bilirubin Urine Negative Ketones Urine Negative Specific [place] Urine 1.003 Blood Urine Negative pH Urine 5.5 Protein Albumin Urine Negative Urobilinogen Urine Normal Nitrite Urine Negative Leukocyte Esterase Urine Negative Bacteria Urine Few (*) RBC Urine <1 WBC Urine 1 Squamous Epithelials Urine 5 (*) HCG QUALITATIVE URINE - Normal hCG Urine Qualitative Negative COMPREHENSIVE METABOLIC PANEL - Normal Sodium 137 Potassium 4.4 Carbon Dioxide (CO2) 24 Anion Gap 11 Urea Nitrogen 10.9 Creatinine 0.82 GFR Estimate >90 Calcium 9.3 Chloride 102 Glucose 93 Alkaline Phosphatase 56 AST 23 ALT 16 Protein Total 6.8 Albumin 4.4 Bilirubin Total 0.6 LIPASE - Normal Lipase 32 CBC WITH PLATELETS AND DIFFERENTIAL WBC Count 7.1 RBC Count 4.03 Hemoglobin 12.5 Hematocrit 37.6 MCV 93 MCH 31.0 MCHC 33.2 RDW 12.5 Platelet Count 223 % Neutrophils 74 % Lymphocytes 19 % Monocytes 5 % Eosinophils 1 % Basophils 0 % Immature Granulocytes 0 NRBCs per 100 WBC 0 Absolute Neutrophils 5.3 Absolute Lymphocytes 1.4 Absolute Monocytes 0.3 Absolute Eosinophils 0.1 Absolute Basophils 0.0 Absolute Immature Granulocytes 0.0 Absolute NRBCs 0.[address] Abdomen Pelvis w Contrast Final Result IMPRESSION: 1. Mild bladder wall thickening and surrounding edema which may reflect cystitis. 2. No acute abdominal findings. No hydronephrosis, bowel obstruction or intra- abdominal inflammatory process. EKG ECG results from 06/05/24 EKG 12 lead Value Systolic Blood Pressure Diastolic Blood Pressure Ventricular Rate 78 Atrial Rate 78 RI Interval 164 QRS Duration 74 QT 362 QTc 412 P Stirum 73 R AXIS 69 T Stirum 57 Interpretation ECG Sinus rhythm Normal ECG When compared with ECG of 29-Apr-2023 15:37, No significant change was found ED Course Medications Administered Medications alum & mag hydroxide-simethicone (MAALOX) suspension 15 mL (15 mLs Oral $Given 06/05/24 8704) lidocaine (viscous) (XYLOCAINE) 2 % solution 5 mL (5 mLs Mouth/Throat $Given 06/05/24 1435) iopamidol (ISOVUE-370) solution 500 mL (79 mLs Intravenous $Given 06/05/24 1554) sodium chloride 0.9 % bag for CT scan flush (60 mLs Intravenous $Given 06/05/24 1554) Medical Decision Making / Diagnosis AYAKA Calderon is a 43 year old female with a history of GERD who presents to the ED with what she describes as a progressive, gnawing, upper abdominal pain over the last 6 months since she had her endoscopy. She has made dietary modifications related to celiac disease. She most likely has peptic ulcer disease. This would fit the description of her pain. She will continue Pepcid. She will start a PPI again for dual therapy. She was advised to follow with gastroenterology for repeat endoscopy within the next month. We discussed further dietary modifications. Workup is not consistent with hepatitis or pancreatitis. The patient says she rarely drinks alcohol. CT scan without evidence of biliary obstruction. No evidence of ureteral stone, appendicitis, or small bowel obstruction. No evidence of pyonephritis. The CT scan did demonstrate some inflammation around the bladder although the patient does not have any pain in this area. This could be related to the degree of distention of her bladder. We will send a urine culture. She will follow through herprimary care clinic. The patient is appropriate discharge. Questions were answered. Disposition The patient was discharged. Diagnosis ICD-10-CM 1. Epigastric pain R10.13 Discharge Medications Discharge Medication List as of 06/05/2024 4:49 PM START taking these medications Details omeprazole (PRILOSEC) [address] capsule Take 1 capsule (20 mg) by mouth daily., Disp-30 capsule, R-0, E-Prescribe Erwin Muniz MD 06/05/24 1701 * Alexandrea Tolbert RN - 06/05/2024 1:09 PM CDT Pt presents with intermittent epigastric pain that radiates into her back and left shoulder. Deniesn/v/d. Pain is worse with eating. Pain has been coming and going over the past 6 months but is moreconstant and higher severity recently prompting visit to the ED. documented in this encounter Plan of Treatment Not on file documented as of this encounter Procedures Procedure Name Priority Date/Time Associated Diagnosis Comments CT ABDOMEN PELVIS W CONTRAST STAT 06/05/2024 3:57 PM CDT CBC WITH PLATELETS AND DIFFERENTIAL STAT 06/05/2024 2:30 PM CDT CBC WITH PLATELETS & DIFFERENTIAL STAT 06/05/2024 2:30 PM CDT LIPASE STAT 06/05/2024 2:30 PM CDT COMPREHENSIVE METABOLIC PANEL STAT 06/05/2024 2:30 PM CDT HCG QUALITATIVE URINE STAT 06/05/2024 2:16 PM CDT ROUTINE UA WITH MICROSCOPIC REFLEX TO CULTURE STAT 06/05/2024 2:16 PM CDT URINE CULTURE Add-On 06/05/2024 2:16 PM CDT EKG 12-LEAD, TRACING ONLY STAT 06/05/2024 1:47 PM CDT documented in this encounter Results * CT Abdomen Pelvis w Contrast (06/05/2024 3:57 PM CDT) Anatomical Region Laterality Modality Abdomen/Pelvis, SUBRAD CT SOCRATES DY, UMP CT ABDOMEN PELVIS, RAD CT Computed Tomography 06/05/2024 3:57 PM CDT Impressions 06/05/2024 4:22 PM CDT IMPRESSION: 1. Mild bladder wall thickening and surrounding edema which may reflect cystitis. 2. No acute abdominal findings. No hydronephrosis, bowel obstruction or intra- abdominal inflammatory process. Narrative 06/05/2024 4:22 PM CDT EXAM: CT ABDOMEN PELVIS W CONTRAST LOCATION: [facility] DATE: 06/05/2024 INDICATION: Abdominal pain COMPARISON: CT 04/29/2023 TECHNIQUE: CT scan of the abdomen and pelvis was performed following injection of IV contrast. Multiplanar reformats were obtained. Dose reduction techniques were used. CONTRAST: 79mL Isovue 370 FINDINGS: LOWER CHEST: Bilateral partially visualized breast implants. HEPATOBILIARY: Cholecystectomy. Normal liver and bile ducts. PANCREAS: Normal. SPLEEN: Normal. ADRENAL GLANDS: Normal. KIDNEYS/BLADDER: Bilateral renal cysts. No follow-up is indicated. 1 mm upper left renal calculus. No adjacent No hydronephrosis, hydroureter or obstructing ureteral stone. Mild bladder wall thickening with surrounding edema. BOWEL: No bowel obstruction or inflammatory process. Nonvisualized appendix. No secondary signs of appendicitis. No free air or free fluid. LYMPH NODES: Normal. VASCULATURE: Normal. PELVIC ORGANS: 2.3 cm dominant left ovarian follicle. Multiple small right ovarian follicles. Prominent endometrium which is within normal limits for a premenopausal patient. No pelvic free fluid. MUSCULOSKELETAL: Small fat-containing umbilical hernia. Procedure Note Adrian Peguero MD - 06/05/2024 EXAM: CT ABDOMEN PELVIS W CONTRAST LOCATION: [facility] DATE: 06/05/2024 INDICATION: Abdominal pain COMPARISON: CT 04/29/2023 TECHNIQUE: CT scan of the abdomen and pelvis was performed followinginjection of IV contrast. Multiplanar reformats were obtained. Dosereduction techniques were used. CONTRAST: 79mL Isovue 370 FINDINGS: LOWER CHEST: Bilateral partially visualized breast implants. HEPATOBILIARY: Cholecystectomy. Normal liver and bile ducts. PANCREAS: Normal. SPLEEN: Normal. ADRENAL GLANDS: Normal. KIDNEYS/BLADDER: Bilateral renal cysts. No follow-up is indicated. 1 mmupper left renal calculus. No adjacent No hydronephrosis, hydroureter orobstructing ureteral stone. Mild bladder wall thickening with surroundingedema. BOWEL: No bowel obstruction or inflammatory process. Nonvisualizedappendix. No secondary signs of appendicitis. No free air or free fluid. LYMPH NODES: Normal. VASCULATURE: Normal. PELVIC ORGANS: 2.3 cm dominant left ovarian follicle. Multiple small rightovarian follicles. Prominent endometrium which is within normal limits fora premenopausal patient. No pelvic free fluid. MUSCULOSKELETAL: Small fat-containing umbilical hernia. IMPRESSION: 1. Mild bladder wall thickening and surrounding edema which may reflectcystitis. 2. No acute abdominal findings. No hydronephrosis, bowel obstruction orintra-abdominal inflammatory process. us Erwin Muniz MD IMG CT ORDERABLES Final Result * CBC with platelets and differential (06/05/2024 2:30 PM CDT) WBC Count 7.1 4.0 - 11.0 10e3/uL 06/05/2024 2:42 PM CDT [facility] RBC Count 4.03 3.80 - 5.20 10e6/uL 06/05/2024 2:42 PM CDT [facility] Hemoglobin 12.5 11.7 - 15.7 g/dL 06/05/2024 2:42 PM CDT [facility] Hematocrit 37.6 35.0 - 47.0 % 06/05/2024 2:42 PM CDT [facility] MCV 93 78 - 100 fL 06/05/2024 2:42 PM CDT [facility] MCH 31.0 26.5 - 33.0 pg 06/05/2024 2:42 PM CDT [facility] MCHC 33.2 31.5 - 36.5 g/dL 06/05/2024 2:42 PM CDT [facility] RDW 12.5 10.0 - 15.0 % 06/05/2024 2:42 PM CDT [facility] Platelet Count 223 150 - 450 10e3/uL 06/05/2024 2:42 PM CDT [facility] % Neutrophils 74 % 06/05/2024 2:42 PM CDT [facility] % Lymphocytes 19 % 06/05/2024 2:42 PM CDT [facility] % Monocytes 5 % 06/05/2024 2:42 PM CDT [facility] % Eosinophils 1 % 06/05/2024 2:42 PM CDT [facility] % Basophils 0 % 06/05/2024 2:42 PM CDT [facility] % Immature Granulocytes 0 % 06/05/2024 2:42 PM CDT [facility] NRBCs per 100 WBC 0 <1 /100 025 2:42 PM CDT [facility] Absolute Neutrophils 5.3 1.6 - 8.3 10e3/uL 06/05/2024 2:42 PM CDT [facility] Absolute Lymphocytes 1.4 0.8 - 5.3 10e3/uL 06/05/2024 2:42 PM CDT [facility] Absolute Monocytes 0.3 0.0 - 1.3 10e3/uL 06/05/2024 2:42 PM CDT [facility] Absolute Eosinophils 0.1 0.0 - 0.7 10e3/uL 06/05/2024 2:42 PM CDT [facility] Absolute Basophils 0.0 0.0 - 0.2 10e3/uL 06/05/2024 2:42 PM CDT [facility] Absolute Immature Granulocytes 0.0 <=0.4 10e3/uL 06/05/2024 2:42 PM CDT [facility] Absolute NRBCs 0.0 10e3/uL 06/05/2024 2:42 PM CDT [facility] Blood BLOOD SPECIMEN / Unknown Venipuncture / Unknown 06/05/2024 2:30 PM CDT 06/05/2024 2:39 PM CDT Erwin Muniz MD LAB - BLOOD ORDERABLES Final Result [facility] Lab [address] Lab (1st floor, no room number) [address] * Lipase (06/05/2024 2:30 PM CDT) Lipase 32 13 - 60 U/L 06/05/2024 3:02 PM CDT LABORATORY Blood BLOOD SPECIMEN / Unknown Venipuncture / Unknown 06/05/2024 2:30 PM CDT 06/05/2024 2:39 PM CDT Erwin Muniz MD LAB - BLOOD ORDERABLES Final Result [facility] [address] Lab (1st floor, no room number) [place] [phone] [place] [address] * Comprehensive metabolic panel (06/05/2024 2:30 PM CDT) Sodium 137 135 - 145 mmol/L 06/05/2024 3:02 PM CDT [facility] Potassium 4.4 3.4 - 5.3 mmol/L 06/05/2024 3:02 PM CDT [facility] Carbon Dioxide (CO2) 24 22 - 29 mmol/L 06/05/2024 3:02 PM CDT [facility] Anion Gap 11 7 - 15 mmol/L 06/05/2024 3:02 PM CDT [facility] Urea Nitrogen 10.9 6.0 - 20.0 mg/dL 06/05/2024 3:02 PM CDT [facility] Creatinine 0.82 0.51 - 0.95 mg/dL 06/05/2024 3:02 PM CDT [facility] GFR Estimate >90 >60 mL/min/1.7 3m2 06/05/2024 3:02 PM CDT [facility] Comment:eGFR calculated us2020 CKD-EPI equation. Calcium 9.3 8.8 - 10.4 mg/dL 06/05/2024 3:02 PM CDT [facility] Chloride 102 98 - 107 mmol/L 06/05/2024 3:02 PM CDT [facility] Glucose 93 70 - 99 mg/dL 06/05/2024 3:02 PM CDT [facility] Alkaline Phosphatase 56 40 - 150 U/L 06/05/2024 3:02 PM CDT [facility] AST 23 0 - 45 U/L 06/05/2024 3:02 PM CDT [facility] ALT 16 0 - 50 U/L 06/05/2024 3:02 PM CDT [facility] Protein Total 6.8 6.4 - 8.3 g/dL 06/05/2024 3:02 PM CDT [facility] Albumin 4.4 3.5 - 5.2 g/dL 06/05/2024 3:02 PM CDT [facility] Bilirubin Total 0.6 <=1.2 mg/dL 06/05/2024 3:02 PM CDT [facility] Blood BLOOD SPECIMEN / Unknown Venipuncture / Unknown 06/05/2024 2:30 PM CDT 06/05/2024 2:39 PM CDT Erwin Muniz MD LAB - BLOOD ORDERABLES Final Result [facility] [address] Lab (1st floor, no room number) [place] [address], [facility] * Urine Culture (06/05/2024 2:16 PM CDT) Culture No Growth 06/07/2024 4:40 AM CDT [facility] Urine URINE SPECIMEN OBTAINED BY CLEAN CATCH PROCEDURE / Unknown Non-blood Collection / Unknown 06/05/2024 2:16 PM CDT 06/05/2024 2:24 PM CDT us Erwin Muniz MD LAB - MICRO GENERAL ORD ERABLES Final Result [facility] Lab [address] [facility], [address] [place] [address], [facility] * (ABNORMAL) UA with Microscopic reflex to Culture (06/05/2024 2:16 PM CDT) Color Urine Straw Colorless, Straw, Light Yellow, Yellow 06/05/2024 2:44 PM CDT LABORATORY Appearance Urine Clear Clear 06/06/19 2:44 PM CDT LABORATORY Glucose Urine Negative Negative mg/dL 06/05/2024 2:44 PM CDT LABORATORY Bilirubin Urine Negative Negative 2:44 PM CDT LABORATORY Ketones Urine Negative Negative mg/dL 06/05/2024 2:44 PM CDT LABORATORY Specific [place] Urine 1.003 1.003 - 1.035 06/05/2024 2:44 PM CDT [facility] Blood Urine Negative Negative 06/05/2024 2:44 PM CDT LABORATORY pH Urine 5.5 5.0 - 7.0 06/05/2024 2:44 PM CDT LABORATORY Protein Albumin Urine Negative Negative mg/dL 06/05/2024 2:44 PM CDT LABORATORY Urobilinogen Urine Normal Normal mg/dL 06/05/2024 2:44 PM CDT [facility] Nitrite Urine Negative Negative 06/05/2024 2:44 PM CDT LABORATORY Leukocyte Esterase Urine Negative Negative 06/05/2024 2:44 PM CDT [facility] Bacteria Urine Few(A) None Seen /HPF 06/05/2024 2:44 PM CDT [facility] RBC Urine <1 <=2 /HPF 06/05/2024 2:44 PM CDT [facility] WBC Urine 1 <=5 /HPF 06/05/2024 2:44 PM CDT [facility] Squamous Epithelials Urine 5(H) <=1 /HPF 06/05/2024 2:44 PM CDT [facility] Urine URINE SPECIMEN OBTAINED BY CLEAN CATCH PROCEDURE / Unknown Non-blood Collection / Unknown 06/05/2024 2:16 PM CDT 06/05/2024 2:24 PM CDT Narrative [facility] - 06/05/2024 2:44 PM CDT Urine Culture not indicated Erwin Muniz MD LAB - URINE ORDERABLES Final Result Performing Organization Address City/[facility]/ZIP Co de Phone Number [facility] [address] Lab (1st floor, no room number) [place] [phone] [place] [address] * HCG qualitative urine (06/05/2024 2:16 PM CDT) hCG Urine Qualitative Negative Negative MYRA 06/05/2024 2:38 PM CDT [facility] Comment:This test is for scr eening purposes. Results should be interpreted along with the clinical picture. Confirmation testing is available if warranted by ordering [id number], HCG Quantitative . Urine URINE SPECIMEN OBTAINED BY CLEAN CATCH PROCEDURE / Unknown Non-blood Collection / Unknown 06/05/2024 2:16 PM CDT 06/05/2024 2:24 PM CDT Erwin Muniz MD LAB - URINE ORDERABLES Final Result [facility] [address] Lab (1st floor, no room number) [place] [address] * EKG 12 lead (06/05/2024 1:47 PM CDT) Systolic Blood Pressure mmHg RADIOLOGY RESULTS Diastolic Blood Pressure mmHg RADIOLOGY RESULTS Ventricular Rate 78 BPM RAD IOLOGY RESULTS Atrial Rate 78 BPM RADIOLOG Y RESULTS RI Interval 164 ms RADIOLOG Y RESULTS QRS Duration 74 ms RADIOLO GY RESULTS QT 362 ms RADIOLOGY RESULTS QTc 412 ms RADIOLOGY RESULTS P Stirum 73 degrees RADIOLOGY RESULTS R AXIS 69 degrees RADIOLOGY RESULTS T Stirum 57 degrees RADIOLOGY RESULTS Interpretation ECG Sinus rhythm Normal ECG When compared with ECG of 29-Apr-2023 15:37, No significant change was found Confirmed by - EMERGENCY ROOM, PHYSICIAN ([id number]), book or script editor RICKIE BULLARD ([id number]) on 06/06/2024 6:40:07 AM RADIOLOGY RESULTS 06/05/2024 1:47 PM CDT 06/06/2024 6:40 AM CDT us Erwin Muniz MD ECG ORDERABLES Edited Result - Final RADIOLOGY RESULTS documented in this encounter Visit Diagnoses Diagnosis Epigastric pain Abdominal pain, epigastric documented in this encounter Administered Medications Inactive Administered Medications - up to 3 most recent administrations Medication Order MAR Action Action Date Dose Rate Site alum & mag hydroxide-simethicone (MAALOX) suspension 15 mL 15 mL, Oral, ONCE, On Tue06/05/24 at 1425, For 1 dose, Use for 'GI cocktail'. $Given 06/05/2024 2:34 PM CDT 15 mLs iopamidol (ISOVUE-370) solution 500 mL 500 mL, Intravenous, ONCE, On Tue06/05/24 at 1555, For 1 dose $Given 06/05/2024 3:54 PM CDT 79 mLs lidocaine (viscous) (XYLOCAINE) 2 % solution 5 mL 5 mL, Mouth/Throat, ONCE, On Tue06/05/24 at 1425, For 1 dose $Given 06/05/2024 2:35 PM CDT 5 mLs sodium chloride 0.9 % bag for CT scan flush Intravenous, 100 mL, ONCE, On Tue06/05/24 at 1555, For 1 dose, This entry is for use by Radiology to intermittently used as a flush in patients receiving a CT scan. $Given 06/05/2024 3:54 PM CDT 60 mLs documented in this encounter Active and Recently Administered Medications Times are shown in CDT. Scheduled Medication Order 06/03/2024 06/04/2024 06/05/2024 alum & mag hydroxide-simethicone (MAALOX) suspension 15 mL (COMPLETED) 15 mL, Oral, ONCE, On Tue06/05/24 at 1425, For 1 dose, Use for 'GI cocktail'. 1434 ($Given - Provi marcela: Kellee Lawler RN) iopamidol (ISOVUE-370) solution 500 mL (COMPLETED) 500 mL, Intravenous, ONCE, On Tue06/05/24 at 1555, For 1 dose 1554 ($Given - Provi marcela: ABBY Jones) lidocaine (viscous) (XYLOCAINE) 2 % solution 5 mL (COMPLETED) 5 mL, Mouth/Throat, ONCE, On Tue06/05/24 at 1425, For 1 dose 1435 ($Given - Provi marcela: Kellee Lawler RN) sodium chloride 0.9 % bag for CT scan flush (COMPLETED) Intravenous, 100 mL, ONCE, On Tue06/05/24 at 1555, For 1 dose, This entry is for use by Radiology to intermittently used as a flush in patients receiving a CT scan. 1554 ($Given - Provi marcela: ABBY Jones) documented in this encounter Care Teams Associate Director Data & Analytics Relationship Specialty Start Date End Date Hawa Dowling PA-C [address] [place] [address] PCP - General 03/27/24 William Fowler DO [address] [place] [address] Physician Neurology 07/04/23 Darrian Garrison MD [address] [place] [address] Physician Interventional Cardiology 03/26/24 Darrian Garrison MD [address] [place] [address] Assigned Heart and Vascular Provider 04/08/24 documented as of this encounter
--- OUTSIDE RECORDS SUMMARY | 2024-06-19 18:46 | XMS_ITS | Encounter Summary ---
Author Organization [facility] Address [address] [place] [address] Care Team Providers Care Route Delivery Clerk Name Role Phone [facility], [facility] Primary Care Provider William Fowler DO Unavailable + Darrian Garrison MD Unavailable Hawa Dowling PA-C Primary Care Provider [phone] Darrian Garrison MD Unavailable Encounter Details Date Type Department Care Team (Late st Contact Info) Description 03/26/2024 Orders Only [facility] [place] [address] [facility] [address] [place] [address] Reported, Patient Social History Tobacco Use Types Packs/Day Years [...] on file Legal Sex Female 4:28 AM [employer] Gender Identity Not on file Sexual Orientation Not on file documented as of this encounter Plan of Treatment Not on file documented as of this encounter Procedures Procedure Name Priority Date/Time Associated Diagnosis Comments LAB RESULT - HIM SCAN Routine 12/27/2023 3:19 PM [employer] EKG CARDIAC - HIM SCAN Routine 12/12/2023 3:20 PM CDT documented in this encounter Results * Lab Result - HIM Scan (12/27/2023 3:19 PM [employer]) us Patient Reported MH NON-BEAKER LAB TESTING Final Result * EKG Cardiac - HIM Scan (12/12/2023 3:20 PM CDT) Patient Reported ECG ORDERABLES Final Result documented in this encounter Visit Diagnoses Not on filedocumented in this encounter Care Teams Route Delivery Clerk Relationship Specialty Start Date End Date Clinic, [facility] [address] [place] [address] PCP - General 03/17/22 03/26/24 Hawa Dowling PA-C [facility] [address] [place] [address] PCP - General 03/27/24 William Fowler DO [address] [place] [address] Physician Neurology 07/04/23 Darrian Garrison MD [address] [place] [address] Physician Interventional Cardiology 03/26/24 Darrian Garrison MD [address] [place] [address] Assigned Heart and Vascular Provider 04/08/24 documented as of this encounter
--- OUTSIDE RECORDS SUMMARY | 2024-06-19 18:46 | XMS_ITS ---
Author Organization [facility]science [facility] Address [address] [address] Care Team Providers Care Field Spec Name Role Phone Bulmaro Suggs [facility] [phone] REASON FOR VISIT ALS concern and questions>> Early February, muscle twitching in calves and then other muscles.Normal EMG perfomed by local neurologist. Slowly improving. If symptoms worsen has been advised to follow up with her local neurologist. Encounters Encounter Location Date Provider Diagnosis [facility] [address] [facility] [address] [place] [address] 06/30/2023 Bulmaro Suggs Plan Of Treatment No Information Progress Notes * TORIBIO ROJASOB:1980 ( 42 yo F)Acc No.[id number]:06/30/2023 Patient: JOSE L COREY Provider: Guerrero Suggs MD, FAAN :1980 A ge:42 Y S ex:Female Date:06/30/2023 Address:[address] [id number] * * Sign off status: Completed true * Provider: Guerrero Suggs MD, FAAN Date: 0 06/30/2023 Generated for Printi ng/Faxing/eTransmitting on: 0 06/19/2024 07:45 PM EDT
--- OUTSIDE RECORDS SUMMARY | 2024-06-19 18:46 | XMS_ITS | Data Portability ---
Author Organization [facility] [place] [facility] Address [address] [facility] [address] [place] [address] Care Team Providers Care Cytogenetics Laboratory Manager Name Role Phone EDWIN MARTIN Primary Care Provider Assessment Encounter Date Assessment Date Assessment LastModified by Organization Details LastModified Time 01/18/2024 01/18/2024 43 yo F with incidental bladder wall thickening on CT. Discussed that bladder wall thickening is a nonspecific finding and can be related to infection, inflammation, bladder or outlet dysfunction, malignancy. - Cystoscopy performed today was normal - UA dipstick today without microhematuria or signs of infection - Will obtain urine cytology - Likely benign given: - No significant smoking history - Normal urinary habits - No hematuria - No risk factors - Follow-up as needed if urine cytology results normal [email or web address] Not available 01/19/2024 19:41:55 Plan of Treatment Reminders Order Date Submit Date Provider Last Modified By Organization Details Last Modified Time Details Appointments None recorde d. Lab cytolog y, urine 024 01/18/20 24 [facility] [facility], [address] [place] [address], [address], 20:52:28 Referral None recorde d. Procedures None recorde d. Surgeries None recorde d. Imaging None recorde d. Medication Orders None recorde d. Patient TargetsNo targets recorded. Patient InstructionsNo instructions recorded. Reason for Referral None Reported. Results Created Date Observation Date Name Description Value Unit Range Abnormal Flag Note LastModifiedBy Organization Detail LastModifiedTime 01/18/20 24 01/18/2024 URINE CYTOL OGY interpretati on cytotech: SEE NOTES Urine , Voide d, Surgi hloly Cytol ogy Profe ssion al Urine , Inter preta tion Cytot ec h: NEGAT CLAUDIA FOR MALIG NANT CELLS Speci men Adequ acy: Satis facto ry for evalu ati on Micro scopi c Findi ngs:- Scatt ered singl e uroth elial cells - Squam ous cells - Neutr ophil s- Bacte laura- Eryth rocyt es Not Available [facility] [address] [place], [address], 01/20/2024 20:52:28 01/18/20 24 01/18/2024 URINE CYTOL OGY interpretati on pathologist: SEE NOTES Urine , Voide d, Surgi holly Cytol ogy Profe ssion al Urine , Inter preta tion Patho lo gist: NEGAT CLAUDIA FOR MALIG NANT CELLS Speci men Adequ acy: Satis facto ry for evalu ation Micro scopi c Findi ngs:- Scatt ered singl e uroth elial cells - Squam ous ce lls- Neutr ophil s- Bacte laura- Eryth rocyt es Not Available [facility] [address] [place] [address], [address], 01/20/2024 20:52:28 01/18/20 24 01/18/2024 urina lysis , dipst ick BLOOD Negati ve Not Available [facility] [address], [place], [address], 01/18/2024 11:23:03 01/18/20 24 01/18/2024 urina lysis , dipst ick BILIRUBIN Negati ve Not Available [facility] [address], [place], [address], 01/18/2024 11:23:03 01/18/20 24 01/18/2024 urina lysis , dipst ick UROBILINOGEN 0.2 mg/dL (Norm) Not Available [facility] [address], [place], [address], 01/18/2024 11:23:03 01/18/20 24 01/18/2024 urina lysis , dipst ick KETONES Negati ve Not Available [facility] [address], [place], [address], 01/18/2024 11:23:03 01/18/20 24 01/18/2024 urina lysis , dipst ick PROTEIN Negati ve Not Available [facility] [address], [place], [address], 01/18/2024 11:23:03 01/18/20 24 01/18/2024 urina lysis , dipst ick NITRITES Negati ve Not Available [facility] [address], [place], [address], 01/18/2024 11:23:03 01/18/20 24 01/18/2024 urina lysis , dipst ick GLUCOSE 250 mg/dL Not Available [facility] [address], [place], [address], 01/18/2024 11:23:03 01/18/20 24 01/18/2024 urina lysis , dipst ick p.H. 5.0 Not Available [facility] [address], [place], [address], 01/18/2024 11:23:03 01/18/20 24 01/18/2024 urina lysis , dipst ick S.G. (Specific [place]) 1.015 Not Available [facility] [address], [place], [address], 01/18/2024 11:23:03 01/18/20 24 01/18/2024 urina lysis , dipst ick LEUKOCYTES Negati ve Not Available [facility] [address], [place], [address], 01/18/2024 11:23:03 01/16/20 24 04/29/2023 CT, abdom en + pelvi s, w/ contr ast No observ ation record ed. [email or web address] Not Available 2023 09:24:54 Result Notes None recorded. Problems Name Problem SNOMED Code Status Onset Date Resolution Date Notes Provider Name and Address Organization Details Recorded Time Recurrent urinary tract infection 955745883 Active Aurelia Smithmel [facility] 11:26:00 Abnormal findings on diagnostic imaging of urinary organs 353483382 Active Aurelia Smithmel [facility] 11:26:46 Problem Notes None recorded. Procedures Surgical History Date Name Laterality Status Provider Name and Address Organization Details Recorded Time CystoscopyFemale completed MP LEOS MD [address] [facility] [address], [place], [address] [place] [address] Urolog 01/18/2024 11:18:26 procedure on gallbladder completed Hallie Cash [facility] 01/18/2024 10:43:38 Imaging Results Imaging Date Name Status LastModified by Organiz ation Details LastModified Time 04/29/2023 CT, abdomen + pelvis, w/ contrast completed [email or web address] Information not available 01/16/2024 09:24:54 Procedure Notes None recorded. Medical Equipment None Reported. Allergies Allergen ID Allergen Name Allergen Category Reaction Reaction Severity Criticality Documentation Date Start Date Code Code System Note Provider Name and Address Organization Details Recorded Time 919387 Product containin g penicilli n (product) medicatio n Not available Not available Not available 01/18/2024 66487 8001 SNOMED Hallie Smith r [facility] 4 10:45:48 113699 cephalexi n medicatio n rash Not available Not available 01/20/2024 2231 RxNorm Miletzi Bergeron- Ly [facility] 10:19:28 Medications Name Sig Start Date Stop Date Status Note LastModified by Organization Details LastModified Time trazodone 50 mg tablet TAKE ONE TABLET BY MOUTH AT BEDTIME NEEDED 01/17 completed Not Available Not Available Not Available hydrocodone 5 mg-acetamin ophen 325 mg tablet TAKE ONE TO TWO TABLETS BY MOUTH EVERY 6 HOURS NEEDED FOR PAIN 01/17 completed Not Available Not Available Not Available prednisone 20 mg tablet TAKE ONE TABLET BY MOUTH TWICE A DAY 01/17 completed Not Available Not Available Not Available ketorolac 10 mg tablet TAKE ONE TABLET BY MOUTH THREE TIMES A DAY NEEDED FOR PAIN FOR 5 DAYS 01/17 completed Not Available Not Available Not Available benzonatate 100 mg capsule TAKE 1-2 CAPSULES BY MOUTH 2-3 TIMES A DAY NEEDED 01/17 completed Not Available Not Available Not Available pantoprazol e 40 mg tablet,chico yed release TAKE ONE TABLET BY MOUTH TWICE A DAY 30 MINUTES BEFORE A MEAL FOR 2 WEEKS, THEN DAILY 01/17 completed Not Available Not Available Not Available hydroxyzine HCl 25 mg tablet TAKE ONE TABLET BY MOUTH EVERY 4-6 HOURS NEEDED 01/17 completed Not Available Not Available Not Available codeine 10 mg-guaifene sin 100 mg/5 mL oral liquid TAKE 5ML BY MOUTH EVERY DAY AT BEDTIME 01/17 completed Not Available Not Available Not Available methylpredn isolone 4 mg tablets in a dose pack TAKE BY MOUTH PER PACKAGE DIRECTION S. 01/17 completed Not Available Not Available Not Available hydroxyzine HCl 10 mg tablet TAKE 1 TABLET BY MOUTH 3 TIMES A DAY NEEDED FOR ANXIETY 01/17 completed Not Available Not Available Not Available cefdinir 300 mg capsule TAKE ONE CAPSULE BY MOUTH TWICE A DAY 01/17 completed Not Available Not Available Not Available doxycycline hyclate 100 mg tablet TAKE ONE TABLET BY MOUTH TWICE A DAY FOR 7 DAYS 01/17 completed Not Available Not Available Not Available spironolact one 50 mg tablet TAKE 1 TABLET BY MOUTH EVERY MORNING 01/17 completed Not Available Not Available Not Available clindamycin 1 % lotion APPLY TO ACNE AREAS ALONG THE FACE TWO TIMES A DAY 01/17 completed Not Available Not Available Not Available levonorgest rel 0.15 mg-ethinyl estradiol 30 mcg tablets,3 mos pack(91) TAKE ONE TABLET BY MOUTH EVERY DAY active Not Available Not Available No t Available Vitals Date Recorded Body height Body mass index (BMI) Body weight Provider Name and Address Organization Details Last Updated DateTime 01/18/2024 177.8 cm 21.2 kg/m2 18828.67 g Hallie Cash [facility] 01/18/2024 10:45:40 Social History Question Answer Notes LastModified by Organizat ion Details LastModified Time Tobacco Smoking Status Former [facility]oker Socially during college [facility] 01/18/2024 10:47:18 What Is Your Level Of Alcohol Consumption? Occasional Information not available 01/18/2024 What Is Your Level Of Caffeine Consumption? Moderate Information not available 01/18/2024 When Did You Quit Smoking? 16+yearssincel astcigarette Information not available 01/18/2024 What Was The Date Of Your Most Recent Tobacco Screening? 01/18/2024 Information not available 01/18/2024 Sex: Unknown Functional Status None recorded. Mental Status None recorded. Family History Nothing Reported. Medical History Condition Response Other N High Blood Pressure N Kidney Stones N Lung Disease N Depression N GERD/Acid Reflux N Diabetes N Sexually Transmitted Infection N Bleeding Disorder N Cancer N High Cholesterol N Heart Disease N Gynecological HistoryNo gynecological history recorded. Obstetrics History GPAL:G 0 P 0 0 0 0 Immunizations Vaccine Type Date Status Note Provider Nam e and Address Organization Details Recorded Time Influenza, MDCK, quadrivalent, PF 0 [facility] 01/18[facility]2024 10:43:47 Influenza, MDCK, quadrivalent, PF 8 completed Hallie landa [facility] 01/18/2024 10:43:47 Influenza, recombinant, quadrivalent, PF 0 completed Hallie landa [facility] 01/18/2024 10:43:47 Tdap 1 [facility] 01/18/2024 10:43:47 Tdap 8 completed Hallie landa [facility] 01/18/2024 10:43:47 Novel [id number], all formulations 0 completed Hallie landa [facility] 01/18/2024 10:43:47 Influenza, split virus, trivalent, preservative 6 completed Hallie Maiestevan cordell, [facility]ID [facility] 01/18/2024 10:43:47 HPV, quadrivalent 8 completed Hallie Maiestevan cordell, [facility] 01/18/2024 10:43:48 HPV, quadrivalent 9 completed Hallie Maiestevan cordell, [facility] 01/18/2024 10:43:48 HPV, quadrivalent 8 [facility] 01/18/2024 10:43:48 Past Encounters Encounter ID Performer Location Encounter Start Date Encounter Closed Date Diagnosis/Indication Diagnosis SNOMED-CT Code Diagnosis ICD10 Code Diagnosis Note [id number] MP LEOS MD [facility] [address] [place] [address] 01/18/2024 10:24:06 01/20/2024 11:01:06 Abnormal findings on diagnostic imaging of urinary organs 415838940 R93.41 Health Concerns Section Related Observation LastModified by Organization Detai ls LastModified Time None Recorded Concern Status LastModified by Organization Details LastModified Time None Recorded Advance Directives Directive None Recorded Payers Encounter Date Sequence Insurance Name Policy Number Policy [place] Covered Member ID [place] Member ID Guarantor Name 01/18/2024 1 [place] [id number] Anh Calderon [id number] Anh Calderon Notes Date Note Type Note Provider Name and Address Organization Details Recorded Time 01/18/2024 text/html 43 yo F who pres ents as a new patient for evaluation of bladder wall thickening PMH: GERD, adenomyomatosis of gallbladderPSHx: cholecystectomy, ovarian cyst removal Notes reviewed:Seen 12/17/23 at [facility] for epigastric abdominal pain.Prior CT scan 04/29/23 showing nonspecific circumferential bladder wall thickening. Subjective:- Bladder wall thickening noted on imaging in April and repeat scan 1 month ago- Reports nocturia 1-2 times per night- Minor post-void dribbling- No urinary frequency, urgency, or stress incontinence- No hematuria- No history of UTIs- No difficulty emptying bladder- Reports IBS symptoms, possible celiac disease- PMHx: gallbladder surgery- Social: Former social smoker >20 years ago- OB history: 2 vaginal deliveries- Family history: No cancers- No history of kidney stonesObjective:- Vitals: Not obtained- Urinalysis pending, to be sent for cytology MP LEOS MD [address] [facility],[address], [place], [address], [facility] 01/19/2024 19:43:16 OBGyn Episode No OBEpisode recorded.
--- OUTSIDE RECORDS SUMMARY | 2024-06-19 18:46 | XMS_ITS | Clinical Summary ---
Author Organization [facility] Address [address] [place] [address] Care Team Providers Care Research Nurse Name Role Phone Modesto Borjas MD Primary Care Provider [phone] Allergies Active Allergy Reactions Criticality Noted Date Comments Blood-Group Specific Substance 06/09/2009 Patient has a Probable Passive Anti-D due to Rhogam. Blood product orders may be delayed. Cephalexin Rash 03/22/2024 Penicillins Hives 04/21/2005 Medications ORSYTHIA 0.1-20 mg-mcg tablet TAKE 1 TABLET BY MOUTH ONCE DAILY. TAKE CONTINUOUSLY 0 6 Active fluticasone (50 mcg per actuation) nasal solution (FLONASE)Indica tions:Acute pansinusitis, recurrence not specified Inhale 2 Sprays into both nostrils once daily. 1 Bottle 9 Active hydrocortisone (ANUSOL-HC) 2.5 % rectal cream APPLY TO AFFECTED AREA(S) TOPICALLY THREE TIMES A DAY NEEDED . 2 Active clindamycin 1% (CLEOCIN-T) 1 % lotion APPLY TOPICALLY TO FACE EVERY MORNING 2 Active hydrocortisone valerate (WESTCORT) 0.2 % ointment APPLY TO AFFECTED AREA(S) TOPICALLY TWO TIMES A DAY FOR ONE WEEK , THEN NEEDED 1 Active Active Problems Problem Noted Date Diagnosed Date Myopia of both eyes with astigmatism 10/27/2015 Supervision of other normal 06/01/2006 Migraine, unspecified, witho ut mention of intractable migraine without mention of status migrainosus 11/16/2005 Encounters Date Type Department Care Team Description 03/22/2024 8:20 AM VICE PRESIDENT CLIENT SERVICES Office Visit [facility] [address] [place] [address] Randall Mar, OD Eye Exam (CEE) 03/22/2024 Telephone [facility] [address] [place] [address] Randall Mar, OD 03/22/2024 Travel from Last 3 Months Immunizations Immunization Administration Dates Next Due Human Papilloma Virus [...] drink = 0.6 oz pur e alcohol) Comments No Sex and Gender Information Value Date Recorded Sex Assigned at Not on file Legal Sex Female 5:50 AM VICE PRESIDENT CLIENT SERVICES Gender Identity Not on file Sexual Orientation Not on file 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 on file Not on file Not on file Obstetrics History Para Term [...] Vag Livin g Summer Varun y Delivery Location:[place] Last Filed Vital Signs Vital Sign Reading Time Taken Comments Blood Pressure 104/70 08/21/2018 11:07 AM CDT Pulse 74 08/21/2018 11:07 AM CDT Temperature 36.7 C (98.1 F) 08/21/2018 11:07 AM CDT Respiratory Rate 18 08/21/2018 11:07 AM CDT [...] Tetanus booster 07/23/2017 07/24/2007 COVID-19 vaccine series ( season) 2023 Influenza Vaccine (Season Ended) 2024 11/24/2005 Tdap Completed 07/24/2007 HIV for age 15-65 Completed 06/04/2009 Pneumococcal series for age 6-49 Aged Out No longer eligible based on patient's age to complete this topic Procedures Procedure Name Priority Date/Time Associated Diagnosis Comments ANTI HIV 1/2 Routine 06/04/2009 12:03 PM CDT Supervision of other normal (HC) COMMERCIAL CREDIT REVIEWER THIN PREP PAP SCREEN IMAGED Routine 08/08/2008 10:11 AM CDT Screening for Malignant Neoplasm of the Cervix from Last 3 Months or Most Recently Relevant to Health Maintenance Results * ANTI HIV 1/2 (06/04/2009 12:03 PM CDT) ANTI HIV 1/2 Non-reacti ve [facility] Blood specimen (specimen) BLOOD SPECIMEN / Unknown 06/04/2009 12:03 PM CDT 06/04/2009 11:49 AM CDT us Adelina Worthington MD SEND OUTS Final R esult [facility] INTERNAL ZIP [address] [address] * COMMERCIAL CREDIT REVIEWER THIN PREP PAP SCREEN IMAGED (08/08/2008 10:11 AM CDT) CYTOLOGY CYTOPATHOLOGY REPORT [facility] Status: Final Report [id number] CLINICAL INFORMATION Date of Last LMP : 07/22/08 Last Pap Date : 07/24/07 Last Pap Result : NIL ABN Port [place]/Bx Past 5 YRS: None Hormone Usage : None Menstrual Status : Regular Periods Port Reading/Bx done today : No Additional Data : None given HPV Request : HPV if ASCUS SPECIMEN SOURCE : Cervical/vaginal ThinPrep Vial, screening SPECIMEN ADEQUACY : Satisfactory for evaluation Endocervical component present. INTERPRETATION/RES ULT: Negative for intraepithelial lesion or malignancy (NIL) Cytology 1st Screener : cml Cytology 2nd Screener : gn Signed by: avery This specimen was screened by the FDA approved ThinPrep Imaging System and manually reviewed. NOTE: The Pap test is a screening technique, not a diagnostic procedure. It is used primarily to screen for squamous cancers and precursor lesions. Published studies have shown that it is subject to both false negative and false positive results. The pap test should not be used as the sole means to diagnose or exclude pre-malignant and malignant lesions. COLLECTED: 08/08/08 ACCESSIONED: 08/08/08 SIGNED: 08/15/08 [facility] PAP BETHESDA CODE NIL [facility] Cervical/Vaginal (Cervical/Vagina l) 08/08/2008 10:11 AM CDT 08/08/2008 10:08 AM CDT us Ayana Duggan MD PATHOLOGY/CYTOLOGY Fi nal Result [facility] INTERNAL ZIP [address] [place] [id number] from Last 3 Months or Most Recently Relevant to Health Maintenance Insurance [facility] Care Teams Research Nurse Relationship Specialty [place] [id number] [address] [id number] PCP - General Family Practice 10/27/15
--- OUTSIDE RECORDS SUMMARY | 2024-06-19 18:46 | XMS_ITS | Clinical Summary ---
Author Organization [facility] Address [facility] [address] Care Team Providers Care Diffusion Furnace Operator Name Role Phone William Fowler DO Unavailable + Miguel Angel Garrison MD Unavailable Hawa Dowling PA-C Primary Care Provider [phone] Miguel Angel Garrison MD Unavailable Allergies Active Allergy Reactions Criticality Noted Date Comments Blood-Group Specific Substance 06/09/2009 Patient has a Probable Passive Anti-D due to Rhogam. Blood product orders may be delayed. Penicillins Hives 04/21/2005 Medications hydrOXYzine (ATARAX) 25 MG tablet Take 1 tablet (25 mg) by mouth 3 times daily as needed for anxiety 30 tablet 03/17/19 23 Active Additional Information Patient not taking.Reported on 03/27/2024 omeprazole (PRILOSEC) [address] capsule Take 1 capsule (20 mg) by mouth daily. 30 capsule 06/06/19 25 025 Active pantoprazole (PROTONIX) 40 MG EC tabletIndicatio ns:Chest pain, unspecified type Take 1 tablet (40 mg) by mouth daily. 60 tablet 03/27/19 025 Discontinued Active Problems Problem Noted Date Diagnosed Date Myopia of both eyes with astigmatism 10/27/2015 Migraine headache 11/16/2005 Encounters Date Type Department Care Team Description 06/05/2024 2:10 PM CDT - 06/05/2024 4:[address] [facility] Emergency Dept [address] [facility] [address] Erwin Muniz MD Epigastric pain Discharge Disposition: Home or Self Care 06/05/2024 Travel 04/20/2024 9:52 AM CABLE FORMER - 04/20/2024 11:59 PM CABLE FORMER Hospital [facility] [address] [facility] [place] [address] Jenelle Miranda MD Visit for screening mammogram Discharge Disposition: Home or Self Care 04/20/2024 Travel 04/13/2024 9:50 AM CABLE FORMER - 04/13/2024 11:59 PM CABLE FORMER Hospital Encounter [facility] Heart Care [facility] [place] [address] Miguel Angel Garrison MD Chest pain, unspecified type Discharge Disposition: Home or Self Care 04/13/2024 Travel 03/27/2024 8:20 AM CABLE FORMER Office Visit [facility] [address] [place] [address] Miguel Angel Garrison MD Chest pain, unspecified type (Primary Dx) 03/27/2024 Orders Only (auto-released) [facility] [address] [place] [address] Miguel Angel Garrison MD Chest pain, unspecified type 03/27/2024 Travel 03/26/2024 Orders Only [facility] [address] [place] [address] Reported, Patient from Last 3 Months Immunizations Name Administration Dates Next Due [id number] Novel Flu 04/03/2009 HPV Quadrivalent 08/08/2008,09/21/2007, 8 [...] on file Legal Sex Female 4:28 AM CABLE FORMER Gender Identity Not on file Sexual Orientation [...] Mass Index 22.52 06/05/2024 1:12 PM CDT Plan of Treatment Health Maintenance Due Date Last Done Comments ADVANCE CARE PLANNING 1980 ANNUAL REVIEW OF HM ORDERS 1980 HEPATITIS C SCREENING 11/07/1999 HEPATITIS B IMMUNIZATION (1 of 3 - 19+ 3-dose series) 2000 PAP 08/09/2011 08/08/2008 YEARLY PREVENTIVE VISIT 04/03/2022 04/03/2021, 03/12 COVID-19 Vaccine ( - season) 2023 INFLUENZA VACCINE (Season Ended) 2024 11/29/2019, 02/26/2019, 12/23/2017, Additional history exists LIPID 03/12/2025 03/12/2020 MAMMO SCREENING 04/20/2026 04/20/2024, 03/0 06/2023, 04/16/2022, Additional history exists DIABETES SCREENING 06/06/2027 06/05/2024, 0 04/29/2023, 03/17/2022, Additional history exists DTAP/TDAP/TD IMMUNIZATION (3 - Td or Tdap) 03/12/2030 03/12/2020, 07/24/2007, 07/24/2007 ZOSTER IMMUNIZATION (1 of 2) 11/07/2031 HPV IMMUNIZATION Completed 08/08/2008, 08/2007, 07/24/2007 HIV SCREENING Completed 06/04/2009, 06/04/2009 PHQ-2 (once per calendar year) Completed 03/27/2024, 03/12/2020 MENINGITIS IMMUNIZATION Aged Out No l onger eligible based on patient's age to complete this topic Pneumococcal Vaccine: Pediatrics (0 to 5 Years) and At-Risk Patients (6 to 49 Years) Aged Out No longer eligible based on patient's age to complete this topic Procedures Procedure Name Priority Date/Time Associated Diagnosis Comments CT ABDOMEN PELVIS W CONTRAST STAT 06/05/2024 3:57 PM CDT CBC WITH PLATELETS & DIFFERENTIAL STAT 06/05/2024 2:30 PM CDT CBC WITH PLATELETS AND DIFFERENTIAL STAT 06/05/2024 2:30 PM CDT LIPASE STAT 06/05/2024 2:30 PM CDT COMPREHENSIVE METABOLIC PANEL STAT 06/05/2024 2:30 PM CDT URINE CULTURE Add-On 06/05/2024 2:16 PM CDT ROUTINE UA WITH MICROSCOPIC REFLEX TO CULTURE STAT 06/05/2024 2:16 PM CDT HCG QUALITATIVE URINE STAT 06/05/2024 2:16 PM CDT EKG 12-LEAD, TRACING ONLY STAT 06/05/2024 1:47 PM CDT MA SCREENING WITH IMPLANTS BILATERAL W/ JOSE Routine 04/20/2024 10:06 AM CABLE FORMER Visit for screening mammogram ECHO COMPLETE Routine 04/13/2024 10:22 AM CABLE FORMER Chest pain, unspecified type MAGNESIUM Routine 03/27/2024 8:58 AM CABLE FORMER Chest pain, unspecified type CBC WITH PLATELETS Routine 03/27/2024 8 :58 AM CABLE FORMER Chest pain, unspecified type TSH WITH FREE T4 REFLEX Routine 03/27/2024 8:58 AM CABLE FORMER Chest pain, unspecified type LIPID REFLEX TO DIRECT LDL PANEL Routine 03/12/2020 12:03 PM CABLE FORMER Routine general medical examination at a health care facility from Last 3 Months or Most Recently Relevant to Health Maintenance Results * CT Abdomen Pelvis w Contrast [...] EXAM: CT ABDOMEN PELVIS W CONTRAST LOCATION: [facility] DATE: 06/05/2024 INDICATION: Abdominal pain COMPARISON: CT [...] EXAM: CT ABDOMEN PELVIS W CONTRAST LOCATION: [facility] DATE: 06/05/2024 INDICATION: Abdominal pain COMPARISON: CT [...] No hydronephrosis, bowel obstruction orintra-abdominal inflammatory process. Erwin Muniz MD IMG CT ORDERABLES Final [...] MD LAB - BLOOD ORDERABLES Final Result LABORATORY [facility] [address] Lab (1st floor, no room number) [address] * Lipase (06/05/2024 2:30 PM CDT) Lipase 32 13 - 60 U/L 06/05/2024 3:02 PM CDT [facility] Blood BLOOD SPECIMEN / Unknown Venipuncture / Unknown 06/05/2024 2:30 PM CDT 06/05/2024 2:39 PM CDT Erwin Muniz MD LAB - BLOOD ORDERABLES Final Result LABORATORY [facility] [address] Lab (1st floor, no room number) [address] * Comprehensive metabolic panel (06/05/2024 2:30 PM [...] >60 mL/min/1.7 3m2 06/05/2024 3:02 PM CDT LABORATORY Comment:eGFR calculated us2020 CKD-EPI equation. Calcium [...] - 45 U/L 06/05/2024 3:02 PM CDT LABORATORY ALT 16 0 - 50 U/L 06/05/2024 3:02 PM CDT LABORATORY Protein Total 6.8 6.4 - 8.3 g/dL 06/05/2024 3:02 PM CDT LABORATORY Albumin 4.4 3.5 - 5.2 g/dL 06/05/2024 3:02 PM CDT LABORATORY Bilirubin Total 0.6 <=1.2 mg/dL 06/05/2024 3:02 PM CDT LABORATORY Blood BLOOD SPECIMEN / Unknown Venipuncture / Unknown 06/05/2024 2:30 PM CDT 06/05/2024 2:39 PM CDT Erwin Muniz MD LAB - BLOOD ORDERABLES Final Result LABORATORY [facility] [address] Lab (1st floor, no room number) [place] [address], [facility] * HCG qualitative urine (06/05/2024 2:16 PM CDT) hCG Urine Qualitative Negative Negative MYRA 06/05/2024 2:38 PM CDT [facility] Comment:This test is for scr eening purposes. Results should be interpreted along with the clinical picture. Confirmation testing is available if warranted by ordering [id number], HCG Quantitative . Urine URINE SPECIMEN OBTAINED BY CLEAN CATCH PROCEDURE / Unknown Non-blood Collection / Unknown 06/05/2024 2:16 PM CDT 06/05/2024 2:24 PM CDT us Erwin Muniz MD LAB - URINE ORDERABLES Final Result LABORATORY [facility] [address] Lab (1st floor, no room number) [place] [address] * (ABNORMAL) UA with Microscopic reflex to Culture (06/05/2024 2:16 PM CDT) Color Urine Straw Colorless, Straw, Light Yellow, Yellow 06/05/2024 2:44 PM CDT LABORATORY Appearance Urine Clear Clear 06/06/19 2:44 PM CDT LABORATORY Glucose Urine Negative Negative mg/dL 06/05/2024 2:44 PM CDT LABORATORY Bilirubin Urine Negative Negative 2:44 PM CDT LABORATORY Ketones Urine Negative Negative mg/dL 06/05/2024 2:44 PM CDT LABORATORY Specific Otto Urine 1.003 1.003 - 1.035 06/05/2024 2:44 PM CDT LABORATORY Blood Urine Negative Negative 06/05/2024 2:44 PM CDT LABORATORY pH Urine 5.5 5.0 - 7.0 06/05/2024 2:44 PM CDT LABORATORY Protein Albumin Urine Negative Negative mg/dL 06/05/2024 2:44 PM CDT LABORATORY Urobilinogen Urine Normal Normal mg/dL 06/05/2024 2:44 PM CDT LABORATORY Nitrite Urine Negative Negative 06/05/2024 2:44 PM CDT [facility] Leukocyte Esterase Urine Negative Negative 06/05/2024 2:44 PM CDT LABORATORY Bacteria Urine Few(A) None Seen /HPF 06/05/2024 2:44 PM CDT LABORATORY RBC Urine <1 <=2 /HPF 06/05/2024 2:44 PM CDT [facility] WBC Urine 1 <=5 /HPF 06/05/2024 2:44 PM CDT LABORATORY Squamous Epithelials Urine 5(H) <=1 /HPF 06/05/2024 2:44 PM CDT [facility] Urine URINE SPECIMEN OBTAINED BY CLEAN CATCH PROCEDURE / Unknown Non-blood Collection / Unknown 06/05/2024 2:16 PM CDT 06/05/2024 2:24 PM CDT Narrative [facility] - 06/05/2024 2:44 PM CDT Urine Culture not indicated us Erwin Muniz MD LAB - URINE ORDERABLES Final Result [facility] LABORATORY [facility] [address] Lab (1st floor, no room number) [place] [address] * Urine Culture (06/05/2024 2:16 PM CDT) Culture No Growth 06/07/2024 4:40 AM CDT [facility]ORAT[facility] Urine URINE SPECIMEN OBTAINED BY CLEAN CATCH PROCEDURE / Unknown Non-blood Collection / Unknown 06/05/2024 2:16 PM CDT 06/05/2024 2:24 PM CDT us Erwin Muniz MD LAB - MICRO GENERAL ORD ERABLES Final Result [facility] LABORATORY [facility] Inf. Diseases Diag. Lab [address] [place] [address] * EKG 12 lead (06/05/2024 1:47 PM CDT) Systolic Blood Pressure mmHg RADIOLOGY RESULTS Diastolic Blood Pressure mmHg RADIOLOGY RESULTS Ventricular Rate 78 BPM RAD IOLOGY RESULTS Atrial Rate 78 BPM RADIOLOG Y RESULTS HI Interval 164 ms RADIOLOG Y RESULTS QRS Duration 74 ms RADIOLO GY RESULTS QT 362 ms RADIOLOGY RESULTS QTc 412 ms RADIOLOGY RESULTS P [place] 73 degrees RADIOLOGY RESULTS R AXIS 69 degrees RADIOLOGY RESULTS T [place] 57 degrees RADIOLOGY RESULTS Interpretation ECG Sinus rhythm Normal ECG When compared with ECG of 29-Apr-2023 15:37, No significant change was found Confirmed by - EMERGENCY ROOM, PHYSICIAN ([id number]), brands editor RICKIE BULLARD ([id number]) on 06/06/2024 6:40:07 AM RADIOLOGY RESULTS 06/05/2024 1:47 PM CDT 06/06/2024 6:40 AM CDT us Erwin Muniz MD ECG ORDERABLES Edited Result - Final RADIOLOGY RESULTS * MA Screen with Implants Bilateral w/Jose (04/20/2024 10:06 AM CABLE FORMER) Anatomical Region Laterality Modality Breast Bilateral Mammography Impressions 04/20/2024 11:03 AM CABLE FORMER IMPRESSION: ACR BI-RADS Category 2: Benign BREAST CANCER SCREENING RECOMMENDATION: Routine yearly mammography beginning at age 40 or as discussed with your provider. The results and recommendations of this examination will be communicated to the patient. Yomi Reyes MD Narrative 04/20/2024 11:03 AM CABLE FORMER BILATERAL FULL FIELD DIGITAL SCREENING MAMMOGRAM WITH TOMOSYNTHESIS Performed on: 04/20/24 Compared to: 04/19/2023 and 01/19/2017 Technique: This study was evaluated with the assistance of Computer-Aided Detection. Breast Tomosynthesis was used in interpretation. Findings: The breasts are heterogeneously dense, which may obscure small masses. There are breast augmentation changes. There is no radiographic evidence of malignancy. us Jenelle Miranda MD IMG MAMMOGRAPHY ORDERABLES Final Result * ECHO COMPLETE (04/13/2024 10:22 AM CABLE FORMER) Anatomical Region Laterality Modality Ultrasound, Ultr asound 04/13/2024 9:52 AM CABLE FORMER Narrative 04/13/2024 9:52 AM CABLE FORMER [id number] [address] Name: JOSE L ROJAS : 1980 Study Date: 04/13/2024 09:52 AM Age: 43 yrs Gender: Female Patient Location: [facility] Reason For Study: Chest pain, unspecified type Ordering Physician: MIGUEL ANGEL GARRISON Referring Physician: MIGUEL ANGEL GARRISON Performed By: ANA BSA: 1.9 m2 Height: 70 in Weight: 153 lb HR: 87 BP: 107/74 mmHg Procedure Echocardiogram with two-dimensional, color and spectral Doppler. Interpretation Summary 1. Normal left ventricular size and systolic performance with a visually estimated ejection fraction of 55%. 2. No significant valvular heart disease is identified on this study. 3. Normal right ventricular size and systolic performance. Left ventric Normal left ventricular size and systolic performance with a visually estimated ejection fraction of 55%. There is normal regional wall motion. Left ventricular wall thickness is normal. Assessment of LV Diastolic Function: The cumulative findings suggest normal diastolic filling [The septal e' velocity is > 7 cm/s & lateral e' velocity is > 10 cm/s. The average E/e' is < 14. The TR velocity cannot be determined due to insufficient tricuspid insufficiency signal. Left atrial volume index is less than 34 mL/m ]. Right ventricle: Normal right ventricular size and systolic performance. Left atrium: The left atrium is of normal size. Right atrium: The right atrium is of normal size. IVC: The IVC is of normal caliber. Aortic valve: The aortic valve is comprised of three cusps. No significant aortic stenosis or aortic insufficiency is detected on this study. Mitral valve: The mitral valve appears morphologically normal. There is trace mitral insufficiency. Tricuspid valve: The tricuspid valve is grossly morphologically normal. There is trace tricuspid insufficiency. Pulmonic valve: The pulmonic valve is grossly morphologically normal. Thoracic aorta: The aortic root and proximal ascending aorta are of normal dimension. Pericardium: There is no significant pericardial effusion. MMode/2D Measurements & Calculations IVSd: 0.82 cm LVIDd: 4.2 cm LVIDs: 3.0 cm LVPWd: 0.74 cm FS: 28.7 % LV mass(C)d: 97.5 grams LV mass(C)dI: 52.3 grams/m2 Ao root diam: 3.1 cm asc Aorta Diam: 3.1 cm LVOT diam: 2.1 cm LVOT area: 3.5 cm2 Ao root diam index Ht(cm/m): 1.7 Ao root diam index BSA (cm/m2): 1.7 Asc Ao diam index BSA (cm/m2): 1.7 Asc Ao diam index Ht(cm/m): 1.7 EF Biplane: 53.4 % LA Volume (BP): 24.1 ml LA Volume Index (BP): 13.0 ml/m2 LA Volume Indexed (AL/bp): 13.6 ml/m2 RV Base: 2.8 cm RWT: 0.36 TAPSE: 1.6 cm Time Measurements MM HR: 71.0 BPM Doppler Measurements & Calculations MV E max kingsley: 50.4 cm/sec MV A max kingsley: 44.5 cm/sec MV E/A: 1.1 MV dec slope: 176.0 cm/sec2 MV dec time: 0.29 sec Ao V2 max: 103.0 cm/sec Ao max P.0 mmHg Ao V2 mean: 68.6 cm/sec Ao mean P.0 mmHg Ao V2 VTI: 17.6 cm MEHREEN(I,D): 3.1 cm2 MEHREEN(V,D): 2.8 cm2 LV V1 max P.8 mmHg LV V1 max: 83.4 cm/sec LV V1 VTI: 15.7 cm SV(LVOT): 54.4 ml SI(LVOT): 29.2 ml/m2 PA V2 max: 88.5 cm/sec PA max P.1 mmHg PA acc time: 0.17 sec AV Kingsley Ratio (DI): 0.81 MEHREEN Index (cm2/m2): 1.7 E/E': 4.9 E/E' av.5 Lateral E/e': 4.1 Medial E/e': 4.9 Peak E' Kingsley: 10.2 cm/sec RV S Kingsley: 11.9 cm/sec Report approved by: Joshua Wills MD on 04/13/2024 12:45 PM Procedure Note Yaima Wills MD - 04/13/2024 [id number] [address] Name: JOSE L ROJAS : 1980 Study Date: 04/13/2024 09:52 AM Age: 43 yrs Gender: Female Patient Location: [facility] Reason For Study: Chest pain, unspecified type Ordering Physician: MIGUEL ANGEL GARRISON Referring Physician: MIGUEL ANGEL GARRISON Performed By: ANA BSA: 1.9 m2 Height: 70 in Weight: 153 lb HR: 87 BP: 107/74 mmHg Procedure Echocardiogram with two-dimensional, color and spectral Doppler. Interpretation Summary 1. Normal left ventricular size and systolic performance with a visually estimated ejection fraction of 55%. 2. No significant valvular heart disease is identified on this study. 3. Normal right ventricular size and systolic performance. Left ventric Normal left ventricular size and systolic performance with a visually estimated ejection fraction of 55%. There is normal regional wall motion.Left ventricular wall thickness is normal. Assessment of LV Diastolic Function: The cumulative findings suggestnormal diastolic filling [The septal e' velocity is > 7 cm/s & lateral e'velocity is > 10 cm/s. The average E/e' is < 14. The TR velocity cannot be determineddue to insufficient tricuspid insufficiency signal. Left atrial volume indexis less than 34 mL/m ]. Right ventricle: Normal right ventricular size and systolic performance. Left atrium: The left atrium is of normal size. Right atrium: The right atrium is of normal size. IVC: The IVC is of normal caliber. Aortic valve: The aortic valve is comprised of three cusps. No significant aorticstenosis or aortic insufficiency is detected on this study. Mitral valve: The mitral valve appears morphologically normal. There is trace mitral insufficiency. Tricuspid valve: The tricuspid valve is grossly morphologically normal. There is trace tricuspid insufficiency. Pulmonic valve: The pulmonic valve is grossly morphologically normal. Thoracic aorta: The aortic root and proximal ascending aorta are of normal dimension. Pericardium: There is no significant pericardial effusion. MMode/2D Measurements & Calculations IVSd: 0.82 cm LVIDd: 4.2 cm LVIDs: 3.0 cm LVPWd: 0.74 cm FS: 28.7 % LV mass(C)d: 97.5 grams LV mass(C)dI: 52.3 grams/m2 Ao root diam: 3.1 cm asc Aorta Diam: 3.1 cm LVOT diam: 2.1 cm LVOT area: 3.5 cm2 Ao root diam index Ht(cm/m): 1.7 Ao root diam index BSA (cm/m2): 1.7 Asc Ao diam index BSA (cm/m2): 1.7 Asc Ao diam index Ht(cm/m): 1.7 EF Biplane: 53.4 % LA Volume (BP): 24.1 ml LA Volume Index (BP): 13.0 ml/m2 LA Volume Indexed (AL/bp): 13.6 ml/m2 RV Base: 2.8 cm RWT: 0.36 TAPSE: 1.6 cm Time Measurements MM HR: 71.0 BPM Doppler Measurements & Calculations MV E max kingsley: 50.4 cm/sec MV A max kingsley: 44.5 cm/sec MV E/A: 1.1 MV dec slope: 176.0 cm/sec2 MV dec time: 0.29 sec Ao V2 max: 103.0 cm/sec Ao max P.0 mmHg Ao V2 mean: 68.6 cm/sec Ao mean P.0 mmHg Ao V2 VTI: 17.6 cm MEHREEN(I,D): 3.1 cm2 MEHREEN(V,D): 2.8 cm2 LV V1 max P.8 mmHg LV V1 max: 83.4 cm/sec LV V1 VTI: 15.7 cm SV(LVOT): 54.4 ml SI(LVOT): 29.2 ml/m2 PA V2 max: 88.5 cm/sec PA max P.1 mmHg PA acc time: 0.17 sec AV Kingsley Ratio (DI): 0.81 MEHREEN Index (cm2/m2): 1.7 E/E': 4.9 E/E' av.5 Lateral E/e': 4.1 Medial E/e': 4.9 Peak E' Kingsley: 10.2 cm/sec RV S Kingsley: 11.9 cm/sec Report approved by: Joshua Wills MD on 04/13/2024 12:45 PM us Miguel Angel Garrison MD CV ECHO ORDERABLES Edited Result - Final * TSH with free T4 reflex (03/27/2024 8:58 AM CABLE FORMER) TSH 1.22 0.30 - 4.20 uIU/mL 03/27/2024 10:35 AM CABLE FORMER [facility] Blood STRUCTURE OF LEFT UPPER LIMB / Unknown Venipuncture / Unknown 03/27/2024 8:58 AM CABLE FORMER 03/27/2024 10:03 AM CABLE FORMER us Miguel Angel Garrison MD LAB - BLOOD ORDERABLES Final Res ult N LABORATORY [facility] [address] * Magnesium (03/27/2024 8:58 AM CABLE FORMER) Magnesium 2.1 1.7 - 2.3 mg/dL 03/27/2024 10:22 AM [facility] Blood STRUCTURE OF LEFT UPPER LIMB / Unknown Venipuncture / Unknown 03/27/2024 8:58 AM CABLE FORMER 03/27/2024 10:03 AM CABLE FORMER us Miguel Angel Garrison MD LAB - BLOOD ORDERABLES Final Res ult N LABORATORY [facility] [address] * CBC with platelets (03/27/2024 8:58 AM CABLE FORMER) WBC Count 5.8 4.0 - 11.0 10e3/uL 03/27/2024 10:09 AM [facility] RBC Count 4.38 3.80 - 5.20 10e6/uL 03/27/2024 10:09 AM [facility] Hemoglobin 13.3 11.7 - 15.7 g/dL 03/27/2024 10:09 AM [facility] Hematocrit 40.5 35.0 - 47.0 % 03/27/2024 10:09 AM [facility] MCV 93 78 - 100 fL 03/27/2024 10:09 AM [facility] MCH 30.4 26.5 - 33.0 pg 03/27/2024 10:09 AM [facility] MCHC 32.8 31.5 - 36.5 g/dL 03/27/2024 10:09 AM [facility] RDW 12.4 10.0 - 15.0 % 03/27/2024 10:09 AM [facility] Platelet Count 253 150 - 450 10e3/uL 03/27/2024 10:09 AM [facility] Blood STRUCTURE OF LEFT UPPER LIMB / Unknown Venipuncture / Unknown 03/27/2024 8:58 AM CABLE FORMER 03/27/2024 10:03 AM CABLE FORMER us Miguel Angel Garrison MD LAB - BLOOD ORDERABLES Final Res ult [facility] [address] [place] [address], [facility] * Lipid panel reflex to direct LDL Fasting (03/12/2020 12:03 PM CABLE FORMER) Cholesterol 149 <200 mg/dL 03/13/2020 11:22 AM CABLE FORMER [facility] Triglycerides 63 <150 mg/dL 03/13/2020 11:22 AM CABLE FORMER [facility] Comment:Non Fasting HDL Cholesterol 59 >49 mg/dL 11:29 AM CABLE FORMER [facility] LDL Cholesterol Calculated 77 <100 mg/dL 03/13/2020 11:29 AM CABLE FORMER [facility] Comment:Desirable: <100 mg/ dl Non HDL Cholesterol 90 <130 mg/dL 03/13/2020 11:29 AM CABLE FORMER [facility] Blood specimen (specimen) 03/12/2020 12:03 PM CABLE FORMER 03/12/2020 12:04 PM CABLE FORMER us Asha Ashton APRN ASSISTANT CHILD CARE TEACHER LAB - BLOOD ORDERABLES F inal Result Performing Organization Address [facility]/ZIP Co de Phone Number [facility] [address] [place] [address] from Last 3 Months or Most Recently Relevant to Health Maintenance Insurance [facility] Care Teams Diffusion Furnace Operator Relationship Specialty Start Date End Date Hawa Dowling PA-C [facility] [phone] [place] [address] PCP - General 03/27/24 William Fowler DO [address] [place] [id number] Physician Neurology 07/04/23 Miguel Angel Garrison MD [address] [place] [address] Physician Interventional Cardiology 03/26/24 Miguel Angel Garrison MD [address] [place] [address] Assigned Heart and Vascular Provider 04/08/24
[2024-06-19 18:51] VITALS: BP 127/77; PULSE 92; RESP 20; TEMP 37.1; O2SAT 98; BMI 22.0
--- NOTE | 2024-06-19 19:43 | ED_ITS ---
HPI - General Adult General Chief complaint: Dizziness/Vertigo Stated complaint: dizziness/blurry vision Time Seen by Provider: 06/19/24 19:01 History of Present Illness HPI narrative: This 43-year-old female comes in reporting some visual changes that have started about 6 hours ago and lasted for about 30 minutes. Soon after this she developed a mild to moderate frontal and right-sided headache. She states that she does get headaches on occasion but has not had visual changes. She did not have any altered speech or unilateral weakness. These symptoms have now completely resolved. She states that the vision seemed to have some flickering bright lights and some episodes of double vision. Related Data Home Medications ?Medication ?Instructions ?Recorded ?Confirmed clindamycin phosphate 1 % lotion topical DAILY 12/27/23 03/12/24 omeprazole 40 mg capsule,delayed 40 mg PO BID 05/17/24 06/19/24 release Previous Rx's ?Medication ?Instructions ?Recorded methylprednisolone 4 mg tablets in See Rx Instructions PO .COMPLEX 06/19/24 a dose pack (Medrol (French)) #21 ea Allergies Allergy/AdvReac Type Severity Reaction Status Date / Time Penicillins Allergy Mild Rash Verified 06/19/24 18:50 shellfish derived Allergy throat Verified 06/19/24 18:50 itching, vomiting Review of Systems Status of ROS: Reports: 10 or more systems reviewed and unremarkable except as noted in History and below Narrative: Constitutional: No fevers, no weight gain or loss. Eyes: No discharge. Visual changes as described above. HENT: No congestion, no sore throat, no ear pain. Cardiovascular: No chest pain, no palpitations. Respiratory: No shortness of breath, no wheezes, no cough. Gastrointestinal: No abdominal pain, no vomiting, no diarrhea. Genitourinary: No dysuria, no hematuria. Musculoskeletal: Normal range of motion. Skin: No rashes, no pruritis. Neurological: No dizziness, weakness, sensory change, speech change. Endo/Heme/Allergies: No bruising or bleeding. No polydipsia. Pysch: no suicidality, no anxiety, no insomnia. All other systems reviewed and are negative. [facility] Medical History (Updated 06/19/24 @ 19:47 by Bull Chao MD) Adenomyomatosis of gallbladder ?D13.5 - Benign neoplasm of extrahepatic bile ducts (ICD-10) RUQ pain ?R10.11 - Right upper quadrant pain (ICD-10) Surgical History (Updated 01/09/24 @ 09:39 by Hawa Dowling PA-C) History of esophagogastroduodenoscopy (EGD) ?Z98.890 - Other specified postprocedural states (ICD-10) History of cholecystectomy ?Z90.49 - Acquired absence of other specified parts of digestive tract (ICD- 10) History of ovarian cystectomy ?Z98.890 - Other specified postprocedural states (ICD-10) ?Z87.42 - Personal history of other diseases of the female genital tract (ICD-10) Social History Narrative: 2 children drinks alcohol occasionally non-smoker Smoking Status: Former smoker Do you use any of these nicotine containing products: None Second hand tobacco smoke exposure: No How often do you have a drink containing alcohol: monthly or less AUDIT-C Alcohol total score: 1 Non-prescribed substance use: denies use Are you using contraception or practicing any form of control: No (hubs vasectomy.) Exam Narrative: Exam Narrative: Constitutional: Well-developed, well-nourished, no acute distress. HEENT: Normocephalic, atraumatic. Neck: Normal range of motion. Nontender. Supple. Heart: Regular. No murmurs. Normal rate. Intact distal pulses. Lungs: Clear to auscultation. No chest discomfort. No wheezes, rhonchi, or rales. Abdomen: Normal bowel sounds. Nontender. No rebound tenderness. Genitalia: Deferred. Back: No midline tenderness. Normal range of motion. Extremities: Normal range of motion. No injury. Skin: Intact. No rash. Warm. No erythema or pallor. Neurologic: No altered sensation. No weakness. Alert and oriented. No facial asymmetry. Tongue is midline. [id number] is normal. No pronator drift. Painter And Grader Cork strength is equal bilaterally. Able to raise each leg from the bed. Psychiatric: No suicidality. No anxiety or depression. No insomnia. Nursing notes and vitals signs are reviewed. Const: Vital Signs, click to edit/add: Vital Signs - 24 hr 06/19/24 18:51 Temperature 98.7 F Pulse Rate [Pulse Oximeter] 92 Respiratory Rate 20 Blood Pressure [Ri ght Upper Arm] 127/77 Pulse Oximetry 98 Oxygen Delivery Me thod Room Air Course Vital Signs Vital signs: Initial Vital Signs Temperature 98.7 F 06/19/24 18:51 Temperature Source Temporal Artery Scan 06/19/24 18:51 Pulse Rate 92 06/19/24 18:51 Respiratory Rate 20 06/19/24 18:51 Blood Pressure 127/77 06/19/24 18:51 Blood Pressure Mean 93 06/19/24 18:51 Pulse Oximetry 98 06/19/24 18:51 Oxygen Delivery Method Room Air 06/19/24 18:51 Vital Signs Temperature 98.7 F 06/19/24 18:51 Pulse Rate 92 06/19/24 18:51 Respiratory Rate 20 06/19/24 18:51 Blood Pressure 127/77 06/19/24 18:51 Pulse Oximetry 98 06/19/24 18:51 Oxygen Delivery Method Room Air 06/19/24 18:51 Temperature 98.7 F 06/19/24 18:51 Pulse Rate 92 06/19/24 18:51 Respiratory Rate 20 06/19/24 18:51 Blood Pressure 127/77 06/19/24 18:51 Pulse Oximetry 98 06/19/24 18:51 Oxygen Delivery Method Room Air 06/19/24 18:51 Medical Decision Making MDM Narrative Medical decision making narrative: This patient comes in reporting visual changes that proceeded a migraine-type headache. Her neurologic exam is completely normal. Vital signs and the rest of her exam also was completely normal. The patient also feels back to normal at this time but has some anxiety about these symptoms which are a new experience for her. I did show images of scintillating scotoma on a website and the patient did identify with some of those typical images at occur. I did discuss lab and imaging options with the patient and in a process of shared decision making these were declined. The patient did have an MRI less than 2 months ago with normal findings. She does report some peripheral neuropathy and has been seeing a neurologist regarding this. She is okay to be discharged home. I did provide a prescription for Medrol Dosepak. Discharge Plan Discharge Clinical Impression: Migraine headache with aura Patient Disposition: Home, Self-Care Condition: Stable Additional Instructions: Take medication as prescribed. Continue current plans otherwise. Follow up with MD as needed or return if worsening. Prescriptions: New methylprednisolone [Medrol (French)] 4 mg tablets,dose pack See Rx Instructions .ROUTE .COMPLEX Qty: 21 0RF Rx Instructions: orally per package directions No Action clindamycin phosphate 1 % lotion topical DAILY omeprazole 40 mg capsule,delayed release(DR/EC) 40 mg PO BID Follow Up/Referrals: Hawa Dowling PA-C [Primary Care Provider] - Stand Alone Forms: [employer] Info Instructions
--- OUTSIDE RECORDS SUMMARY | 2024-06-19 19:51 | XMS_ITS | Clinical Summary ---
Author Organization [place] Address [facility] [place] [address] Care Team Providers Care Death Claim Clerk Name Role Phone William Fowler DO Unavailable + Miguel Angel Garrison MD Unavailable Hawa Dowling PA-C Primary Care Provider [phone] Miguel Angel Garrison MD Unavailable Allergies Active [...] PM CDT - 06/05/2024 4:58 PM CDT [facility] Emergency Dept [address] [facility] [address] Erwin Muniz MD Epigastric pain Discharge Disposition: Home or Self Care 06/05/2024 Travel 04/20/2024 9:52 AM CORN SHREDDER - 04/20/2024 11:59 PM CORN SHREDDER Hospital Encounter [facility] [address] [facility] [address] [place] [address] Jenelle Miranda MD Visit for screening mammogram Discharge Disposition: Home or Self Care 04/20/2024 Travel 04/13/2024 9:50 AM CORN SHREDDER - 04/13/2024 11:59 PM CORN SHREDDER Hospital Encounter [facility] Heart Care [facility] [place] [address] Miguel Angel Garrison MD Chest pain, unspecified type Discharge Disposition: Home or Self Care 04/13/2024 Travel 03/27/2024 8:20 AM CORN SHREDDER Office Visit [facility] [address] [place] [address] Miguel Angel Garrison MD Chest pain, unspecified type (Primary Dx) 03/27/2024 Orders Only (auto-released) [facility] [address] [place] [address] Miguel Angel Garrison MD Chest pain, unspecified type 03/27/2024 Travel 03/26/2024 Orders Only [facility] [address] [place] [address] Reported, Patient from Last 3 Months Immunizations Name Administration Dates Next Due [id number] Novel Flu 04/03/2009 HPV Quadrivalent 08/08/2008,09/21/2007, 8 [...] on file Legal Sex Female 4:28 AM CORN SHREDDER Gender Identity Not on file Sexual Orientation [...] BILATERAL W/ JOSE Routine 04/20/2024 10:06 AM CORN SHREDDER Visit for screening mammogram ECHO COMPLETE Routine 04/13/2024 10:22 AM CORN SHREDDER Chest pain, unspecified type MAGNESIUM Routine 03/27/2024 8:58 AM CORN SHREDDER Chest pain, unspecified type CBC WITH PLATELETS Routine 03/27/2024 8 :58 AM CORN SHREDDER Chest pain, unspecified type TSH WITH FREE T4 REFLEX Routine 03/27/2024 8:58 AM CORN SHREDDER Chest pain, unspecified type LIPID REFLEX TO DIRECT LDL PANEL Routine 03/12/2020 12:03 PM CORN SHREDDER Routine general medical examination at a health [...] EXAM: CT ABDOMEN PELVIS W CONTRAST LOCATION: [facility] DATE: 06/05/2024 INDICATION: Abdominal pain COMPARISON: CT [...] EXAM: CT ABDOMEN PELVIS W CONTRAST LOCATION: [facility] DATE: 06/05/2024 INDICATION: Abdominal pain COMPARISON: CT [...] LAB - BLOOD ORDERABLES Final Result LABORATORY [facility] [address] Lab (1st floor, no room number) [address] * Lipase (06/05/2024 2:30 PM CDT) Lipase 32 13 - 60 U/L 06/05/2024 3:02 PM CDT [facility] Blood BLOOD SPECIMEN / Unknown Venipuncture / Unknown 06/05/2024 2:30 PM CDT 06/05/2024 2:39 PM CDT Erwin Muniz MD LAB - BLOOD ORDERABLES Final Result LABORATORY [facility] [address] Lab (1st floor, no room number) [address] * Comprehensive metabolic panel (06/05/2024 2:30 [...] LAB - BLOOD ORDERABLES Final Result LABORATORY [facility] [address] Lab (1st floor, no room number) [place] [address], [facility] * HCG qualitative urine (06/05/2024 2:16 PM CDT) hCG Urine Qualitative Negative Negative MYRA 06/05/2024 2:38 PM CDT [facility] Comment:This test is for scr eening purposes. Results should be interpreted along with the clinical picture. Confirmation testing is available if warranted by ordering [id number], HCG Quantitative . Urine URINE SPECIMEN OBTAINED BY CLEAN CATCH PROCEDURE / Unknown Non-blood Collection / Unknown 06/05/2024 2:16 PM CDT 06/05/2024 2:24 PM CDT us Erwin Muniz MD LAB - URINE ORDERABLES Final Result LABORATORY [facility] [address] Lab (1st floor, no room number) [place] [address] * (ABNORMAL) UA with Microscopic reflex to Culture (06/05/2024 2:16 PM CDT) Color Urine Straw Colorless, Straw, Light Yellow, Yellow 06/05/2024 2:44 PM CDT LABORATORY Appearance Urine Clear Clear 06/06/19 2:44 PM CDT LABORATORY Glucose Urine Negative Negative mg/dL 06/05/2024 2:44 PM CDT LABORATORY Bilirubin Urine Negative Negative 2:44 PM CDT LABORATORY Ketones Urine Negative Negative mg/dL 06/05/2024 2:44 PM CDT LABORATORY Specific [place] Urine 1.003 1.003 - 1.035 06/05/2024 2:44 [...] - URINE ORDERABLES Final Result [facility] LABORATORY [facility] [address] Lab (1st floor, no room number) [place] [address] * Urine Culture (06/05/2024 2:16 PM CDT) Culture No Growth 06/07/2024 4:40 AM CDT [facility] Urine URINE SPECIMEN OBTAINED BY CLEAN CATCH PROCEDURE / Unknown Non-blood Collection / Unknown 06/05/2024 2:16 PM CDT 06/05/2024 2:24 PM CDT us Erwin Muniz MD LAB - MICRO GENERAL ORD ERABLES Final Result [facility] LABORATORY [facility] Inf. Diseases Di[facility]. Lab [address] [facility] [place] [address] * EKG 12 lead (06/05/2024 1:47 PM CDT) Systolic Blood Pressure mmHg RADIOLOGY RESULTS Diastolic Blood Pressure mmHg RADIOLOGY RESULTS Ventricular Rate 78 BPM RAD IOLOGY RESULTS Atrial Rate 78 [address] Interval 164 ms RADIOLOG Y RESULTS QRS Duration 74 ms RADIOLO GY RESULTS QT 362 ms RADIOLOGY RESULTS QTc 412 ms RADIOLOGY RESULTS P Bryan 73 degrees RADIOLOGY RESULTS R AXIS 69 degrees RADIOLOGY RESULTS T Bryan 57 degrees RADIOLOGY RESULTS Interpretation ECG Sinus rhythm Normal ECG When compared with ECG of 29-Apr-2023 15:37, No significant change was found Confirmed by - EMERGENCY ROOM, PHYSICIAN ([id number]), general expeditor RICKIE BULLARD ([id number]) on 06/06/2024 6:40:07 AM RADIOLOGY RESULTS 06/05/2024 1:47 PM CDT 06/06/2024 6:40 AM CDT us Erwin Muniz MD ECG ORDERABLES Edited Result - Final RADIOLOGY RESULTS * MA Screen with Implants Bilateral w/Jose (04/20/2024 10:06 AM CORN SHREDDER) Anatomical Region Laterality Modality Breast Bilateral Mammography Impressions 04/20/2024 11:03 AM CORN SHREDDER IMPRESSION: ACR BI-RADS Category 2: Benign BREAST CANCER SCREENING RECOMMENDATION: Routine yearly mammography beginning at age 40 or as discussed with your provider. The results and recommendations of this examination will be communicated to the patient. Yomi Reyes MD Narrative 04/20/2024 11:03 AM CORN SHREDDER BILATERAL FULL FIELD DIGITAL SCREENING MAMMOGRAM WITH [...] Result * ECHO COMPLETE (04/13/2024 10:22 AM CORN SHREDDER) Anatomical Region Laterality Modality Ultrasound, Ultr asound 04/13/2024 9:52 AM CORN SHREDDER Narrative 04/13/2024 9:52 AM CORN SHREDDER [id number] [address] Name: JOSE L ROJAS : 1980 Study Date: 04/13/2024 09:52 AM Age: 43 yrs Gender: Female Patient Location: [facility] Reason For Study: Chest pain, unspecified [...] Procedure Note Yaima Wills MD - 04/13/2024 [id number] [address] Name: JOSE L ROJAS : 1980 Study Date: 04/13/2024 09:52 AM Age: 43 yrs Gender: Female Patient Location: [facility] Reason For Study: Chest pain, unspecified [...] Peak E' Kingsley: 10.2 cm/sec RV S Knigs[place]: 11.9 cm/sec Report approved by: Joshua Wills MD on 04/13/2024 12:45 PM us Miguel Angel Garrison MD CV ECHO ORDERABLES Edited Result - Final * TSH with free T4 reflex (03/27/2024 8:58 AM CORN SHREDDER) TSH 1.22 0.30 - 4.20 uIU/mL 03/27/2024 10:35 AM CORN SHREDDER [facility]AT[facility] Blood STRUCTURE OF LEFT UPPER LIMB / Unknown Venipuncture / Unknown 03/27/2024 8:58 AM CORN SHREDDER 03/27/2024 10:03 AM CORN SHREDDER us Miguel Angel Garrison MD LAB - BLOOD ORDERABLES Final Res ult N LABORATORY [facility] [address] * Magnesium (03/27/2024 8:58 AM CORN SHREDDER) Magnesium 2.1 1.7 - 2.3 mg/dL 03/27/2024 10:22 AM [facility] Blood STRUCTURE OF LEFT UPPER LIMB / Unknown Venipuncture / Unknown 03/27/2024 8:58 AM CORN SHREDDER 03/27/2024 10:03 AM CORN SHREDDER us Miguel Angel Garrison MD LAB - BLOOD ORDERABLES Final Res ult N LABORATORY [facility] [address] * CBC with platelets (03/27/2024 8:58 AM CORN SHREDDER) WBC Count 5.8 4.0 - 11.0 10e3/uL 03/27/2024 10:09 AM [facility] RBC Count 4.38 3.80 - 5.20 10e6/uL 03/27/2024 10:09 AM [facility] Hemoglobin 13.3 11.7 - 15.7 g/dL 03/27/2024 10:09 AM [facility] Hematocrit 40.5 35.0 - 47.0 % 03/27/2024 10:09 AM [facility] MCV 93 78 - 100 fL 03/27/2024 10:09 AM [facility] MCH 30.4 26.5 - 33.0 pg 03/27/2024 10:09 AM [facility] MCHC 32.8 31.5 - 36.5 g/dL 03/27/2024 10:09 AM [facility] RDW 12.4 10.0 - 15.0 % 03/27/2024 10:09 AM [facility] Platelet Count 253 150 - 450 10e3/uL 03/27/2024 10:09 AM [facility] Blood STRUCTURE OF LEFT UPPER LIMB / Unknown Venipuncture / Unknown 03/27/2024 8:58 AM CORN SHREDDER 03/27/2024 10:03 AM CORN SHREDDER us Miguel Angel Garrison MD LAB - BLOOD ORDERABLES Final Res ult [facility] LABORATORY [facility] [address] [place] [address], [facility] * Lipid panel reflex to direct LDL Fasting (03/12/2020 12:03 PM CORN SHREDDER) Cholesterol 149 <200 mg/dL 03/13/2020 11:22 AM CORN SHREDDER [facility] Triglycerides 63 <150 mg/dL 03/13/2020 11:22 AM CORN SHREDDER [facility] Comment:Non Fasting HDL Cholesterol 59 >49 mg/dL 11:29 AM CORN SHREDDER [facility] LDL Cholesterol Calculated 77 <100 mg/dL 03/13/2020 11:29 AM CORN SHREDDER [facility] Comment:Desirable: <100 mg/ dl Non HDL Cholesterol 90 <130 mg/dL 03/13/2020 11:29 AM CORN SHREDDER [facility] Blood specimen (specimen) 03/12/2020 12:03 PM CORN SHREDDER 03/12/2020 12:04 PM CORN SHREDDER us Asha Ashton APRN PRODUCE ASSOCIATE LAB - BLOOD ORDERABLES F inal Result Performing Organization Address [facility]/ZIP Co de Phone Number [facility] [address] [place] [address] from Last 3 Months or Most Recently Relevant to Health Maintenance Insurance [facility] Care Teams Death Claim Clerk Relationship Specialty Start Date End Date Hawa Dowling PA-C [facility] [id number] [place] [id number] PCP - General 03/27/24 William Fowler DO [address] [place] [address] Physician Neurology 07/04/23 Miguel Angel Garrison MD [address] [place] [address] Physician Interventional Cardiology 03/26/24 Miguel Angel Garrison MD [address] [place] [address] Assigned Heart and Vascular Provider 04/08/24
--- OUTSIDE RECORDS SUMMARY | 2024-06-19 19:51 | XMS_ITS | Clinical Summary ---
Author Organization [facility] Address [address] [place] [address] Care Team Providers Care Placement Manager Name Role Phone Modesto Borjas MD Primary Care Provider [phone] Allergies Active Allergy Reactions Criticality Noted Date [...] Department Care Team Description 03/22/2024 8:20 AM INDUSTRIAL X RAY OPERATOR Office Visit [facility] [address] [place] [address] Randall Mar, OD Eye Exam (CEE) 03/22/2024 Telephone [facility] [address] [place] [address] Randall Mar, OD 03/22/2024 Travel from Last [...] on file Legal Sex Female 5:50 AM INDUSTRIAL X RAY OPERATOR Gender Identity Not on file Sexual [...] Vag Livin g Summer Varun y Delivery Location:[place] Last Filed Vital Signs Vital Sign Reading [...] PM CDT Supervision of other normal (HC) DIRECTOR OF LABORATORY OPERATIONS THIN PREP PAP SCREEN IMAGED Routine 08/08/2008 10:11 AM CDT Screening for Malignant Neoplasm of the Cervix from Last 3 Months or Most Recently Relevant to Health Maintenance Results * ANTI HIV 1/2 (06/04/2009 12:03 PM CDT) ANTI HIV 1/2 Non-reacti ve [facility] Blood specimen (specimen) BLOOD SPECIMEN / Unknown 06/04/2009 12:03 PM CDT 06/04/2009 11:49 AM CDT us Adelina Worthington MD SEND OUTS Final R esult [facility] INTERNAL ZIP [id number] [address] * DIRECTOR OF LABORATORY OPERATIONS THIN PREP PAP SCREEN IMAGED (08/08/2008 10:11 AM CDT) CYTOLOGY CYTOPATHOLOGY REPORT [facility] Status: Final Report [id number] CLINICAL INFORMATION Date of Last LMP : 07/22/08 Last Pap Date : 07/24/07 Last Pap Result : NIL ABN [place]/Bx Past 5 YRS: None Hormone Usage : None Menstrual Status : Regular Periods [place]/Bx done today : No Additional Data : [...] lesions. COLLECTED: 08/08/08 ACCESSIONED: 08/08/08 SIGNED: 08/15/08 [facility] PAP BETHESDA CODE NIL [facility] Cervical/Vaginal (Cervical/Vagina l) 08/08/2008 10:11 AM CDT 08/08/2008 10:08 AM CDT us Ayana Duggan MD PATHOLOGY/CYTOLOGY Fi nal Result [facility] INTERNAL ZIP [address] [place] [address] from Last 3 Months or Most Recently Relevant to Health Maintenance Insurance [facility] Care Teams Placement Manager Relationship Specialty [place] [address] [address] [id number] PCP - General Family Practice 10/27/15
--- OUTSIDE RECORDS SUMMARY | 2024-06-19 19:51 | XMS_ITS | Encounter Summary ---
Author Organization [facility] Address [address] [place] [address] Care Team Providers Care Barrel Maker Name Role Phone William Fowler DO Unavailable + Darrian Garrison MD Unavailable Hawa Dowling PA-C Primary Care Provider [phone] Darrian Garrison MD Unavailable Encounter Details Date [...] on file Legal Sex Female 4:28 AM STICK INSERTER Gender Identity Not on file Sexual Orientation Not on file documented as of this encounter Plan of Treatment Not on file documented as of this encounter Visit Diagnoses Not on filedocumented in this encounter Care Teams Barrel Maker Relationship Specialty Start Date End Date Hawa Dowling PA-C [address] [place] [address] PCP - General 03/27/24 William Fowler DO [address] [place] [address] Physician Neurology 07/04/23 Darrian Garrison MD [address] [place] [address] Physician Interventional Cardiology 03/26/24 Darrian Garrison MD [address] [place] [address] Assigned Heart and Vascular Provider 04/08/24 documented as of this encounter
--- OUTSIDE RECORDS SUMMARY | 2024-06-19 19:51 | XMS_ITS | Encounter Summary ---
Author Organization [facility] Address [address] [place] [address] Care Team Providers Care Tool Designer Apprentice Name Role Phone [facility], [facility] Primary Care Provider William Fowler DO Unavailable + Darrian Garrison MD Unavailable Hawa Dowling PA-C Primary Care Provider [phone] Darrian Garrison MD Unavailable Encounter Details Date Type Department Care Team (Late st Contact Info) Description 03/26/2024 Orders Only [facility] [place] [address] [place] [address] Reported, Patient Social History Tobacco [...] on file Legal Sex Female 4:28 AM CREDIT PROFESSIONAL Gender Identity Not on file Sexual Orientation Not on file documented as of this encounter Plan of Treatment Not on file documented as of this encounter Procedures Procedure Name Priority Date/Time Associated Diagnosis Comments LAB RESULT - HIM SCAN Routine 12/27/2023 3:19 PM CREDIT PROFESSIONAL EKG CARDIAC - HIM SCAN Routine 12/12/2023 3:20 PM CDT documented in this encounter Results * Lab Result - HIM Scan (12/27/2023 3:19 PM CREDIT PROFESSIONAL) us Patient Reported MH NON-BEAKER LAB TESTING Final Result * EKG Cardiac - HIM Scan (12/12/2023 3:20 PM CDT) Patient Reported ECG ORDERABLES Final Result documented in this encounter Visit Diagnoses Not on filedocumented in this encounter Care Teams Tool Designer Apprentice Relationship Specialty Start Date End Date Clinic, [facility] [address] [place] [id number] PCP - General 03/17/22 03/26/24 Hawa Dowling PA-C [facility] [address] [place] [address] PCP - General 03/27/24 William Fowler DO [address] [place] [address] Physician Neurology 07/04/23 Darrian Garrison MD [address] [place] [address] Physician Interventional Cardiology 03/26/24 Darrian Garrison MD [address] [place] [address] Assigned Heart and Vascular Provider 04/08/24 documented as of this encounter
--- OUTSIDE RECORDS SUMMARY | 2024-06-19 19:51 | XMS_ITS | Encounter Summary ---
Author Organization [facility] Address [address] [place] [address] Care Team Providers Care Printing Services Coordinator Name Role Phone Farhan Fowlerony Lewis CHADWICK Unavailable + Darrian Garrison MD Unavailable Hawa Dowling PA-C Primary Care Provider [phone] Darrian Garrison MD Unavailable Reason for Visit * Reason Comments Abdominal Pain Encounter Details Date Type Department Care Team (Late st Contact Info) Description 06/05/2024 2:10 PM CDT - 06/05/2024 4:58 PM CDT Emergency [facility] [address] [place] [phone] Erwin Muniz MD [address] [place], [place] [phone] Epigastric pain Discharge Disposition: Home or Self [...] on file Legal Sex Female 4:28 AM TURN OUT Gender Identity Not on file Sexual Orientation [...] new or worsening pain 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 Omeprazole and Protonix are from the same class of medications. From our conversation it seems mostlikely that you are using Pepcid (famotidine). You should be taking 20 mg of Pepcid twice daily along with either omeprazole or Protonix once daily. * Attachments The following attachments cannot be sent through Care Everywhere. * Dyspepsia (Ukrainian) documented in this encounter Medications at Time [...] Bilirubin Urine Negative Ketones Urine Negative Specific [place] Urine 1.003 Blood Urine Negative pH Urine [...] Pressure Ventricular Rate 78 Atrial Rate 78 MA Interval 164 QRS Duration 74 QT 362 QTc 412 P [place] 73 R AXIS 69 T [place] 57 Interpretation ECG Sinus rhythm Normal ECG When compared with ECG of 29-Apr-2023 15:37, No significant change was found ED Course Medications Administered Medications alum & mag hydroxide-simethicone (MAALOX) suspension 15 mL (15 mLs Oral $Given 06/05/24 1174) lidocaine (viscous) (XYLOCAINE) 2 % solution 5 [...] EXAM: CT ABDOMEN PELVIS W CONTRAST LOCATION: [facility] DATE: 06/05/2024 INDICATION: Abdominal pain COMPARISON: [...] EXAM: CT ABDOMEN PELVIS W CONTRAST LOCATION: [facility] DATE: 06/05/2024 INDICATION: Abdominal pain COMPARISON: [...] MD LAB - BLOOD ORDERABLES Final Result [facility] [address] Lab (1st floor, no room number) [address] * Lipase (06/05/2024 2:30 PM CDT) Lipase 32 13 - 60 U/L 06/05/2024 3:02 PM CDT LABORATORY Blood BLOOD SPECIMEN / Unknown Venipuncture / Unknown 06/05/2024 2:30 PM CDT 06/05/2024 2:39 PM CDT Erwin Muniz MD LAB - BLOOD ORDERABLES Final Result [facility] [address] Lab (1st floor, no room number) [place] [phone] [place] [address] * Comprehensive metabolic panel (06/05/2024 2:30 PM [...] - BLOOD ORDERABLES Final Result [facility] [address] Lab (1st floor, no room number) [place] [address], [facility] * Urine Culture (06/05/2024 2:16 PM CDT) Culture No Growth 06/07/2024 4:40 AM CDT [facility] Urine URINE SPECIMEN OBTAINED BY CLEAN CATCH PROCEDURE / Unknown Non-blood Collection / Unknown 06/05/2024 2:16 PM CDT 06/05/2024 2:24 PM CDT us Erwin Muniz MD LAB - MICRO GENERAL ORD ERABLES Final Result [facility] Inf. Diseases Diag. Lab [address] [facility] [place] [address], [facility] * (ABNORMAL) UA with Microscopic [...] mg/dL 06/05/2024 2:44 PM CDT LABORATORY Specific [place] Urine 1.003 1.003 - 1.035 06/05/2024 2:44 [...] URINE ORDERABLES Final Result Performing Organization Address City/[facility]/ZIP Co de Phone Number [facility] [address] Lab (1st floor, no room number) [place] [phone] [place] [address] * HCG qualitative urine (06/05/2024 2:16 PM CDT) hCG Urine Qualitative Negative Negative MYRA 06/05/2024 2:38 PM CDT [facility] Comment:This test is for scr eening purposes. Results should be interpreted along with the clinical picture. Confirmation testing is available if warranted by ordering [id number], HCG Quantitative . Urine URINE SPECIMEN OBTAINED BY CLEAN CATCH PROCEDURE / Unknown Non-blood Collection / Unknown 06/05/2024 2:16 PM CDT 06/05/2024 2:24 PM CDT Erwin Muniz MD LAB - URINE ORDERABLES Final Result [facility] [address] Lab (1st floor, no room number) [place] [address] * EKG 12 lead (06/05/2024 1:47 PM CDT) Systolic Blood Pressure mmHg RADIOLOGY RESULTS Diastolic Blood Pressure mmHg RADIOLOGY RESULTS Ventricular Rate 78 BPM RAD IOLOGY RESULTS Atrial Rate 78 BPM RADIOLOG Y RESULTS MA Interval 164 ms RADIOLOG Y RESULTS QRS Duration 74 ms RADIOLO GY RESULTS QT 362 ms RADIOLOGY RESULTS QTc 412 ms RADIOLOGY RESULTS P [place] 73 degrees RADIOLOGY RESULTS R AXIS 69 degrees RADIOLOGY RESULTS T [place] 57 degrees RADIOLOGY RESULTS Interpretation ECG Sinus rhythm Normal ECG When compared with ECG of 29-Apr-2023 15:37, No significant change was found Confirmed by - EMERGENCY ROOM, PHYSICIAN ([id number]), editor farm journal RICKIE BULLARD ([id number]) on 06/06/2024 6:40:07 AM [...] Jones) documented in this encounter Care Teams Printing Services Coordinator Relationship Specialty Start Date End Date Hawa Dowling PA-C [address] [place] [address] PCP - General 03/27/24 William Fowler DO [address] [place] [address] Physician Neurology 07/04/23 Darrian Garrison MD [address] [place] [address] Physician Interventional Cardiology 03/26/24 Darrian Garrison MD [address] [place] [address] Assigned Heart and Vascular Provider 04/08/24 documented as of this encounter
== END 2024-06-19 19:58 | disposition home or self-care (01) ==
LOC: ED 19:49
PROVIDERS: Emergency Provider Emergency Medicine Emergency Medical Services; PCP Physician Assistant Medical
DX: G43.109 Migraine with aura, not intractable, without status migrainosus (principal)
CPT/HCPCS: 99283; 99284